=== PATIENT | female | born 1940 | race Caucasian/White ===

== ENCOUNTER 2019-10-02 09:33 | Outpatient (CLI) | payer MEDICARE, SELFPAY ==
--- NOTE | ~2019-10-02 | CT_ITS ---
EXAMINATION: CT chest abdomen pelvis w con EXAM DATE: 10/02/2019 10:12 INDICATION: B-cell lymphoma. TECHNIQUE: Spiral CT of the chest, abdomen and pelvis was performed following intravenous injection o f 100 mL Omnipaque 350. Axial, coronal and sagittal images were reviewed. Coronal maximum intensity pixel images of chest reviewed. The dose-length product (DLP) for this examination was 407.00 mGy-c m. The exposure was tailored according to patient size (auto mA exposure control), and iterative rec onstruction (ASIR) was used as additional dose reduction technique. Comparison is made to prior exami nation from 01/25/2019. FINDINGS: CHEST: Linear bibasilar subsegmental atelectasis. Cervical fusion hardware. Left-sided Chemo-Port, i ntact line. There are no pleural or pericardial effusions. Tracheobronchial tree is patent. Ther e is no mediastinal, hilar or axillary lymphadenopathy. There is no pneumothorax. Heart normal in size. No evidence of coronary arterial calcification. ABDOMEN PELVIS: Again there is extensive low density fat stranding within the mesentery extending fro m the root along the vasculature, likely treated lymphoma. Again there is bilobulated pancreatic yoli l cystic lesion, size unchanged, measuring up to about 2.7 cm with some peripheral calcifications. Th e differential diagnosis includes pseudocyst, intraductal papillary mucinous neoplasm (IPMN), mucinou s cystic neoplasm (MCN), and the less common serous cystadenoma and neuroendocrine tumor. Correlate f or history of pancreatitis. Scattered liver cysts up to 1.4 cm. There is peripherally calcified gallstone. No biliary duct dilati on. Portal and splenic veins are patent. Kidneys enhance symmetrically. There is no hydronephrosis . The uterus is retroverted and morphologically normal. The bladder is unremarkable. There is no retroperitoneal or pelvic lymphadenopathy. There is mild scattered arteriosclerotic disease. The appendix is not positively visualized. There is no pericecal inflammatory change to suggest appe ndicitis. There is mild sigmoid predominant colonic diverticulosis. There is no adjacent inflammato ry change to suggest diverticulitis. The stomach and small bowel are unremarkable. There is expected amount of colonic stool. No free intraperitoneal gas. There are no osteoblastic or osteolytic le sions identified. IMPRESSION: 1. Mesenteric root low density fat stranding likely treated lymphoma, unchanged. 2. Stable tail cystic mass, differential diagnosis above. 3. Mild sigmoid diverticulosis. 4. Cholelithiasis. Reviewed, dictated and finalized at location A. OLE MANAGER IMPRESSION: 1. Mesenteric root low density fat stranding likely treated lymphoma, unchange d. 2. Stable tail cystic mass, differential diagnosis above. 3. Mild sigmoid diverticulosis. 4. Cholelithiasis.
== END 2019-10-02 09:34 | disposition home or self-care (01) ==
LOC: ANHIMG 09:38
PROVIDERS: Visit Provider Internal Medicine Hematology & Oncology
DX: C85.18 Unspecified B-cell lymphoma, lymph nodes of multiple sites (principal); K80.20 Calculus of gallbladder without cholecystitis without obstruction; K57.30 Diverticulosis of large intestine without perforation or abscess without bleeding
CPT/HCPCS: 71260; 74177; Q9967

== ENCOUNTER 2020-05-12 08:57 | Emergency (ER) | payer MEDICARE, SELFPAY ==
[2020-05-12 09:05] VITALS: BP 160/81; PULSE 83; RESP 17; TEMP 36.2; O2SAT 99
--- NOTE | 2020-05-12 09:16 | ED.GENADULT ---
HPI - General Adult General Chief complaint: Urogenital-Female Stated complaint: hematuria Time Seen by Provider: 05/12/20 09:12 History of Present Illness HPI narrative: Patient is a 79-year-old female who presents ER with hematuria. Began last night at 10 PM. Reports she has had some suprapubic discomfort for the last couple of days. No fevers or chills or sweats. No nausea or vomiting. Had a UTI 1 month ago that was treated with Keflex for a week. Recently completed chemotherapy for non-Hodgkin's lymphoma. No flank pain or abdominal pain at this time. Patient is also suffering from some sciatica issues and has been taking naproxen and cyclobenzaprine. Patient does not take any blood thinners. Related Data Home Medications Medication Instructions Recorded Confirmed ascorbic acid (vitamin C) 500 mg PO DAILY 06/19/19 05/10/20 cholecalciferol (vitamin D3) 1,000 unit PO DAILY 06/19/19 05/10/20 [Vitamin D3] hydrocodone-acetaminophen 1 - 2 tablet PO Q4-6M PRN 06/19/19 05/10/20 vitamin B complex 1 cap PO DAILY 06/19/19 05/10/20 acetaminophen 650 mg 650 mg PO Q12H 01/25/20 05/10/20 tablet,extended release atenolol 25 mg PO DAILY 03/15/20 05/10/20 Allergies Allergy/AdvReac Type Severity Reaction Status Date / Time Mlfvzcw-Bor-Kea Reductase Allergy Unknown Muscle pain Verified 05/12/20 09:07 Inhibitor Review of Systems Review of Systems: All systems reviewed & are unremarkable except as noted in HPI and below Constitutional: Constitutional: Denies chills, Denies fever(s) and Denies weakness Respiratory: Respiratory: Denies cough and Denies dyspnea Gastrointestinal: Gastrointestinal: Reports abdominal pain, Denies diarrhea, Denies nausea and Denies vomiting Genitourinary: Genitourinary: Reports hematuria, Denies nocturia, Denies dysuria and Denies flank pain PMFSH Social History Social History Smoking status: Never smoker Second hand tobacco smoke exposure: No Alcohol intake: never Substance use: never Gender identity (if verbalized by the patient): Female Exam Narrative: Exam Narrative: GENERAL: Well-appearing, well-nourished, and in no acute distress. HEAD: Normocephalic, atraumatic. ENT: Mucous membranes moist. CHEST: Clear to auscultation. No respiratory distress. HEART: Regular rate and rhythm. Normal peripheral pulses. ABDOMEN: Soft, nontender, nondistended, normal active bowel sounds. EXTREMITIES: Normal range of motion. No edema. NEURO: Alert and oriented x3. PSYCH: Normal mood and affect. Course Course Emergency Course: Informed of results. D/c. Vital Signs Vital signs: Vital Signs Temperature 97.1 F L 05/12/20 09:05 Pulse Rate 83 05/12/20 09:05 Respiratory Rate 17 05/12/20 09:05 Blood Pressure 160/81 H 05/12/20 09:05 Pulse Oximetry 99 05/12/20 09:05 Temperature 97.1 F L 05/12/20 09:05 Pulse Rate 83 05/12/20 09:05 Respiratory Rate 17 05/12/20 09:05 Blood Pressure 160/81 H 05/12/20 09:05 Pulse Oximetry 99 05/12/20 09:05 Medical Decision Making Vital Signs Vital Signs: Vital Signs Temperature 97.1 F L 05/12/20 09:05 Pulse Rate 83 05/12/20 09:05 Respiratory Rate 17 05/12/20 09:05 Blood Pressure 160/81 H 05/12/20 09:05 Pulse Oximetry 99 05/12/20 09:05 Temperature 97.1 F L 05/12/20 09:05 Pulse Rate 83 05/12/20 09:05 Respiratory Rate 17 05/12/20 09:05 Blood Pressure 160/81 H 05/12/20 09:05 Pulse Oximetry 99 05/12/20 09:05 Lab Data Result diagrams: 05/12/20 09:15 05/12/20 09:15 Labs: Lab Results 05/12/20 05/12/20 05/12/20 Range/Units 09:15 09:15 09:15 WBC 8.4 (4.5-10.0) K/mm3 RBC 4.17 L (4.2-5.4) M/mm3 Hgb 12.7 (12.0-15.0) g/dL Hct 37.7 (37.0-47.0) % MCV 90.4 (80-100) fl MCH 30.5 (26-34) pg MCHC 33.7 (32-36) g/dl RDW 13.1 (11.5-14.5) % Plt Count 317 (150-375) k/m
[2020-05-12 09:21] LABS: Basophils Absolute Auto 0.1 K/mm3 (0.0-0.1); Basophils Percent Auto 0.9 % (0.2-1.2); Eosinophils Absolute Auto 0.2 K/mm3 (0-0.3); Eosinophils Percent Auto 2.1 % (0-4.4); Hematocrit 37.7 % (37.0-47.0); Hemoglobin 12.7 g/dL (12.0-15.0); Immature Granulocyte Absolute 0.02 K/mm3 (0.00-0.031); Immature Granulocyte Percent A 0.2 % (0-0.5); Lymphocytes Absolute Auto 1.86 K/mm3 (0.9-3.2); Mean Corpuscular HGB Conc 33.7 g/dl (32-36); Mean Corpuscular Hemoglobin 30.5 pg (26-34); Mean Corpuscular Volume 90.4 fl (80-100); Mean Platelet Volume 9.3 fl (7.4-10.4); Monocytes Absolute Auto 0.8 K/mm3 (0.1-0.6); Monocytes Percent Auto 8.9 % (2.6-8.5); Neutrophils Absolute Auto 5.6 K/mm3 (1.3-6.7); Neutrophils Percent Auto 65.9 % (45.5-73.1); Platelet Count Result 317 k/mm3 (150-375); Red Blood Count 4.17 M/mm3 (4.2-5.4); Red Cell Distribution Width 13.1 % (11.5-14.5); White Blood Count 8.4 K/mm3 (4.5-10.0)
[2020-05-12 09:27] LABS: Add Urine Microscopic? YES; Appearance Urine Cloudy (Clear); Bacteria Urine Trace /hpf; Bilirubin Urine Negative (Negative); Blood Urine 3+ (Negative); Color Urine Red (Yellow); Glucose Urine UA Negative (Negative); Ketones Urine Negative (Negative); Leukocyte Esterase Ur Trace LEU/UL (Negative); Nitrate Urine Negative (Negative); Protein Urine 2+ mg/dL (Negative); RBC Urine >75 /hpf (0-2); Specific Grav Ur 1.011 (1.001-1.035); Urobilinogen Urine Negative mg/dL (<2.0); WBC Urine 51-75 /hpf
[2020-05-12 09:38] LABS: Anion Gap 9 mmol/L (8-16); Blood Urea Nitrogen 22 mg/dL (7-17); Calcium 9.1 mg/dL (8.4-10.2); Carbon Dioxide 24 mmol/L (22-30); Chloride 107 mmol/L (98-107); Estimated CRCL calculation 27 ml/min; Estimated Glomerular Filt Rate 43; Glucose 92 mg/dL (65-105); Potassium 4.5 mmol/L (3.4-5.0); Sodium 140 mmol/L (137-145)
== END 2020-05-12 10:14 | disposition home or self-care (01) ==
PROVIDERS: Emergency Provider Emergency Medicine; PCP Family Medicine
DX: N30.90 Cystitis, unspecified without hematuria (principal); C85.90 Non-Hodgkin lymphoma, unspecified, unspecified site
CPT/HCPCS: 36415; 80048; 81001; 85025; 87086; 87088; 99283

== ENCOUNTER 2020-05-23 12:52 | Outpatient (CLI) | payer MEDICARE, SELFPAY ==
--- NOTE | 2020-05-23 12:55 | ECG_ITS ---
Measurements Intervals [place] Rate: 62 P: -50 VT: 136 QRS: -17 QRSD: 94 T: 42 QT: 406 QTc: 414 Interpretive Statements SINUS OR ECTOPIC ATRIAL RHYTHM RSR' IN V1 OR V2, CONSIDER RIGHT VENTRICULAR HYPERTROPHY OR RIGHT VCD POSSIBLE LEFT VENTRICULAR HYPERTROPHY BORDERLINE ECG Electronically Signed On 05-23-2020 13:15:20 CDT by Shay Cornell D.O.
== END 2020-05-23 12:53 | disposition home or self-care (01) ==
PROVIDERS: PCP Family Medicine; Visit Provider Urology
DX: Z01.818 Encounter for other preprocedural examination (principal); N13.30 Unspecified hydronephrosis; I10 Essential (primary) hypertension
CPT/HCPCS: 87086; 87088; 93005

== ENCOUNTER 2020-05-25 01:20 | Outpatient (CLI) | payer MEDICARE, SELFPAY ==
[2020-05-25 17:48] LABS: SARS-CoV-2 RNA PCR Negative
== END 2020-05-25 01:21 | disposition home or self-care (01) ==
LOC: ANHCOVIDDT 01:20
PROVIDERS: PCP Family Medicine; Visit Provider Urology
DX: Z01.812 Encounter for preprocedural laboratory examination (principal); Z20.828 Contact with and (suspected) exposure to other viral communicable diseases
CPT/HCPCS: 87635; C9803; U0003

== ENCOUNTER 2020-05-27 10:43 | Outpatient (CLI) | payer MEDICARE, SELFPAY ==
--- NOTE | ~2020-05-27 | US_ITS ---
EXAMINATION: US pelvic complete w TV EXAM DATE: 05/27/2020 11:42 INDICATION: Postmenopausal bleeding. TECHNIQUE: Pelvic transabdominal and transvaginal sonogram was performed. There are multiple graysca le and Doppler images available for interpretation. There is no prior study for comparison. FINDINGS: Uterus measures 6.6 x 5.1 x 4.5 cm, with a fluid pocket inside the endometrium identified on the transvaginal portion of exam measuring 3.5 x 1.6 x 4.1 cm. There are multiple uterine calcific ations. No endometrial measurement was obtained but it would include the thickness of the fluid so wo uld be considered enlarged. There is no free pelvic fluid. Right adnexa: The ovary is not identified. There is no adnexal mass. Left adnexa: The ovary is not identified. There is no adnexal mass. IMPRESSION: Sizable endometrial fluid pocket of uncertain clinical significance. Endometrial cancer n ot excludable. Reviewed, dictated and finalized at location A. IMPRESSION: Sizable endometrial fluid pocket of uncertain clinical significance . Endometrial cancer not excludable.
== END 2020-05-27 10:44 | disposition home or self-care (01) ==
LOC: ANHIMG 10:45
PROVIDERS: PCP Family Medicine; Visit Provider Student in an Organized Health Care Education/Training Program
DX: N95.0 Postmenopausal bleeding (principal)
CPT/HCPCS: 76830; 76856

== ENCOUNTER 2020-05-28 02:20 | Day surgery (SDC) | payer MEDICARE, SELFPAY ==
[2020-05-22 11:27] VITALS: BMI 24.5
--- NOTE | ~2020-05-28 | XR_ITS ---
EXAMINATION: XR retrograde pyelogram RT EXAM DATE: 05/28/2020 08:52 INDICATION: TECHNIQUE: Fluoroscopy used during XR retrograde pyelogram RT performed by Dr. Ben Vela MD. The DAP for this procedure was 0.15 mGym2. FINDINGS: Right ureter was cannulated, injected and is unremarkable. The calyces are unremarkable. Correlate with procedure note. IMPRESSION: Fluoroscopy used during XR retrograde pyelogram RT. Reviewed, dictated and finalized at location A.
[2020-05-28] MEDS: LACTATED RINGERS 1,000 ML 30 ML IV CONT (07:11)
--- NOTE | 2020-05-28 07:16 | WPDHPUPDATE1 ---
History and Physical Update Update Date/Time: 05/28/20 07:16 History and Physical has been reviewed, including an updated exam of the patient. There are NO changes in the patient's condition. Risks, benefits, and alternatives have been discussed and questions answered. Patient agrees to proceed with procedure. Plan for cystoscopy , left retrograde, left ureteral stent placement.
[2020-05-28 07:28] VITALS: BP 166/81; PULSE 58; RESP 18; TEMP 36.4; O2SAT 100
--- NOTE | 2020-05-28 07:46 | WPDANESEPPF ---
Anes - Initial Pre Proc Eval Procedure: Operation Date: 05/28/20 08:30 Proposed Procedures p Cystoscopy, Left Stent Placement, Left Retrograde Pyelogram - Ben Vela MD Date/Time: 05/28/20 07:46 Surgeon: Ben Vela MD Pre Op Diagnosis: hydronephrosis left side Patient Data Age: 79 Gender: F Height: 5 ft 2 in Weight: 60.9 kg Last Vital Signs Temp 36.4 C 05/28/20 07:28 Pulse 58 L 05/28/20 07:28 Resp 18 05/28/20 07:28 BP 166/81 H 05/28/20 07:28 Pulse Ox 100 05/28/20 07:28 Allergies Allergy/AdvReac Type Severity Reaction Status Date / Time Zvqsqpp-Mfb-Ayy Reductase AdvReac Unknown Muscle pain Verified 05/22/20 11:23 Inhibitor Home Medications Medication Instructions Recorded Confirmed Type ascorbic acid (vitamin C) 500 mg PO DAILY 06/19/19 05/28/20 History cholecalciferol (vitamin D3) 1,000 unit PO DAILY 06/19/19 05/28/20 History [Vitamin D3] hydrocodone-acetaminophen 1 - 2 tablet PO Q4-6M PRN 06/19/19 05/28/20 History vitamin B complex 1 cap PO DAILY 06/19/19 05/28/20 History atenolol 25 mg PO QAM 05/22/20 05/28/20 History Patient hx anesthesia problems: none Family hx anesthesia problems: none PMFSH Past Medical History Medical History (Updated 05/28/20 @ 07:50 by Ben Vela MD) Anxiety (~05/2018) HTN (hypertension) Hyperlipidemia Non-Hodgkins lymphoma (~09/2017) Surgical History Surgical History History of appendectomy (~1979) History of back surgery (~1974) History of carpal tunnel release (~1999) History of hemorrhoidectomy (~1959) History of neck surgery (~2001) Family History Family History Other Cerebrovascular accident Diabetes mellitus Family history of coronary artery disease Social History Social History Smoking status: Never smoker Second hand tobacco smoke exposure: No Alcohol intake: never Substance use: never Living arrangements: with family Additional living arrangements comments: SON WITH PREVIOUS HEAD INJURY- JAMES Gender identity (if verbalized by the patient): Female Spiritual care concerns: No Anes - Eval Final PreProcedure Day of Procedure 05/28/20 07:46 Patient weight: normal Heart: regular rate and rhythm Lungs: clear to auscultation Airway: Mallampati scale class II Neurological: alert and oriented Last oral intake: >/= 8 hours ASA classification: III Emergent: no Anesthetic plan: proceed Anesthesia type and monitoring: general LMA and standard monitoring Informed Consent: The patient's anesthetic plan and its attendant risks and benefits were discussed with the patient/family/POA. Questions were solicited and answers provided to the satisfaction of the patient/family/POA.
--- NOTE | 2020-05-28 07:49 | PM.IMHP ---
H&P: HPI History of Present Illness Date/Time: 05/28/20 07:49 Chief complaint: hydronephrosis left side Narrative: Sylvia Donnelly is a 79 year old female with left hydronephrosis secondary to extrinsic obstruction Review of Systems Review of Systems: All systems reviewed & are unremarkable except as noted in HPI and below PMFSH Past Medical History Medical History Anxiety (~05/2018) HTN (hypertension) Hyperlipidemia Non-Hodgkins lymphoma (~09/2017) Surgical History Surgical History History of appendectomy (~1979) History of back surgery (~1974) History of carpal tunnel release (~1999) History of hemorrhoidectomy (~1959) History of neck surgery (~2001) Family History Family History Other Cerebrovascular accident Diabetes mellitus Family history of coronary artery disease Social History Social History Smoking status: Never smoker Second hand tobacco smoke exposure: No Alcohol intake: never Substance use: never Living arrangements: with family Additional living arrangements comments: SON WITH PREVIOUS HEAD INJURY- JAMES Gender identity (if verbalized by the patient): Female Spiritual care concerns: No Meds Home Medications and Allergies Home Medications Medication Instructions Recorded Confirmed Type ascorbic acid (vitamin C) 500 mg PO DAILY 06/19/19 05/28/20 History cholecalciferol (vitamin D3) 1,000 unit PO DAILY 06/19/19 05/28/20 History [Vitamin D3] hydrocodone-acetaminophen 1 - 2 tablet PO Q4-6M PRN 06/19/19 05/28/20 History vitamin B complex 1 cap PO DAILY 06/19/19 05/28/20 History atenolol 25 mg PO QAM 05/22/20 05/28/20 History Allergies Allergy/AdvReac Type Severity Reaction Status Date / Time Vknzshw-Qia-Pom Reductase AdvReac Unknown Muscle pain Verified 05/22/20 11:23 Inhibitor Vital Signs Vital Signs - 24 hr 05/28/20 07:28 Temperature 36.4 C Pulse Rate 58 L Respiratory Rate 18 Blood Pressure 166/81 H Pulse Oximetry 100 Exam Const: General: no acute distress HENMT: General nose exam: Normal nares present Eyes: General: appearance normal, both eyes and all related structures Resp: Effort & Inspection: normal respiratory effort Cardio: Rate: regular rate GI: GI Palp: Yes Soft to palpation Skin: General skin exam: normal color Neuro: Speech: normal speech Assessment and Plan Assessment and plan (1) Hydronephrosis, left: Code(s): N13.30 - Unspecified hydronephrosis Status: Acute Assessment and Plan: Cystoscopy with left retrograde, left ureteral stent placement.
[2020-05-28] MEDS: ceFAZolin 2 GM/D5W 50 ML 2 GM/50 ML BAG IVPB (08:05)
[2020-05-28] MEDS: LIDOCAINE HCL 2% GEL UROJET 10 ML PKG MUCOUS MEM (08:44)
[2020-05-28 08:52] VITALS: BP 121/69; PULSE 52; RESP 14; O2SAT 100
--- NOTE | 2020-05-28 08:56 | P.OP_ITS ---
Procedure Note - Detailed Date of procedure: 05/28/20 Pre-op diagnosis: hydronephrosis left side Post-op diagnosis: same (Obliteration of left pili trigone with possible lesion) Procedure performed: Cystoscopy, transurethral resection of bladder lesion overlying left ureteral orifice/pili trigone, right retrograde pyelogram Description of procedure: Patient is taken to the operative suite and correctly identified. Once anesthesia was obtained she was placed in dorsal lithotomy position and prepped and draped usual sterile fashion. Twenty-two Chinese scope was inserted bladder. Bladder was noted to have significant irregularity over t he left pili trigone. It was vascular in nature and raised. There was no discrete papillary tumors noted. We were unable to visualize any left ureteral orifice. The right ureteral orifice was seen. At this point we decided to resect this area for tissue diagnosis. Despite the resection we were still unable to locate any ureteral orifice.. A right retrograde pyelogram was performed to confirm no significant obstruction on that side. There were no lesions noted. Specimens were sent for final pathologic review. 2% viscous lidocaine was inserted urethra. There was good hemostasis at termination of procedure. Patient is taken recovery stable condition. Patient has left hydronephrosis has been longstanding as she has been asymptomatic. We will see whether pathology shows. If she develops any left flank pain she may require a nephrostomy tube. Further management pending her pathology. Have discussed the case with her niece, Peg, today Anesthesia: GLMA Surgeon: Ben Vela MD Drains: No Packing: No Pathology: yes Complications: No immediate complications Condition: stable Disposition: PACU
[2020-05-28 09:20] VITALS: BP 156/70; PULSE 43; RESP 14; O2SAT 97
[2020-05-28 09:50] VITALS: BP 164/81; PULSE 47; RESP 14
== END 2020-05-28 10:16 | disposition home or self-care (01) ==
PROVIDERS: PCP Family Medicine; Visit Provider Urology
PROC: (CPT 52352; principal; 2020-05-28 08:30)
DX: C67.0 Malignant neoplasm of trigone of bladder (principal); N13.30 Unspecified hydronephrosis; N39.0 Urinary tract infection, site not specified; I10 Essential (primary) hypertension; E78.5 Hyperlipidemia, unspecified; C85.90 Non-Hodgkin lymphoma, unspecified, unspecified site
CPT/HCPCS: 52235; 74420; 88305; 88342; A9270; C1758; C1769; J0690; J2405; J2704; J3010; J7120; Q9966

== ENCOUNTER 2020-06-11 00:11 | Outpatient (CLI) | payer MEDICARE, SELFPAY ==
[2020-06-11 19:00] LABS: SARS-CoV-2 RNA PCR Negative
== END 2020-06-11 00:12 | disposition home or self-care (01) ==
LOC: ANHCOVIDDT 00:11
PROVIDERS: PCP Family Medicine; Visit Provider Student in an Organized Health Care Education/Training Program
DX: Z01.812 Encounter for preprocedural laboratory examination (principal); Z20.828 Contact with and (suspected) exposure to other viral communicable diseases
CPT/HCPCS: 87635; C9803; U0003

== ENCOUNTER 2020-06-11 11:48 | Outpatient (CLI) | payer MEDICARE, SELFPAY ==
--- NOTE | ~2020-06-11 | PE_ITS ---
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 10.994 mCi of 18-fluorodeoxyglucose (18-FDG) was adminis tered i.v. Low dose computed tomography (CT) images were acquired from the base of the brain to the p roximal thighs for attenuation correction and anatomic localization. Positron emission tomography (PE T) images were acquired in the same distribution beginning 61 minutes after injection. Images includi ng fused PET/CT images were reconstructed in axial, coronal, and sagittal planes. Automated exposure control technique was employed. The dose-length product was 318.37mGy-cm. COMPARISON: CT chest, abdomen and pelvis dated 10/02/2019 and PET/CT dated 03/08/2018 FINDINGS: Head/neck: There is symmetric increased activity in the oral cavity, palatine tonsils, parotid glands, submandi bular glands, laryngeal muscles and ocular muscles without CT correlate, likely physiologic. No patho logically enlarged cervical lymphadenopathy or suspicious foci of increased FDG uptake in the visuali zed head or neck. C5-C7 anterior spinal fusion with anterior plate and screw fixation. Chest: Left subclavian central venous port catheter with distal tip at the superior cavoatrial junction. Unc hanged mild discoid atelectasis/scarring in the bilateral lower lobes. Scattered respiratory motion w hich limits assessment of fine pulmonary parenchymal detail. No suspicious pulmonary nodules. No pleu ral effusion. Cardiomegaly. No pericardial effusion. Ectatic ascending thoracic aorta measuring up to 4.2 cm in maximal diameter. No pathologically enlarged or FDG avid thoracic lymphadenopathy. Mild sy novial uptake at the bilateral shoulders likely reactive related to moderate bilateral glenohumeral o steoarthritis. Abdomen/pelvis/proximal thighs: Gallstone in the otherwise normal-appearing gallbladder. Normal degree and heterogenous pattern of in creased uptake throughout the liver without radiologic correlate or dominant FDG avid lesion. No inte rval change in a few scattered low-attenuation hepatic cysts which are without corresponding FDG upta ke. No interval change in an approximately 2.8 cm x 1.2 cystic lesion with coarse peripheral calcific ation at the tail of the pancreas which is without abnormal increased FDG uptake to suggest malignanc y. Spleen and bilateral adrenal glands are normal. There is severe left hydronephrosis extending into the the pelvis with likely secondary mild cortical atrophy at the left kidney and significantly decreased activity at the left kidney with no discernib le excreted activity at the left renal collecting system. Physiologic renal accumulation and excretio n of FDG activity in the right kidney extending into the right ureter and partially decompressed blad lindsay. Mild to moderate uptake scattered throughout the bowels without radiologic correlate, also likel y physiologic. No other abnormal foci of increased FDG uptake or pathologically enlarged lymphadenopa thy in the abdomen, pelvis or proximal thighs. There is an approximately 4 x 3 cm hypodense region wi thout FDG activity at the central aspect of the uterine fundus corresponding to a large endometrial f luid collection seen on recent ultrasound dated 05/27/2020. There is increased FDG uptake with maximal SUV of 10.6 located in the region of the lower uterine segment. The dilated distal left ureter exten ds to this region which is concerning for malignancy and potentially represents etiology for the obst ruction resulting in the superior left hydroureteronephrosis. Again seen is stranding in the small caro wel mesentery without evident increased FDG uptake consistent with treated lymphoma. No pathologicall y enlarged or FDG avid abdominal or pelvic lymphadenopathy. Severe lower lumbar spondylosis. Mild ri ght and moderate left hip osteoarthritis. No
[2020-06-11 12:16] LABS: Glucose Point of Care 91 (65-105)
== END 2020-06-11 11:49 | disposition home or self-care (01) ==
PROVIDERS: PCP Family Medicine; Visit Provider Urology
DX: C67.8 Malignant neoplasm of overlapping sites of bladder (principal); N13.1 Hydronephrosis with ureteral stricture, not elsewhere classified; K80.20 Calculus of gallbladder without cholecystitis without obstruction
CPT/HCPCS: 78815; 87635; A9552; C9803; U0003

== ENCOUNTER 2020-06-13 00:24 | Day surgery (SDC) | payer MEDICARE, SELFPAY ==
[2020-06-05 15:34] VITALS: BMI 24.3
--- NOTE | 2020-06-13 07:18 | PM.IMHP ---
H&P: HPI History of Present Illness Date/Time: 06/13/20 07:18 Chief complaint: Postmenopausal Bleeding Narrative: Sylvia Donnelly is a 79 year old female who presents for hysterosocpy and D&C for postmenopausal bleeding. Pt was initially referred to me from an ED evaluation for pelvic pain and postmenopausal bleeding. Imaging studies showed an enlarged uterus and a possible intrauterine mass. pelvic US in my office showed an intrauterine pocket of fluid. Endometrial biopsy returned HSIL and no diagnostic endometrium. Review of Systems Review of Systems: All systems reviewed & are unremarkable except as noted in HPI and below Cardiovascular: Cardiovascular: Denies chest pain, Denies leg edema, Denies palpitations, Denies dyspnea and Denies dyspnea on exertion Respiratory: Respiratory: Denies cough, Denies dyspnea and Denies dyspnea on exertion Gastrointestinal: Gastrointestinal: Denies abdominal pain, Denies constipation, Denies diarrhea, Denies nausea and Denies vomiting Genitourinary: Genitourinary: Denies hematuria, Denies urinary frequency, Denies dysuria, Denies pelvic pain, Denies urinary incontinence and Denies vaginal discharge Neurologic: Reports system reviewed and no additional complaints, except as documented Psychiatric: Psychiatric: Reports no additional psychiatric complaints Endocrine: Endocrine: Denies palpitations PMFSH Past Medical History Medical History (Updated 06/13/20 @ 07:22 by Berny Desai MD) Anxiety (~05/2018) HTN (hypertension) Hyperlipidemia Non-Hodgkins lymphoma (~09/2017) Surgical History Surgical History History of appendectomy (~1979) History of back surgery (~1974) History of carpal tunnel release (~1999) History of hemorrhoidectomy (~1959) History of neck surgery (~2001) Family History Family History Other Cerebrovascular accident Diabetes mellitus Family history of coronary artery disease Social History Social History Smoking status: Never smoker Second hand tobacco smoke exposure: No Alcohol intake: never Substance use: never Living arrangements: with family Additional living arrangements comments: SON WITH PREVIOUS HEAD INJURY- JAMES Gender identity (if verbalized by the patient): Female Spiritual care concerns: No Meds Home Medications and Allergies Home Medications Medication Instructions Recorded Confirmed Type ascorbic acid (vitamin C) 500 mg PO DAILY 06/19/19 06/05/20 History cholecalciferol (vitamin D3) 1,000 unit PO DAILY 06/19/19 06/05/20 History [Vitamin D3] hydrocodone-acetaminophen 1 - 2 tablet PO Q4-6M PRN 06/19/19 06/05/20 History vitamin B complex 1 cap PO DAILY 06/19/19 06/05/20 History atenolol 25 mg PO QAM 05/22/20 06/05/20 History Allergies Allergy/AdvReac Type Severity Reaction Status Date / Time Gfqujvg-Ikh-Hbr Reductase AdvReac Unknown Muscle pain Verified 06/05/20 15:12 Inhibitor Exam Const: General: no acute distress Eyes: EOM: EOMs intact bilaterally Neck: Neck: supple Thyroid: thyroid normal Chest: Breast/axilla inspection: normal inspection of the breasts Breast/axilla palpation: normal palpation of the breasts, normal palpation of the axillae and no axillary lymphadenopathy Resp: Effort & Inspection: normal respiratory effort Auscultation: clear to auscultation bilaterally Cardio: Rate: regular rate Rhythm: regular rhythm GI: Inspection: non-distended GI Palp: Yes Soft to palpation, No Tenderness to palpation present (GI) and No Guarding due to palpation present (GI) Auscultation: normal bowel sounds : General: No bladder normal to palpation External Female Exam: normal external appearance Speculum Exam - Vagina: normal vaginal discharge and vaginal bleeding Speculum Exam - Cervix: nontender Bimanual exam- vagi
--- NOTE | 2020-06-13 07:24 | WPDHPUPDATE1 ---
History and Physical Update Update Date/Time: 06/13/20 07:24 History and Physical has been reviewed, including an updated exam of the patient. There are NO changes in the patient's condition. Risks, benefits, and alternatives have been discussed and questions answered. Patient agrees to proceed with procedure.
[2020-06-13] MEDS: ACETAMINOPHEN 500 MG TABLET 1000 MG PO (10:22)
[2020-06-13] MEDS: LACTATED RINGERS 1,000 ML 30 ML IV CONT ×2 (10:30→13:39)
[2020-06-13 10:34] VITALS: BP 146/77; PULSE 62; TEMP 36.7; O2SAT 96
--- NOTE | 2020-06-13 10:38 | WPDANESEPPF ---
Anes - Initial Pre Proc Eval Procedure: Operation Date: 06/13/20 12:00 Proposed Procedures p Hysteroscopy, Dilation and Curettage - Berny Desai MD Date/Time: 06/13/20 10:38 Surgeon: Berny Desai MD Pre Op Diagnosis: Postmenopausal Bleeding Patient Data Age: 79 Gender: F Height: 5 ft 2 in Weight: 59.2 kg Last Vital Signs Temp 36.7 C 06/13/20 10:34 Pulse 62 06/13/20 10:34 BP 146/77 H 06/13/20 10:34 Pulse Ox 96 06/13/20 10:34 Allergies Allergy/AdvReac Type Severity Reaction Status Date / Time [id number]-Cpf-Vwj Reductase AdvReac Unknown Muscle pain Verified 06/05/20 15:12 Inhibitor Home Medications Medication Instructions Recorded Confirmed Type ascorbic acid (vitamin C) 500 mg PO DAILY 06/19/19 06/13/20 History cholecalciferol (vitamin D3) 1,000 unit PO DAILY 06/19/19 06/13/20 History [Vitamin D3] vitamin B complex 1 cap PO DAILY 06/19/19 06/13/20 History atenolol 25 mg PO QAM 05/22/20 06/13/20 History tramadol 50 06/13/20 History Patient hx anesthesia problems: none Family hx anesthesia problems: none PMFSH Past Medical History Medical History Anxiety (~05/2018) HTN (hypertension) Hyperlipidemia Non-Hodgkins lymphoma (~09/2017) Surgical History Surgical History History of appendectomy (~1979) History of back surgery (~1974) History of carpal tunnel release (~1999) History of hemorrhoidectomy (~1959) History of neck surgery (~2001) Family History Family History Other Cerebrovascular accident Diabetes mellitus Family history of coronary artery disease Social History Social History Smoking status: Never smoker Second hand tobacco smoke exposure: No Alcohol intake: never Substance use: never Living arrangements: with family Additional living arrangements comments: SON WITH PREVIOUS HEAD INJURY- JAMES Gender identity (if verbalized by the patient): Female Spiritual care concerns: No Anes - Eval Final PreProcedure Day of Procedure 06/13/20 10:38 Patient weight: normal Heart: regular rate and rhythm Lungs: clear to auscultation Airway: Mallampati scale class II Neurological: alert and oriented Last oral intake: >/= 8 hours ASA classification: III Emergent: no Anesthetic plan: proceed Anesthesia type and monitoring: general GIVS and standard monitoring Informed Consent: The patient's anesthetic plan and its attendant risks and benefits were discussed with the patient/family/POA. Questions were solicited and answers provided to the satisfaction of the patient/family/POA.
--- NOTE | 2020-06-13 13:32 | SUR.OPER ---
Ebl=20ml
--- NOTE | 2020-06-13 13:38 | PM.PROC ---
Procedure Note - Detailed Date of procedure: 06/13/20 Pre-op diagnosis: Postmenopausal Bleeding Post-op diagnosis: same Procedure performed: Hysteroscopy Dilation and curettage paracervical block repeat Pap smear Description of procedure: The patient was taken to the OR and general anesthesia induced. Prior to the procedure, repeat pap smear was performed. She was prepped and draped in candy cane stirrups with support of the back and bilateral lower extremities. I/O catheterization performed of the bladder. Infiltration with 1% lidocaine at the 3 and 9 o'clock cervical positions was performed. A single tooth tenaculum was placed on the anterior lip of the cervix. Upon dilation of the cervix, a brown serosanguinous fluid was noted to flow from uterus. This fluid was collected on a telfa and placed in formalin. The cervix was dilated with sequential Pauline dilators. Hysteroscopy, using a normal saline medium, was performed. There were no gross abnormalities within the uterus. The endometrium appeared pale and atrophic. Sharp uterine curettage was then performed and tissue placed on Telfa. The tenaculum was removed and hemostasis was observed. The patient tolerated the procedure well. Sponge, lap, and needle counts were correct. The patient had SCD's on throughout the case for VTE prophylaxis. The patient was taken to the recovery room in stable condition. Anesthesia: GETA Surgeon: Berny Desai MD Estimated blood loss (mL): 20 Drains: No Packing: No Pathology: yes (endometrial curettings and contents) Complications: No immediate complications Condition: stable Disposition: PACU
[2020-06-13 13:39] VITALS: BP 150/67; PULSE 69; RESP 18; O2SAT 100
[2020-06-13 14:10] VITALS: BP 174/77; PULSE 55; RESP 18; O2SAT 100
--- NOTE | 2020-06-13 14:26 | SUR.PHASEII ---
PT AWAKE AND ALERT. STATES LOWER ABD PAIN AT 5/10 AND TOLERABLE. PT STATES SHE DOES NOT WANT ANY PAIN MEDICINE AT THIS TIME. STATES READY TO GO HOME.
--- NOTE | 2020-06-13 14:29 | SUR.PHASEII ---
DR TAM NOTIFIED OF PT BP 170'S/77. HR 55. PT MAY GO HOME PER DR TAM.
[2020-06-13 14:35] VITALS: BP 152/87; PULSE 53; RESP 18; O2SAT 99
--- NOTE | 2020-06-13 14:51 | SUR.PHASEII ---
PT DRESSED AND READY FOR DISCHARGE. MEETS CRITERIA. WAITING ON RIDE
== END 2020-06-13 15:09 | disposition home or self-care (01) ==
PROVIDERS: PCP Family Medicine; Visit Provider Student in an Organized Health Care Education/Training Program
PROC: 0U5B8ZZ Destruction of Endometrium, Via Natural or Artificial Opening Endoscopic (ICD-10-PCS; CPT 58563; principal; 2020-06-13 12:00)
DX: C54.1 Malignant neoplasm of endometrium (principal); I10 Essential (primary) hypertension; E78.5 Hyperlipidemia, unspecified; F41.9 Anxiety disorder, unspecified; Z85.72 Personal history of non-Hodgkin lymphomas
CPT/HCPCS: 58558; 88305; A9270; J2704; J3010; J7030; J7120

== ENCOUNTER 2020-08-17 09:45 | Outpatient (CLI) | payer MEDICARE, SELFPAY ==
[2020-08-17 10:21] LABS: Basophils Absolute Auto 0.1 K/mm3 (0.0-0.1); Basophils Percent Auto 0.8 % (0.2-1.2); Eosinophils Absolute Auto 0.2 K/mm3 (0-0.3); Eosinophils Percent Auto 2.4 % (0-4.4); Hematocrit 35.3 % (37.0-47.0); Hemoglobin 11.8 g/dL (12.0-15.0); Immature Granulocyte Absolute 0.02 K/mm3 (0.00-0.031); Immature Granulocyte Percent A 0.3 % (0-0.5); Lymphocytes Absolute Auto 1.33 K/mm3 (0.9-3.2); Lymphocytes Percent Auto 17.4 % (18.3-44.2); Mean Corpuscular HGB Conc 33.4 g/dl (32-36); Mean Corpuscular Hemoglobin 30.6 pg (26-34); Mean Corpuscular Volume 91.7 fl (80-100); Monocytes Absolute Auto 0.6 K/mm3 (0.1-0.6); Monocytes Percent Auto 8.4 % (2.6-8.5); Neutrophils Absolute Auto 5.4 K/mm3 (1.3-6.7); Neutrophils Percent Auto 70.7 % (45.5-73.1); Platelet Count Result 318 k/mm3 (150-375); Red Blood Count 3.85 M/mm3 (4.2-5.4); Red Cell Distribution Width 13.2 % (11.5-14.5); White Blood Count 7.6 K/mm3 (4.5-10.0)
== END 2020-08-17 09:46 | disposition home or self-care (01) ==
PROVIDERS: PCP Family Medicine
DX: C53.0 Malignant neoplasm of endocervix (principal); N93.9 Abnormal uterine and vaginal bleeding, unspecified
CPT/HCPCS: 36415; 85025

== ENCOUNTER 2020-10-14 10:43 | Emergency (ER) | payer MEDICARE, SELFPAY ==
--- NOTE | ~2020-10-14 | XR_ITS ---
EXAMINATION: XR nephrostomy tube change DATE: 10/14/2020 15:02 INDICATION: Damaged left percutaneous nephrostomy tube TECHNIQUE: A time-out was performed to verify the patient's name, date of , and procedure to b e performed. The procedure including the risks, benefits, and alternatives was discussed with the pat ient. Risks discussed included bleeding and infection. The patient understood the risks and agreed to proceed. The patient had received 1 g of Ancef IV in the ED for prophylaxis one hour prior to the pr ocedure. 2 mL of 1% lidocaine was injected subcutaneous for local anesthesia. The skin at the left fl ank at the catheter access site along with the catheter was prepped and draped in usual sterile fashi on. 10 mL Omnipaque-350 was injected into the catheter and fluoroscopic image obtained to confirm pos ition within the collecting system. A [employer] wire was advanced through the existing nephrostomy tube into the opacified left renal pelvis. The damaged catheter was removed over the wire and a new 8.5 F rench drainage catheter was advanced over the wire under fluoroscopic observation. The loop was forme d and locked and the wire removed. The catheter was stitched to the skin and antibiotic ointment and a sterile dressing were applied. There were no immediate complications. Fluoroscopy exposure time was 0.2 minutes. The total number of images was 4. FINDINGS: Real-time fluoroscopy demonstrates the new 8.5 Austrian percutaneous nephrostomy tube positio richard within the contrast opacified left renal pelvis. IMPRESSION: 1. Successful exchange of a damaged left percutaneous nephrostomy tube for a new 8.5 Austrian percutane ous nephrostomy tube. Reviewed, dictated and finalized at location A. AVER TIRE MOLD IMPRESSION: 1. Successful exchange of a damaged left percutaneous nephrostomy tube for a ne w 8.5 Austrian percutaneous nephrostomy tube.
[2020-10-14 11:01] VITALS: BP 108/74; PULSE 97; RESP 16; TEMP 36.6; O2SAT 98
--- NOTE | 2020-10-14 11:48 | ED.GENADULT ---
HPI - General Adult General Chief complaint: Unspecified Stated complaint: urinary symptoms Time Seen by Provider: 10/14/20 10:48 Source: patient Mode of arrival: ambulatory Limitations: no limitations History of Present Illness HPI narrative: Patient is a 79-year-old female who presents with damaged nephrostomy tube. Patient recently just finished chemo and radiation from cervical/bladder cancer. Patient reports that she was changing dressing and bandages this a.m. when she attempted to cut tape, she cut the tube accidently. She denies pain or further complaints. Related Data Home Medications Medication Instructions Recorded Confirmed ascorbic acid (vitamin C) 500 mg PO DAILY 06/19/19 08/12/20 cholecalciferol (vitamin D3) 1,000 unit PO DAILY 06/19/19 08/12/20 [Vitamin D3] vitamin B complex 1 cap PO DAILY 06/19/19 06/13/20 atenolol 25 mg PO QAM 05/22/20 08/12/20 hydrocodone 10 mg-acetaminophen 1 tablet PO Q6H PRN 08/12/20 08/12/20 325 mg tablet Allergies Allergy/AdvReac Type Severity Reaction Status Date / Time Ajyudqs-Txt-Pou Reductase AdvReac Unknown Muscle pain Verified 10/14/20 11:04 Inhibitor Review of Systems Review of Systems: Narrative: CONSTITUTIONAL: Denies fever, chills, or sweats. EYES: Denies visual changes, redness, or discharge. ENT: Denies rhinorrhea, congestion, sore throat, or otalgia. CARDIOVASCULAR: Denies chest pain, palpitations, or edema. RESPIRATORY: Denies cough or dyspnea. GASTROINTESTINAL: Denies abdominal pain, nausea, vomiting, or diarrhea. GENITOURINARY: Denies dysuria or hematuria. SKIN: Denies rash or itching. MUSCULOSKELETAL: Denies back pain, joint pain, or myalgia. NEUROLOGIC: Denies headache, numbness, dizziness, or weakness. PSYCHIATRIC: Denies anxiety or depression. [facility] Past Medical History Medical History Anxiety (~05/2018) HTN (hypertension) Hyperlipidemia Non-Hodgkins lymphoma (~09/2017) Postmenopausal bleeding Surgical History Surgical History History of appendectomy (~1979) History of back surgery (~1974) History of carpal tunnel release (~1999) History of hemorrhoidectomy (~1959) History of neck surgery (~2001) Family History Family History Other Cerebrovascular accident Diabetes mellitus Family history of coronary artery disease Social History Social History Smoking status: Never smoker Second hand tobacco smoke exposure: No Alcohol intake: never Substance use: never Additional living arrangements comments: SON WITH PREVIOUS HEAD INJURY- JAMES Gender identity (if verbalized by the patient): Female Spiritual care concerns: No Comments At the time of signature, I have reviewed and agree with nursing past medical, surgical, social, and family history unless otherwise noted. Please see nursing chart for further information. There is no relevant family history pertinent to the presenting complaint. Exam Narrative: Exam Narrative: GENERAL: Well-appearing, well-nourished, and in no acute distress. HEAD: Normocephalic, atraumatic. EYES: No redness or drainage. Conjunctiva are normal. ENT: Mucous membranes pink and moist. CHEST: No respiratory distress. HEART: Regular rate and rhythm. EXTREMITIES: Normal range of motion. No edema. SKIN: Warm, dry, no rash. NEURO: No focal deficits. Alert and oriented x3. Gait steady. PSYCH: Normal affect. No signs of depression or anxiety. Course Course Emergency Course: Patient to have nephrostomy tube replaced by Dr. Abebe. Patient awaiting procedure in interventional radiology. Vital Signs Vital signs: Vital Signs Temperature 36.6 C 10/14/20 11:01 Pulse Rate 97 10/14/20 11:01 Respiratory Rate 16 10/14/20 11:01 Blood Pressure 108/74 10/14/20 11:0
[2020-10-14 13:57] VITALS: BP 138/84; PULSE 84; RESP 14; O2SAT 100
[2020-10-14 16:50] VITALS: BP 110/63; PULSE 69; RESP 15; O2SAT 99
== END 2020-10-14 16:52 | disposition home or self-care (01) ==
PROVIDERS: Emergency Provider Nurse Practitioner; PCP Family Medicine
DX: Z43.6 Encounter for attention to other artificial openings of urinary tract (principal); C53.9 Malignant neoplasm of cervix uteri, unspecified; C67.9 Malignant neoplasm of bladder, unspecified; I10 Essential (primary) hypertension; E78.5 Hyperlipidemia, unspecified; Z85.72 Personal history of non-Hodgkin lymphomas
CPT/HCPCS: 50435; 96365; 99284; C1769; J0690; Q9966; Q9967

== ENCOUNTER 2020-12-25 11:00 | Outpatient (CLI) | payer MEDICARE, SELFPAY ==
[2020-12-25 12:01] LABS: Cholesterol 207 mg/dL (0-200); HDL Direct 74 mg/dL; Triglycerides 91 mg/dL (<150)
[2020-12-25 12:12] LABS: LDL Cholesterol Direct 92 mg/dL
[2020-12-29 04:56] LABS: Vitamin D 1,25 (OH)2 Total 16 pg/mL (18-72); Vitamin D2 1,25 (OH)2 <8 pg/mL; Vitamin D3 1,25 (OH)2 16 pg/mL
== END 2020-12-25 11:01 | disposition home or self-care (01) ==
PROVIDERS: PCP Family Medicine; Visit Provider Nurse Practitioner Family
DX: E78.5 Hyperlipidemia, unspecified (principal); E55.9 Vitamin D deficiency, unspecified
CPT/HCPCS: 36415; 80061; 82652

== ENCOUNTER 2021-02-20 09:12 | Inpatient (IN) | payer MEDICARE, SELFPAY ==
--- NOTE | ~2021-02-20 | XR_ITS ---
XR chest 1V portable DATE: 03/06/2021 05:25 INDICATION: Acute respiratory failure. Covid 19 pneumonia. TECHNIQUE: Portable upright AP chest on 03/18/2021 at 0522 hours COMPARISON: 03/05/2021 portable AP chest FINDINGS: ET tube in satisfactory position 3 cm above farhad. NG tube in gastric fundus. Left Port-A-Cath catheter tip in lower aspect of superior vena cava. There is diminished subcutaneous emphysema of the chest wall and cervical region and slight if any re sidual right apical pneumothorax since 03/05/2021. Pneumomediastinum is again noted. Bilateral hyperinflation of the lungs. Diffuse right lung and left lower lung infiltrates appear rela tively stable since 07/06/2021. Cardiomegaly. Status post anterior lower cervical spine surgical fusion. Diffuse osteopenia. IMPRESSION: Improvement of right apical pneumothorax and bilateral chest and cervical subcutaneous em physema Persistent diffuse right lung and left lower lung infiltrates Reviewed, dictated and finalized at location A. IMPRESSION: Improvement of right apical pneumothorax and bilateral chest and ce rvical subcutaneous emphysema Persistent diffuse right lung and left lower lung infiltrates
--- NOTE | ~2021-02-20 | XR_ITS ---
EXAMINATION: XR chest 1V portable INDICATION: Shortness of breath, COVID 19 TECHNIQUE: Portable AP chest at 0515 hours COMPARISON: 02/27/2021 FINDINGS: A left subclavian Port-A-Cath ends with its tip in the distal superior vena cava. There are diffuse interstitial and airspace opacities with worsening in the right mid and lower lung zones. No pleural effusion or pneumothorax. Pneumomediastinum has developed. There is also is gas in the neck and right supraclavicular fossa. The heart size is normal. A partially imaged right internal ureteral stent is noted. There is osteoarthritis of the shoulders. Changes of fusion procedure are noted in t he cervical spine. IMPRESSION: 1. Diffuse lung disease with interval worsening in the right mid and lower lung zones, consistent wit h pneumonia and/or pulmonary edema and/or acute respiratory distress syndrome (ARDS). 2. Interval development of pneumomediastinum and subcutaneous gas in the neck and right supraclavicul ar fossa, possibly related to barotrauma. These findings were discussed with THERESA Harley in the ICU at 0822 hours on 03/03/2021. Reviewed, dictated and finalized at location A. IMPRESSION: 1. Diffuse lung disease with interval worsening in the right mid and lower lung zones, consistent with pneumonia and/or pulmonary edema and/or acute respirato ry distress syndrome (ARDS). 2. Interval development of pneumomediastinum and subcutaneous gas in the neck a nd right supraclavicular fossa, possibly related to barotrauma. These findings were discussed with THERESA Harley in the ICU at 0822 hours on 2020.
--- NOTE | ~2021-02-20 | XR_ITS ---
EXAMINATION: XR abdomen NG/feed tube insert, XR chest ET placement EXAM DATE: 03/04/2021 10:01 INDICATION: Orogastric tube placement. ET tube placement. TECHNIQUE: Frontal projection(s) of the abdomen for interpretation. Frontal projection of the chest. Correlation was made with chest x-ray earlier same date. FINDINGS: Feeding tube tip and side-port project over gastric bubble, expected position. Endotrachea l tube is in position. There is a left-sided portacatheter. Left-sided nephrostomy tube or ureteral stent. Increase in amount of right axillary, right-sided neck subcutaneous emphysema, and probably pneumomed iastinum. Development of small amount of left axillary pneumomediastinum. Moderate amount of patchy b ilateral acute airspace disease. Moderate hyperinflation. Cardiomediastinal silhouette is normal. No pneumothorax identified. No sizable pleural effusion. Cervical fusion hardware. There are bony degene rative changes. IMPRESSION: 1. ET, OG tubes in position. 2. Progression in pneumomediastinum, right neck and axillary subcutaneous gas. 3. Moderate amount of pneumonia unchanged. 4. Moderate hyperinflation. Reviewed, dictated and finalized at location B. IMPRESSION: 1. ET, OG tubes in position. 2. Progression in pneumomediastinum, right neck and axillary subcutaneous gas. 3. Moderate amount of pneumonia unchanged. 4. Moderate hyperinflation.
--- NOTE | ~2021-02-20 | CT_ITS ---
EXAMINATION: CT chest abdomen pelvis wo con DATE: 02/24/2021 11:31 INDICATION: Pneumonia. TECHNIQUE: Computed tomography (CT) of the chest, abdomen, and pelvis was performed without intraveno us contrast. Automated exposure control and iterative reconstruction technique were employed. The dos e-length product was 282.63 mGy-cm. COMPARISON: PET/CT 06/11/2020 FINDINGS: CHEST CT: There are groundglass opacities involving all lobes with a posterior and lower lung predominance. The re are dependent airspace opacities in the upper and lower lobes. There is mild bronchiectasis in the inferior lungs. There are trace pleural effusions. The heart size is normal. There are coronary carolann ry calcifications. The calcifications of the aortic valve. No pericardial effusion. There is a left s ubclavian port with tip at superior cavoatrial junction. There is mild thoracic spondylosis. There ar e changes of anterior fusion procedure in cervical spine. ABDOMEN/PELVIS CT: There are cysts in the liver measuring up to 14 mm. There is a gallstone in the gallbladder, which is normal in size. The spleen, adrenal glands, and right kidney are normal. There is a 2.7 cm cystic ma ss with peripheral calcifications in the tail of the pancreas. There is mild atrophy of left kidney. There is mild left hydronephrosis. Left hydroureter is noted. There is a left internal ureteral sten t in expected position. There are surgical clips in the cervix. There is diverticulosis of the colon without evidence of diverticulitis. There are no dilated loops of bowel. The appendix is not visualiz ed. The bladder is distended. A Lee catheter is noted. There is extensive fat stranding through the small bowel mesentery. There is no free intraperitoneal fluid. There is severe lumbar spondylosis. IMPRESSION: 1. Diffuse lung disease, consistent with pneumonia. 2. Stable extensive fat stranding in the small bowel mesentery, consistent with treated lymphoma. 3. 2.7 cm cystic mass of the pancreas, stable from 09/27/17. The differential diagnosis includes pseud ocyst, intraductal papillary mucinous neoplasm (IPMN), mucinous cystic neoplasm (MCN), serous cystade noma, and neuroendocrine tumor. 4. Mild left hydronephrosis and hydroureter with internal ureteral stent in expected position. 5. Distended bladder with Lee catheter in expected position. Reviewed, dictated and finalized at location A. IMPRESSION: 1. Diffuse lung disease, consistent with pneumonia. 2. Stable extensive fat stranding in the small bowel mesentery, consistent with treated lymphoma. 3. 2.7 cm cystic mass of the pancreas, stable from 09/27/17. The differential di agnosis includes pseudocyst, intraductal papillary mucinous neoplasm (IPMN), mu cinous cystic neoplasm (MCN), serous cystadenoma, and neuroendocrine tumor. 4. Mild left hydronephrosis and hydroureter with internal ureteral stent in exp ected position. 5. Distended bladder with Lee catheter in expected position.
--- NOTE | ~2021-02-20 | XR_ITS ---
EXAMINATION: XR chest 1V portable DATE: 03/08/2021 01:45 INDICATION: Acute respiratory failure. TECHNIQUE: A single frontal view of the chest was obtained. COMPARISON: Chest single view 03/07/2021, chest CT 02/24/2021 FINDINGS: The patient is rotated to her right. There are airspace opacities in all lung zones with re lative sparing of the lung apices. No pleural effusion or pneumothorax. The heart size is normal. The endotracheal tube tip is 14 mm above the farhad. There is a left subclavian port with tip at superio r cavoatrial junction. The nasogastric tube tip in the stomach. There are changes of anterior fusion procedure in cervical spine. Again seen is chest wall gas, right worse than left. Pneumomediastinum i s no longer identified. IMPRESSION: 1. Stable diffuse lung disease, consistent with pneumonia versus acute respiratory distress syndrome (ARDS). 2. Persistent chest wall subcutaneous emphysema. Reviewed, dictated and finalized at location A. IMPRESSION: 1. Stable diffuse lung disease, consistent with pneumonia versus acute respirat ory distress syndrome (ARDS). 2. Persistent chest wall subcutaneous emphysema.
--- NOTE | ~2021-02-20 | US_ITS ---
EXAMINATION: US venous doppler [facility] DATE: 02/24/2021 13:58 INDICATION: Shortness of breath TECHNIQUE: Gordon scale images without and with compression and Doppler images of the bilateral lower e xtremity veins were obtained. COMPARISON: None FINDINGS: The right common femoral vein, profunda femoral vein, femoral vein, popliteal vein, peroneal trunk, p osterior tibial veins, and greater saphenous vein are patent. The left common femoral vein, profunda femoral vein, femoral vein, popliteal vein, peroneal trunk, po sterior tibial veins, and greater saphenous vein are patent. IMPRESSION: 1. Patent bilateral lower extremity veins. No evidence of deep venous thrombosis. Reviewed, dictated and finalized at location B. IMPRESSION: 1. Patent bilateral lower extremity veins. No evidence of deep venous thrombosi s.
--- NOTE | ~2021-02-20 | XR_ITS ---
XR chest 1V portable DATE: 03/04/2021 05:46 INDICATION: Pneumomediastinum TECHNIQUE: Portable AP chest on 03/04/2021 at 0525 hours COMPARISON: 03/03/2021 portable AP chest at 0515 hours Portable AP chest on 02/27/2021 0516 hours FINDINGS: Left Port-A-Cath catheter tip is situated at the superior cavoatrial junction. Again noted are diffuse interstitial infiltrates, relatively sparing the apices, greater in the lower lung zones, relatively stable since 03/03/2021. Diminished pneumomediastinum. New subcutaneous emphysema along the right lateral chest wall, with per sistent subcutaneous emphysema extending into the right cervical region. No apparent pneumothorax. Status post lower anterior cervical spine surgical fusion. Diffuse osteopenia. Osteoarthritic change at the glenohumeral joints, resection of the right lateral clavicle, right greater than left rotator cuff cuff atrophy. IMPRESSION: Minimal interval change since 03/03/2021 Reviewed, dictated and finalized at location A.
--- NOTE | ~2021-02-20 | XR_ITS ---
XR chest 1V portable DATE: 03/05/2021 05:32 INDICATION: Acute respiratory failure TECHNIQUE: Portable AP chest on 03/05/2021 at 0514 hours COMPARISON: 03/04/2021 portable AP chest FINDINGS: There is increased subcutaneous emphysema along the chest wall and supraclavicular areas ex tending into the cervical regions since 03/04/2021, right greater than left. Pneumomediastinum is again noted. Diffuse bilateral pulmonary infiltrates are noted, right greater than left, relatively sparing the le ft apical area. Minimal right apical pneumothorax. No left pneumothorax is evident. ET tube 1.9 cm above farhad. NG tube in gastric fundus. Left Port-A-Cath catheter tip situated near superior cavoatrial junction. Status post anterior cervical spine surgical fusion. Diffuse osteopenia. Osteoarthritic change at the glenohumeral joints, right rotator cuff atrophy. IMPRESSION: Minimal right apical pneumothorax Increased subcutaneous emphysema of the chest and cervical soft tissues, right greater than left Extensive bilateral pulmonary infiltrates, right greater than left, relatively stable since 07/05/2021 ET tube 1.9 cm above farhad NG tube in gastric fundus Left Port-A-Cath Reviewed, dictated and finalized at location A.
--- NOTE | ~2021-02-20 | XR_ITS ---
EXAMINATION: XR chest 1V portable DATE: 02/24/2021 05:37 INDICATION: Pneumonia with bilateral pulmonary infiltrates. TECHNIQUE: frontal view of the chest was obtained. COMPARISON: Chest radiograph dated 02/23/2021 FINDINGS: Left subclavian central venous port catheter with distal tip at the caudal superior vena cava. Increa sed interstitial pattern in the perihilar regions and bilateral lower lung zones consistent with mild pulmonary edema. Additional mild airspace opacities in the bilateral lower lung zones. No pleural ef fusion or pneumothorax. The cardiomediastinal silhouette is normal. This loop of a left percutaneous nephrostomy tube projects over the left upper quadrant. Partially visualized plate and screw fixation for lower cervical anterior spinal fusion. Postoperative change of prior distal right clavicle resec tion. IMPRESSION: 1. No significant interval change in mild bilateral interstitial pulmonary edema or focal airspace op acities in the bilateral lower lung zones which could represent cysts atelectasis and/or pneumonia. Reviewed, dictated and finalized at location A. IMPRESSION: 1. No significant interval change in mild bilateral interstitial pulmonary zhao a or focal airspace opacities in the bilateral lower lung zones which could rep resent cysts atelectasis and/or pneumonia.
--- NOTE | ~2021-02-20 | XR_ITS ---
XR chest 1V portable DATE: 03/07/2021 05:35 INDICATION: Acute respiratory failure. Covid 19. TECHNIQUE: Portable upright AP chest on 03/17/2021 at 0529 hours COMPARISON: 03/06/2021 portable AP chest FINDINGS: There is extensive subcutaneous emphysema of the right chest wall and bilateral cervical ar eas as well as prominent pneumomediastinum, all increased since 03/06/2021. No apparent pneumothorax is noted. There are extensive diffuse bilateral pulmonary infiltrates, right greater than left, increased since 03/06/2021. ET tube is in satisfactory position approximately 2.4 cm above farhad. NG tube in stomach. Left Port-A-Cath catheter tip is situated near the superior cavoatrial junction. Status post anterior cervical spine surgical fusion. Diffuse osteopenia. Right rotator cuff atrophy. IMPRESSION: Extensive increased bilateral pulmonary infiltrates, increased pneumomediastinum and incr eased subcutaneous emphysema of the right chest and bilateral cervical area since 03/06/2021 Reviewed, dictated and finalized at location A. IMPRESSION: Extensive increased bilateral pulmonary infiltrates, increased pneu momediastinum and increased subcutaneous emphysema of the right chest and bilat eral cervical area since 03/06/2021
--- NOTE | ~2021-02-20 | XR_ITS ---
EXAMINATION: XR chest 1V portable DATE: 02/27/2021 05:20 INDICATION: Respiratory failure TECHNIQUE: frontal view of the chest was obtained. COMPARISON: Chest radiograph and CT dated 02/24/2021 FINDINGS: No significant interval change in diffuse groundglass opacities and increased interstitial pattern th roughout both lungs relatively sparing the right apex and left upper lung zone. No pneumothorax. Very small right pleural effusion. The cardiomediastinal silhouette is normal. Left subclavian central venous port catheter with distal tip at the caudal superior vena cava. Loop o f a likely left internal ureteral stent is seen in the left upper quadrant. Prior distal right clavic le resection. Plate-screw fixation for anterior spinal fusion at the lower cervical spine. IMPRESSION: 1. No significant change in diffuse bilateral lung disease which could represent pulmonary edema and/ or pneumonia. Reviewed, dictated and finalized at location A. IMPRESSION: 1. No significant change in diffuse bilateral lung disease which could represen t pulmonary edema and/or pneumonia.
--- NOTE | ~2021-02-20 | US_ITS ---
US renal BI 02/21/2021 10:33 Procedure: Realtime transabdominal ultrasound of the kidneys and bladder. Indication: History of nephrostomy tube. Acute renal insufficiency. Comparison: CT dated 10/02/2019 Findings: Renal echotexture is normal bilaterally without hydronephrosis, contour deforming mass or r enal calculus. There is an 8 mm right renal cyst. The right kidney measures 10.3 cm and left kidney m easures 8.7 cm. Bladder within normal limits. Impression: 1: Right renal cyst measuring 8 mm. Reviewed, dictated and finalized at location B. Impression: 1: Right renal cyst measuring 8 mm.
--- NOTE | ~2021-02-20 | XR_ITS ---
XR chest 1V portable 02/20/2021 10:39 Indication: Cough Procedure: AP portable chest Comparison: 01/03/2018 Findings: Portacatheter tip in the SVC. Heart size is normal for technique. Patchy bilateral infiltra song. No pleural effusion or pneumothorax. There are degenerative changes of the shoulders. Osteopenia . Impression: 1: Patchy bilateral infiltrates, compatible with pneumonia. Reviewed, dictated and finalized at location B. Impression: 1: Patchy bilateral infiltrates, compatible with pneumonia.
--- NOTE | ~2021-02-20 | XR_ITS ---
XR chest 1V portable 02/23/2021 10:01 Indication: CHF and shortness of breath Procedure: AP portable chest Comparison: Comparison to multiple prior studies sequentially, with oldest reviewed study dated 10/13. Findings: Heart size normal. Portacatheter tip in the SVC. Persistent extensive bilateral airspace di sease predominantly of the mid and lower lung zones. No possible small effusion. No pneumothorax. Impression: 1: No significant change to bilateral infiltrates of the mid and lower lung zones, likely edema. Mychal ot exclude pneumonia. Reviewed, dictated and finalized at location A. Impression: 1: No significant change to bilateral infiltrates of the mid and lower lung zon es, likely edema. Cannot exclude pneumonia.
--- NOTE | ~2021-02-20 | XR_ITS ---
EXAMINATION: XR chest 1V portable INDICATION: Shortness of breath and cough TECHNIQUE: Portable AP chest at 0832 hours COMPARISON: 02/20/2021 FINDINGS: A left subclavian Port-A-Cath ends with its tip in the distal superior vena cava. There are stable patchy opacities of the lung bases and right midlung zone without significant change. No pleu ral effusion or pneumothorax is identified. The cardiomediastinal silhouette is stable. There are rachel nges of fusion procedure in the lower cervical spine. Osteoarthritis is noted in the shoulders. IMPRESSION: 1. Stable patchy opacities of the lung bases and right midlung zone, consistent with atelectasis vers us pneumonia. Reviewed, dictated and finalized at location A. IMPRESSION: 1. Stable patchy opacities of the lung bases and right midlung zone, consistent with atelectasis versus pneumonia.
[2021-02-20 09:45] VITALS: BP 108/62; PULSE 87; RESP 24; TEMP 37.5; O2SAT 92
--- NOTE | 2021-02-20 10:22 | ED.GENADULT ---
HPI - General Adult General Chief complaint: Weakness Stated complaint: weak Time Seen by Provider: 02/20/21 10:12 Source: patient, family and RN notes reviewed Mode of arrival: ambulatory Limitations: no limitations History of Present Illness HPI narrative: 80 years old white female came from home complaining of chills, weakness, not feeling well for the last few days. Patient is status post left stent placement at [facility] 1 week ago, started on Levaquin 7 days ago, stopped after 4 days because she did not feel well. Did not call her urologist. Patient denies any nausea, vomiting or pain. Her temperature is 99 Fahrenheit. Patient complaining of sinus drainage and slight intermittent cough for weeks. Been vaccinated for COVID-19 months ago. Currently feeling weak. Related Data Home Medications Medication Instructions Recorded Confirmed ascorbic acid (vitamin C) 500 mg PO DAILY 06/19/19 12/19/20 vitamin B complex 1 cap PO DAILY 06/19/19 12/19/20 omega-3 417 mg-dha 120 mg-epa-276 cap PO 12/19/20 12/19/20 mg-fish oil 600 mg-tumeric capsule cholecalciferol (vitamin D3) 50 50 mcg PO DAILY 12/30/20 mcg (2,000 unit) capsule Allergies Allergy/AdvReac Type Severity Reaction Status Date / Time Sbqfyfj-Mag-Uvp Reductase AdvReac Unknown Muscle pain Verified 02/20/21 09:53 Inhibitor Review of Systems Review of Systems: Narrative: CONSTITUTIONAL: Denies fever, chills, or sweats. EYES: Denies visual changes, redness, or discharge. ENT: Denies rhinorrhea, congestion, sore throat, or otalgia. CARDIOVASCULAR: Denies chest pain, palpitations, or edema. RESPIRATORY: Denies cough or dyspnea. GASTROINTESTINAL: Denies abdominal pain, nausea, vomiting, or diarrhea. GENITOURINARY: Denies dysuria or hematuria. SKIN: Denies rash or itching. MUSCULOSKELETAL: Denies back pain, joint pain, or myalgia. NEUROLOGIC: Denies headache, numbness, or weakness. PSYCHIATRIC: Denies anxiety or depression. [facility] Past Medical History Medical History Anxiety (~05/2018) HTN (hypertension) Hyperlipidemia Non-Hodgkins lymphoma (~09/2017) Postmenopausal bleeding Surgical History Surgical History History of appendectomy (~1979) History of back surgery (~1974) History of carpal tunnel release (~1999) History of colonoscopy with polypectomy (~02/14/15) Polyp removed, Dr Alvarado, repeat in 5 yrs. History of hemorrhoidectomy (~1959) History of neck surgery (~2001) Family History Family History Other Cerebrovascular accident Diabetes mellitus Family history of coronary artery disease Social History Social History Smoking status: Never smoker Second hand tobacco smoke exposure: No Alcohol intake: never Substance use: never Additional living arrangements comments: SON WITH PREVIOUS HEAD INJURY- JAMES Gender identity (if verbalized by the patient): Female Spiritual care concerns: No Exam Narrative: Exam Narrative: General appearance: Well-developed, well-nourished Skin: Normal color Head: Normocephalic, nontraumatic Eyes: Clear conjunctiva ENT: Oropharynx normal, ears normal, nose normal Neck: Supple, nontender Chest and respiratory: Airway patent, no respiratory distress, no accessory muscle use Heart: Regular rate/rhythm Abdomen: Soft, nontender, no organomegaly, quiet bowel sounds Vascular: Normal peripheral pulses, normal capillary refill. Musculoskeletal: Normal range of motion, nontender back Neurologic: Alert and oriented ?3, HIDE SALTER is normal as tested, no gross motor deficit
[2021-02-20 10:41] LABS: Hematocrit 30.1 % (37.0-47.0); Hemoglobin 9.9 g/dL (12.0-15.0); Immature Granulocyte Absolute 0.01 K/mm3 (0.00-0.031); Immature Granulocyte Percent A 0.2 % (0-0.5); Lymphocytes Absolute Auto 0.59 K/mm3 (0.9-3.2); Lymphocytes Percent Auto 14.1 % (18.3-44.2); Mean Corpuscular HGB Conc 32.9 g/dl (32-36); Mean Corpuscular Hemoglobin 29.9 pg (26-34); Mean Corpuscular Volume 90.9 fl (80-100); Mean Platelet Volume 8.4 fl (7.4-10.4); Monocytes Absolute Auto 0.2 K/mm3 (0.1-0.6); Monocytes Percent Auto 4.8 % (2.6-8.5); Neutrophils Absolute Auto 3.4 K/mm3 (1.3-6.7); Neutrophils Percent Auto 80.9 % (45.5-73.1); Platelet Count Result 162 k/mm3 (150-375); Red Blood Count 3.31 M/mm3 (4.2-5.4); Red Cell Distribution Width 12.5 % (11.5-14.5); White Blood Count 4.2 K/mm3 (4.5-10.0)
[2021-02-20 10:51] LABS: Alanine Aminotransferase 18 U/L (4-35); Albumin Level 3.8 g/dL (3.5-5.1); Alkaline Phosphatase 59 U/L (38-126); Anion Gap 9 mmol/L (8-16); Aspartate Amino Transferase 62 U/L (14-36); Bilirubin,Total 0.4 mg/dL (0.2-1.3); Blood Urea Nitrogen 30 mg/dL (7-17); Calcium 8.8 mg/dL (8.4-10.2); Carbon Dioxide 23 mmol/L (22-30); Chloride 106 mmol/L (98-107); Estimated CRCL calculation 16 ml/min; Estimated Glomerular Filt Rate 26; Glucose 88 mg/dL (65-105); Potassium 4.5 mmol/L (3.4-5.0); Sodium 138 mmol/L (137-145)
[2021-02-20 11:44] LABS: Lactic Acid Reflex 0.9 mmol/L (0.7-2.1)
[2021-02-20 11:46] LABS: Add Urine Microscopic? YES; Appearance Urine Cloudy (Clear); Bacteria Urine 1+ /hpf; Bilirubin Urine Negative (Negative); Blood Urine 1+ (Negative); Color Urine Amber (Yellow); Glucose Urine UA Negative (Negative); Ketones Urine Negative (Negative); Leukocyte Esterase Ur 2+ LEU/UL (Negative); Mucus Urine Few /lpf; Nitrate Urine Negative (Negative); Protein Urine 2+ mg/dL (Negative); Specific Grav Ur 1.016 (1.001-1.035); Squamous Epithelial Cell Urine Occasional /hpf (Few); Urobilinogen Urine Negative mg/dL (<2.0); WBC Clumps Urine Present /HPF; WBC Urine >75 /hpf
[2021-02-20] MEDS: SODIUM CHLORIDE 0.9% IV 1,000 ML 999 ML IV CONT (13:05)
[2021-02-20 13:12] VITALS: BP 104/72; PULSE 99; RESP 24; O2SAT 95
--- NOTE | 2021-02-20 15:05 | PM.IMHP ---
H&P: HPI History of Present Illness Date/Time: 02/20/21 15:05 Chief Complaint: Generalized weakness. Narrative: This is a very pleasant 80-year-old female with hypertension, history of non-Hodgkin lymphoma in 2018, and cervical cancer in which she recently completed chemoradiation who presented to the emergency department earlier today for evaluation of generalized weakness. She had problems with left-sided hydronephrosis related to tumor burden and had a nephrostomy tube in for some time though that was recently removed and a ureteral stent was placed on 01/23/[address] Vega at [facility]. The procedure was same day and she was discharged home with levofloxacin due to an abnormal urinalysis. She took 3 days of the antibiotic however stopped it early ?because it was making me feel sick because it was too strong.? She believes the antibiotics were making her weak though around the same time she developed sinus congestion, cough productive of clear phlegm, and a marked decrease in appetite. As such she has not been eating or drinking much and she feels dehydrated, weak, and in fact has been walking with a cane. Today her urinalysis remains abnormal however she has no symptoms of UTI, specifically denying dysuria, hematuria, urgency, hesitancy, and frequency. She does look dehydrated with an increasing creatinine from baseline. Chest x-ray showed patchy bilateral infiltrates compatible with pneumonia and she is being admitted in this setting. She received both shots in the COVID vaccination series in November 2020. She denies sick contacts. No dysphagia or concerns for aspiration. She has not had a fever to her knowledge in she denies chills and sweats although does report that the room is quite cold. No nausea, vomiting, or diarrhea. Review of Systems Review of Systems: Narrative: Twelve systems were reviewed with pertinent positives and negatives as per HPI. No syncope or near syncope. No otalgia or odynophagia. She denies significant sinus congestion at this time. Endorses mild postnasal drip. No chest pain or pleuritic pain. No shortness of breath, orthopnea, or PND. She denies hemoptysis. No nausea, vomiting, or diarrhea. Urine is perhaps a bit darker than usual though she has not noticed a decrease in urine output. Weight has remained stable. Except as documented, all other systems were reviewed and are negative. PMFSH Past Medical History Medical History (Updated 02/20/21 @ 18:31 by Autumn Gross PA-C) Anxiety Arthritis History of kidney stones Hyperlipidemia Hypertension Non-Hodgkins lymphoma (09/2017) Status post Rituxan, vincristine, doxorubicin, Cytoxan. 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 Clinically in remission as of 12/23/2020 with PET-CT showing no evidence of recurrent disease. Patient of Dr. Des Peoples at [facility] in [place]. Surgical History Surgical History (Updated 02/20/21 @ 18:17 by Autumn Gross PA-C) History of appendectomy (1979) History of back surgery (1974) History of biopsy of bladder (05/2020) History of carpal tunnel release (1999) History of colonoscopy with polypectomy (02/14/15) Per Dr. Alvarado. Polyp removed, repeat in 5 yrs. History of hemorrhoidectomy (1959) History of neck surgery (2001) Status post cataract extraction of both eyes with insertion of intraocular lens Family History Family History Sibling Chronic obstructive pulmonary disease Mother Congestive heart failure Social History Social History (Updated 02/20/21 @ 18:17 by Autumn Gross PA-C) Social History: Surrogate decision maker: Jorje Donnelly (nieces). Code status: Full code. Smoking status: Never smoker Second hand tobacco smoke exposure: No Alcohol intake: never Substance use: never Substance use t
[2021-02-20] MEDS: SODIUM CHLORIDE 0.9% IV 1,000 ML 125 ML IV CONT (15:45)
--- NOTE | 2021-02-20 15:52 | PC.NURSE ---
This patient, Sylvia Donnelly, was admitted to 2 Medical Room 241-01. Patient/family oriented to hospital policies and general routines including ID bracelet, bed and alarms, visiting hours, pain management, procedures, bathroom and other care routines, personal items, smoking policy, room service/diet, and visiting hours. Information on how to activate the Rapid Response Team has been discussed. Patient/Family are encouraged to report perceived risks to care and to ask questions if they do not understand what they are told or what they should do.
[2021-02-20 18:39] LABS: Lactic Acid Reflex 0.8 mmol/L (0.7-2.1)
[2021-02-20 18:42] LABS: INR 0.9
[2021-02-20 18:43] LABS: Partial Thromboplastin Time 37.1 SECONDS (22.3-36.8)
[2021-02-20 19:21] LABS: Immature Reticulocyte Fraction 10.9 % (3.0-15.9); Reticulocyte Percent 0.43 % (0.7-4.3); Reticulocytes Absolute 0.01 B/L (32.2-175.7)
[2021-02-20] MEDS: guaiFENesin 12 HR 600 MG TABCR PO (20:17)
[2021-02-20 20:40] LABS: Glucose Point of Care 73 mg/dl (65-105)
[2021-02-20 20:42] LABS: Folic Acid > 20.0 ng/mL (2.76->20)
[2021-02-20 22:00] VITALS: BP 114/50; PULSE 62; RESP 20; TEMP 36.3; O2SAT 92
[2021-02-20 22:20] LABS: Iron 14 ug/dL (37-170)
[2021-02-20 22:35] LABS: Percent Iron Saturation 7 % (20-50)
[2021-02-20 22:54] VITALS: BMI 21.9
[2021-02-21] VITALS (16 sets, daily range): BP systolic 100–116; BP diastolic 58–67; PULSE 94–102; RESP 16–22; TEMP 36.3–37.8; O2SAT 90–96; BMI 21.9
--- NOTE | 2021-02-21 | ECHO_ITS ---
Patient Info Name: Sylvia Donnelly Age: 80 years : 1940 Gender: Female Ht: 61 in Wt: 115 lbs BSA: 1.50 m2 HR: 77 bpm BP: 116 / 64 mmHg Technical Quality: Good Exam Date: 02/21/2021 11:31 AM Exam Location: [facility] Pulmonary Exam Room: 241 Patient Status: Inpatient Admit Date: 02/20/2021 Staff Ordering Physician: Albertina Steen PA-C Pbx Mechanic: Soraida Summers RDCS Attending Provider: Albertina Steen PA-C Referring Physician: Enio DUGAN; Exam Type: CA echo doppler color flow Study Info Indications - fluid overload Complete two-dimensional, color flow and Doppler transthoracic echocardiogram is performed. Summary 1. Complete two-dimensional, color flow and Doppler transthoracic echocardiogram is performed. 2. Left ventricular chamber dimension is normal. 3. Left ventricular systolic function is normal, estimated at 60-65%. 4. The left ventricular diastolic function is grade I diastolic dysfunction. 5. E/e' 13 is mildly elevated. 6. Left atrial chamber dimension is moderately enlarged. 7. Right atrial chamber dimension is mildly enlarged. 8. There is moderate aortic valve sclerosis. 9. There is mild to moderate mitral valve regurgitation. 10. There is trace tricuspid valve regurgitation. 11. No pulmonary hypertension, estimated pulmonary arterial systolic pressure is 23 mmHg. Left Ventricle E/e' 13 is mildly elevated. Left ventricular chamber dimension is normal. Left ventricular systolic function is normal, estimated at 60-65%. The left ventricular diastolic function is grade I diastolic dysfunction. Right Ventricle Right ventricular chamber dimension is normal. Right ventricular systolic function is normal. Left Atria Left atrial chamber dimension is moderately enlarged. Right Atria Right atrial chamber dimension is mildly enlarged. Aortic Valve The aortic valve is trileaflet. There is moderate aortic valve sclerosis. There is no aortic valve stenosis. There is no aortic valve regurgitation. Pulmonic Valve There is no pulmonic regurgitation. Mitral Valve There is no mitral valve stenosis. There is mild to moderate mitral valve regurgitation. Tricuspid Valve There is trace tricuspid valve regurgitation. No pulmonary hypertension, estimated pulmonary arterial systolic pressure is 23 mmHg. Pericardium/Pleural There is no pericardial effusion. Inferior Vena Cava Normal inferior vena cava with >50% collapse upon inspiration consistent with normal right atrial pressure, 5 mmHg. Aorta The aortic root size at the sinus of Valsalva is not well visualized. Left Ventricular Outflow Tract Name Value Normal LVOT 2D LVOT Diameter 2.0 cm LVOT Doppler LVOT Peak Gradient 5 mmHg LVOT Mean Gradient 2 mmHg LVOT VTI 24 cm LVOT VTI/AV VTI Ratio 0.9 LVOT Stroke Volume 74 ml LVOT CO 13.1 l/min LVOT CI 8.7 l/min/m2 Pulmonic Valve ------
[2021-02-21] MEDS: SODIUM CHLORIDE 0.9% IV 1,000 ML 75 ML IV CONT (04:46)
[2021-02-21 06:00] LABS: Hematocrit 28.4 % (37.0-47.0); Hemoglobin 9.3 g/dL (12.0-15.0); Mean Corpuscular HGB Conc 32.7 g/dl (32-36); Mean Corpuscular Hemoglobin 30.2 pg (26-34); Mean Corpuscular Volume 92.2 fl (80-100); Platelet Count Result 157 k/mm3 (150-375); Red Blood Count 3.08 M/mm3 (4.2-5.4); Red Cell Distribution Width 12.6 % (11.5-14.5); White Blood Count 3.6 K/mm3 (4.5-10.0)
[2021-02-21] MEDS: ALBUTEROL SULFATE (*SP) AEROSOL 1 PUFF 2 PUFF INHALATION (06:12)
[2021-02-21 06:38] LABS: Anion Gap 7 mmol/L (8-16); Blood Urea Nitrogen 28 mg/dL (7-17); Calcium 8.4 mg/dL (8.4-10.2); Carbon Dioxide 20 mmol/L (22-30); Chloride 111 mmol/L (98-107); Estimated CRCL calculation 21 ml/min; Estimated Glomerular Filt Rate 33; Glucose 70 mg/dL (65-105); Magnesium 1.9 mg/dL (1.6-2.3); Potassium 4.6 mmol/L (3.4-5.0); Sodium 138 mmol/L (137-145)
[2021-02-21] MEDS: guaiFENesin 12 HR 600 MG TABCR PO ×2 (08:12→22:45)
[2021-02-21] MEDS: ACETAMINOPHEN 325 MG TABLET 650 MG PO (08:12)
[2021-02-21] MEDS: ENOXAPARIN 40 MG/0.4 ML SYRINGE SUB-Q (08:13)
[2021-02-21] MEDS: ASCORBIC ACID 500 MG TABLET PO (08:13)
[2021-02-21] MEDS: VITAMIN B COMPLEX CAPSULE 1 CAP PO (08:13)
[2021-02-21] MEDS: atenoloL 25 MG TABLET PO (08:13)
[2021-02-21] MEDS: CHOLECALCIFEROL 1,000 UNITS TABLET 2000 UNITS PO (08:13)
--- NOTE | 2021-02-21 08:37 | P.PNIM_ITS ---
Progress Note: A&P Assessment and Plan (1) Acute respiratory failure with hypoxia: Code(s): J96.01 - Acute respiratory failure with hypoxia Status: Acute Assessment and Plan: Overnight the patient became hypoxic and is now requiring 1 L of oxygen. * Stat portable chest x-ray will be obtained. * On examination she has inspiratory crackles so fluids will be discontinued at this time. * Continue IV antibiotics for treatment of pneumonia. * Ordered DuoNeb treatments q.6 hours. * Incentive spirometer and Cornet valve ordered Continue monitoring respiratory status . (2) Bilateral pneumonia: Code(s): J18.9 - Pneumonia, unspecified organism Status: Acute Assessment and Plan: Community-acquired pneumonia. Patient has completed the COVID vaccination series. * She has been started on azithromycin and ceftriaxone. * Mucinex and Cornet ordered to help mobilize secretions. * Sputum culture pending * Blood cultures pending * Pending urine antigens. Continue monitoring. (3) Abnormal urinalysis: Code(s): R82.90 - Unspecified abnormal findings in urine Status: Acute Assessment and Plan: No urinary symptoms at this time. She did just have a nephrostomy tube removed by Urology 8 days ago and was supposed to be on 7 days of antibiotics since stent was placed but she only took 3 days due to causing GI upset. * Ceftriaxone should cover any underlying pathogen. * Urine culture pending. Continue monitoring. (4) Leukopenia: Code(s): D72.819 - Decreased white blood cell count, unspecified Status: Acute Assessment and Plan: Could be related to underlying cancer and recent chemo on radiation therapy. Continue monitoring. (5) Elevated serum creatinine: Code(s): R79.89 - Other specified abnormal findings of blood chemistry Status: Acute Assessment and Plan: Likely related to dehydration given poor oral intake. Bladder is not distended thus urinary retention is unlikely. * IV fluids were discontinued due to some shortness of breath this morning. * Creatinine has improved from 1.9-1.5. * Appears patient's baseline creatinine is 1-1.2 from recent labs. * Will obtain a renal ultrasound for further evaluation of her kidneys and to look for any hydronephrosis due to recent nephrostomy tube removal. * Consider Urology consultation Continue monitoring labs and electrolytes. (6) Dehydration: Code(s): E86.0 - Dehydration Status: Acute Assessment and Plan: Discontinue IV fluids due to shortness of breath this morning. (7) Normocytic anemia: Code(s): D64.9 - Anemia, unspecified Status: Acute Assessment and Plan: Normocytic anemia with a hemoglobin of 9.3/hematocrit 28%. * Found to have vitamin B12 deficiency at 222. Will give IM Cyanocobalamin 1000 mcg for 3 days, then PO * Found to have anemia of chronic disease, but with low % saturation at 7%. Will give IV Venofer x3 days, then transition to PO Ferrous Sulftate BID. * NL Folate and TSH levels. Continue monitoring H&H. No signs of acute bleeding at this time. Transfuse as needed. (8) Generalized weakness: Code(s): R53.1 - Weakness
--- NOTE | 2021-02-21 08:37 | PM.IMPN ---
Progress Note: A&P Assessment and Plan (1) Acute respiratory failure with hypoxia: Code(s): J96.01 - Acute respiratory failure with hypoxia Status: Acute Assessment and Plan: Overnight the patient became hypoxic and is now requiring 1 L of oxygen. Stat portable chest x-ray will be obtained. On examination she has inspiratory crackles so fluids will be discontinued at this time. Continue IV antibiotics for treatment of pneumonia. Ordered DuoNeb treatments q.6 hours. Incentive spirometer and Cornet valve ordered Continue monitoring respiratory status . (2) Bilateral pneumonia: Code(s): J18.9 - Pneumonia, unspecified organism Status: Acute Assessment and Plan: Community-acquired pneumonia. Patient has completed the COVID vaccination series. She has been started on azithromycin and ceftriaxone. Mucinex and Cornet ordered to help mobilize secretions. Sputum culture pending Blood cultures pending Pending urine antigens. Continue monitoring. (3) Abnormal urinalysis: Code(s): R82.90 - Unspecified abnormal findings in urine Status: Acute Assessment and Plan: No urinary symptoms at this time. She did just have a nephrostomy tube removed by Urology 8 days ago and was supposed to be on 7 days of antibiotics since stent was placed but she only took 3 days due to causing GI upset. Ceftriaxone should cover any underlying pathogen. Urine culture pending. Continue monitoring. (4) Leukopenia: Code(s): D72.819 - Decreased white blood cell count, unspecified Status: Acute Assessment and Plan: Could be related to underlying cancer and recent chemo on radiation therapy. Continue monitoring. (5) Elevated serum creatinine: Code(s): R79.89 - Other specified abnormal findings of blood chemistry Status: Acute Assessment and Plan: Likely related to dehydration given poor oral intake. Bladder is not distended thus urinary retention is unlikely. IV fluids were discontinued due to some shortness of breath this morning. Creatinine has improved from 1.9-1.5. Appears patient's baseline creatinine is 1-1.2 from recent labs. Will obtain a renal ultrasound for further evaluation of her kidneys and to look for any hydronephrosis due to recent nephrostomy tube removal. Consider Urology consultation Continue monitoring labs and electrolytes. (6) Dehydration: Code(s): E86.0 - Dehydration Status: Acute Assessment and Plan: Discontinue IV fluids due to shortness of breath this morning. (7) Normocytic anemia: Code(s): D64.9 - Anemia, unspecified Status: Acute Assessment and Plan: Normocytic anemia with a hemoglobin of 9.3/hematocrit 28%. Found to have vitamin B12 deficiency at 222. Will give IM Cyanocobalamin 1000 mcg for 3 days, then PO Found to have anemia of chronic disease, but with low % saturation at 7%. Will give IV Venofer x3 days, then transition to PO Ferrous Sulftate BID. NL Folate and TSH levels. Continue monitoring H&H. No signs of acute bleeding at this time. Transfuse as needed. (8) Generalized weakness: Code(s): R53.1 - Weakness Status: Acute Assessment and Plan: Likely related to underlying infection and dehydration. Out of bed for meals. PT/OT consulted. Time Spent With Patient Time with patient: 25 - 35 minutes Subjective Date/time seen: 02/21/21 08:37 Interval history: Woman with a history of hypertension, non-Hodgkin's lymphoma in 2018, cervical cancer a which she
[2021-02-21] MEDS: ALBUTEROL SULFATE NEB 2.5 MG/0.5 ML INH INHALATION ×3 (09:01→19:44)
[2021-02-21] MEDS: IPRATROPIUM BR 0.02% INH SOLN 0.5 MG/2.5 ML VIAL INHALATION ×3 (09:02→19:44)
[2021-02-21] MEDS: CENTRAL LINE FLUSH 10 ML IV PUSH ×2 (11:17→22:45)
[2021-02-21] MEDS: HEPARIN SOD FLUSH 500 UNITS/5 ML SYRINGE IV PUSH (11:17)
[2021-02-21] MEDS: CYANOCOBALAMIN INJ 1,000 MCG/ML VIAL 1000 MCG IM (12:47)
[2021-02-21] MEDS: PANTOPRAZOLE 40 MG TABLET PO (12:47)
[2021-02-21 19:17] LABS: Glucose Point of Care 138 mg/dl (65-105)
[2021-02-22] VITALS (15 sets, daily range): BP systolic 79–101; BP diastolic 41–66; PULSE 72–107; RESP 16–20; TEMP 36.8–36.9; O2SAT 90–93; BMI 24.1
[2021-02-22] MEDS: IPRATROPIUM BR 0.02% INH SOLN 0.5 MG/2.5 ML VIAL INHALATION ×4 (01:31→21:17)
[2021-02-22] MEDS: ALBUTEROL SULFATE NEB 2.5 MG/0.5 ML INH INHALATION ×4 (01:31→21:17)
[2021-02-22] MEDS: CENTRAL LINE FLUSH 10 ML IV PUSH ×3 (05:27→20:37)
[2021-02-22 05:49] LABS: Basophils Percent Auto 0.3 % (0.2-1.2); Hematocrit 26.9 % (37.0-47.0); Immature Granulocyte Absolute 0.02 K/mm3 (0.00-0.031); Immature Granulocyte Percent A 0.6 % (0-0.5); Lymphocytes Absolute Auto 0.45 K/mm3 (0.9-3.2); Lymphocytes Percent Auto 13.2 % (18.3-44.2); Mean Corpuscular HGB Conc 33.5 g/dl (32-36); Mean Corpuscular Hemoglobin 30.3 pg (26-34); Mean Corpuscular Volume 90.6 fl (80-100); Mean Platelet Volume 8.7 fl (7.4-10.4); Monocytes Absolute Auto 0.2 K/mm3 (0.1-0.6); Monocytes Percent Auto 6.7 % (2.6-8.5); Neutrophils Absolute Auto 2.7 K/mm3 (1.3-6.7); Neutrophils Percent Auto 79.2 % (45.5-73.1); Platelet Count Result 150 k/mm3 (150-375); Red Blood Count 2.97 M/mm3 (4.2-5.4); Red Cell Distribution Width 12.6 % (11.5-14.5); White Blood Count 3.4 K/mm3 (4.5-10.0)
[2021-02-22 06:20] LABS: Albumin Level 3.2 g/dL (3.5-5.1); Anion Gap 9 mmol/L (8-16); Blood Urea Nitrogen 19 mg/dL (7-17); CRP 11.7 mg/dL (<1.0); Calcium 8.2 mg/dL (8.4-10.2); Carbon Dioxide 19 mmol/L (22-30); Chloride 112 mmol/L (98-107); Estimated CRCL calculation 22 ml/min; Estimated Glomerular Filt Rate 36; Glucose 88 mg/dL (65-105); Phosphorus 4.1 mg/dL (2.5-4.5); Potassium 3.5 mmol/L (3.4-5.0); Sodium 140 mmol/L (137-145)
[2021-02-22] MEDS: ASCORBIC ACID 500 MG TABLET PO (08:03)
[2021-02-22] MEDS: guaiFENesin 12 HR 600 MG TABCR PO ×2 (08:03→20:37)
[2021-02-22] MEDS: PANTOPRAZOLE 40 MG TABLET PO (08:03)
[2021-02-22] MEDS: ENOXAPARIN 40 MG/0.4 ML SYRINGE SUB-Q (08:03)
[2021-02-22] MEDS: atenoloL 25 MG TABLET PO (08:03)
[2021-02-22] MEDS: CYANOCOBALAMIN INJ 1,000 MCG/ML VIAL 1000 MCG IM (08:04)
[2021-02-22] MEDS: CHOLECALCIFEROL 1,000 UNITS TABLET 2000 UNITS PO (08:04)
[2021-02-22] MEDS: VITAMIN B COMPLEX CAPSULE 1 CAP PO (08:04)
[2021-02-22 08:18] LABS: Lactate Dehydrogenase 695 U/L (313-618)
--- NOTE | 2021-02-22 13:20 | P.PNIM_ITS ---
Progress Note: A&P Assessment and Plan (1) Acute respiratory failure with hypoxia: Code(s): J96.01 - Acute respiratory failure with hypoxia Status: Acute Assessment and Plan: Acute could be secondary to pneumonia versus COVID-19 versus CHF. The patient became hypoxic 02/21/21 and is now requiring oxygen via NC. * Stat portable chest x-ray 02/21/21 showed Stable patchy opacities of the lung bases and right midlung zone, consistent with atelectasis versus pneumonia. * She is being swabbed for COVID due to elevated CRP, ferritin and LDH levels as well as worsening hypoxia were she is now requiring 2 L * Continue IV antibiotics for treatment of pneumonia. * Continue DuoNeb treatments q.6 hours. * Incentive spirometer and Cornet valve ordered * Echocardiogram showed normal 60-65%. Diastolic dysfunction grade 1. Moderate aortic valve sclerosis. No Pulm HTN and normal systolic function. Continue monitoring respiratory status . (2) Bilateral pneumonia: Code(s): J18.9 - Pneumonia, unspecified organism Status: Acute Assessment and Plan: Community-acquired pneumonia. Patient has completed the COVID vaccination series. * Continue on azithromycin and ceftriaxone. * Mucinex and Cornet ordered to help mobilize secretions. * Sputum culture shows lower respiratory tract appearance, pending. * Blood cultures shows no growth at this time , pending. * Pending urine antigens. Continue monitoring. (3) Abnormal urinalysis: Code(s): R82.90 - Unspecified abnormal findings in urine Status: Acute Assessment and Plan: No urinary symptoms at this time. She did just have a nephrostomy tube removed by Urology 8 days ago and was supposed to be on 7 days of antibiotics since stent was placed but she only took 3 days due to causing GI upset. * Ceftriaxone should cover any underlying pathogen. * Urine culture was negative * I did get a renal ultrasound due to her history of nephrostomy tube in recent stent placement to ensure we are not missing some type of underlying infection. Renal ultrasound showed normal bladder, renal cyst, no hydronephrosis. Continue monitoring. (4) Leukopenia: Code(s): D72.819 - Decreased white blood cell count, unspecified Status: Acute Assessment and Plan: Could be related to underlying cancer and recent chemo on radiation therapy. * Could be related to underlying viral infection with COVID-19, pending swab Continue monitoring. (5) Elevated serum creatinine: Code(s): R79.89 - Other specified abnormal findings of blood chemistry Status: Acute Assessment and Plan: Likely related to dehydration given poor oral intake. Bladder is not distended thus urinary retention is unlikely. * IV fluids were discontinued * Creatinine has improved from 1.9-1.4. * Appears patient's baseline creatinine is 1-1.2 from recent labs. * Renal ultrasound was normal Continue monitoring labs and electrolytes. (6) Dehydration: Code(s): E86.0 - Dehydration Status: Acute Assessment and Plan: Discontinue IV fluids due to shortness of breath this morning. (7) Normocytic anemia: Code(s): D64.9 - Anemia, unspecified Status: Acute Assessment and Plan: Normocytic anemia
--- NOTE | 2021-02-22 13:20 | PM.IMPN ---
Progress Note: A&P Assessment and Plan (1) Acute respiratory failure with hypoxia: Code(s): J96.01 - Acute respiratory failure with hypoxia Status: Acute Assessment and Plan: Acute could be secondary to pneumonia versus COVID-19 versus CHF. The patient became hypoxic 02/21/21 and is now requiring oxygen via NC. Stat portable chest x-ray 02/21/21 showed Stable patchy opacities of the lung bases and right midlung zone, consistent with atelectasis versus pneumonia. She is being swabbed for COVID due to elevated CRP, ferritin and LDH levels as well as worsening hypoxia were she is now requiring 2 L Continue IV antibiotics for treatment of pneumonia. Continue DuoNeb treatments q.6 hours. Incentive spirometer and Cornet valve ordered Echocardiogram showed normal 60-65%. Diastolic dysfunction grade 1. Moderate aortic valve sclerosis. No Pulm HTN and normal systolic function. Continue monitoring respiratory status . (2) Bilateral pneumonia: Code(s): J18.9 - Pneumonia, unspecified organism Status: Acute Assessment and Plan: Community-acquired pneumonia. Patient has completed the COVID vaccination series. Continue on azithromycin and ceftriaxone. Mucinex and Cornet ordered to help mobilize secretions. Sputum culture shows lower respiratory tract appearance, pending. Blood cultures shows no growth at this time , pending. Pending urine antigens. Continue monitoring. (3) Abnormal urinalysis: Code(s): R82.90 - Unspecified abnormal findings in urine Status: Acute Assessment and Plan: No urinary symptoms at this time. She did just have a nephrostomy tube removed by Urology 8 days ago and was supposed to be on 7 days of antibiotics since stent was placed but she only took 3 days due to causing GI upset. Ceftriaxone should cover any underlying pathogen. Urine culture was negative I did get a renal ultrasound due to her history of nephrostomy tube in recent stent placement to ensure we are not missing some type of underlying infection. Renal ultrasound showed normal bladder, renal cyst, no hydronephrosis. Continue monitoring. (4) Leukopenia: Code(s): D72.819 - Decreased white blood cell count, unspecified Status: Acute Assessment and Plan: Could be related to underlying cancer and recent chemo on radiation therapy. Could be related to underlying viral infection with COVID-19, pending swab Continue monitoring. (5) Elevated serum creatinine: Code(s): R79.89 - Other specified abnormal findings of blood chemistry Status: Acute Assessment and Plan: Likely related to dehydration given poor oral intake. Bladder is not distended thus urinary retention is unlikely. IV fluids were discontinued Creatinine has improved from 1.9-1.4. Appears patient's baseline creatinine is 1-1.2 from recent labs. Renal ultrasound was normal Continue monitoring labs and electrolytes. (6) Dehydration: Code(s): E86.0 - Dehydration Status: Acute Assessment and Plan: Discontinue IV fluids due to shortness of breath this morning. (7) Normocytic anemia: Code(s): D64.9 - Anemia, unspecified Status: Acute Assessment and Plan: Normocytic anemia with a hemoglobin of 9.0/hematocrit 26%. Found to have vitamin B12 deficiency at 222. Will give IM Cyanocobalamin 1000 mcg for 3 days, then PO Found to have anemia of chronic disease, but with low % saturation at 7%. Will give IV Venofer x3 days, then transition to PO Ferrous Sulfate BID. NL Folate and TSH levels. Continue monitoring H&H. No signs of acute bleeding at this time. Trans
--- NOTE | 2021-02-22 16:32 | PC.NURSE ---
This patient, Sylvia Donnelly, was received from [[facility]] on 02/22/21 at 0900. Patient/family oriented to unit policies and routines
[2021-02-22] MEDS: ACETAMINOPHEN 325 MG TABLET 650 MG PO (17:57)
[2021-02-23] VITALS (30 sets, daily range): BP systolic 74–121; BP diastolic 48–86; PULSE 84–114; RESP 11–31; TEMP 36.6–37.7; O2SAT 81–98
[2021-02-23] MEDS: SODIUM CHLORIDE 0.9% IV 250 ML 999 ML IV CONT (00:56)
[2021-02-23] MEDS: ALBUTEROL SULFATE NEB 2.5 MG/0.5 ML INH INHALATION ×3 (02:40→19:45)
[2021-02-23] MEDS: IPRATROPIUM BR 0.02% INH SOLN 0.5 MG/2.5 ML VIAL INHALATION ×3 (02:40→19:45)
--- NOTE | 2021-02-23 04:15 | PC.NURSE ---
Called Dr. Patel about concern for pt's low BP's at 2252. She called back at 0025 with orders for a 225 ml bolus. Patient has been having diarrhea and we discussed the possibility of dehydration. Patient states that she hasn't noticed any related symptoms.
[2021-02-23] MEDS: ACETAMINOPHEN 325 MG TABLET 650 MG PO ×2 (05:47→12:24)
[2021-02-23] MEDS: CENTRAL LINE FLUSH 10 ML IV PUSH ×3 (05:48→21:06)
[2021-02-23] MEDS: ALBUTEROL SULFATE (*SP) AEROSOL 1 PUFF 2 PUFF INHALATION (06:51)
--- NOTE | 2021-02-23 08:16 | ECG_ITS ---
Measurements Intervals [place] Rate: 99 P: 1 FL: 142 QRS: -24 QRSD: 78 T: 35 QT: 318 QTc: 408 Interpretive Statements SINUS RHYTHM ATRIAL PREMATURE COMPLEXES VOLTAGE CRITERIA FOR LVH BORDERLINE T WAVE ABNORMALITY- HIGH LATERAL LEADS BASELINE ARTIFACT- I, II, AVR BORDERLINE ECG Electronically Signed On 02-23-2021 14:51:18 CDT by Shay Cornell D.O.
[2021-02-23] MEDS: PANTOPRAZOLE 40 MG TABLET PO (08:45)
[2021-02-23] MEDS: SODIUM CHLORIDE 0.9% IV 1,000 ML 75 ML IV CONT ×2 (08:45→18:38)
[2021-02-23] MEDS: CYANOCOBALAMIN INJ 1,000 MCG/ML VIAL 1000 MCG IM (08:45)
[2021-02-23] MEDS: guaiFENesin 12 HR 600 MG TABCR PO ×2 (08:45→21:06)
[2021-02-23] MEDS: CHOLECALCIFEROL 1,000 UNITS TABLET 2000 UNITS PO (08:46)
[2021-02-23] MEDS: atenoloL 25 MG TABLET PO (08:46)
[2021-02-23] MEDS: VITAMIN B COMPLEX CAPSULE 1 CAP PO (08:46)
[2021-02-23] MEDS: ASCORBIC ACID 500 MG TABLET PO (08:46)
[2021-02-23 08:49] LABS: Alveolar/Arterial O2 Gradient 334.2 mmHg; Base Excess ABG -2.5 mEq/l (+/-2.0); Carboxyhemoglobin 0.1 % THb (0-2.0); Fractional Inspired Oxygen 52 %; HCO3 ABG 21.1 mEq/l (22.0-26.0); Methemoglobin ABG 0.3 %THb (0-1.5); Oxygen Content ABG 12.2 %vol (16.0-22.0); Oxyhemoglobin 85.7 % THb (90.0-100.0); PCO2 ABG 31.9 mmHg (35.0-45.0); PO2 FiO2 Ratio Arterial Blood 0.93 %; Reduced Hemoglobin 13.9 %THb (0-5.0); Total Hemoglobin 10.1 g/dL (12.0-18.0); pH ABG 7.438 (7.350-7.450)
[2021-02-23 08:51] LABS: Device NASAL CANNULA; Modified Allen's Test Pass; Oxygen Saturation ABG 85.9 % (95.0-100.0); PO2 ABG 48.2 mmHg (80.0-100.0); Site Drawn RIGHT RADIAL
[2021-02-23 08:51] LABS: Hematocrit 27.2 % (37.0-47.0); Immature Granulocyte Absolute 0.03 K/mm3 (0.00-0.031); Immature Granulocyte Percent A 0.9 % (0-0.5); Lymphocytes Absolute Auto 0.27 K/mm3 (0.9-3.2); Lymphocytes Percent Auto 8.3 % (18.3-44.2); Mean Corpuscular HGB Conc 33.1 g/dl (32-36); Mean Corpuscular Hemoglobin 29.9 pg (26-34); Mean Corpuscular Volume 90.4 fl (80-100); Mean Platelet Volume 8.7 fl (7.4-10.4); Monocytes Absolute Auto 0.1 K/mm3 (0.1-0.6); Monocytes Percent Auto 3.4 % (2.6-8.5); Neutrophils Absolute Auto 2.8 K/mm3 (1.3-6.7); Neutrophils Percent Auto 87.4 % (45.5-73.1); Platelet Count Result 155 k/mm3 (150-375); Red Blood Count 3.01 M/mm3 (4.2-5.4); White Blood Count 3.3 K/mm3 (4.5-10.0)
[2021-02-23 09:06] LABS: Prothrombin Time 13.4 Seconds (11.1-14.7)
[2021-02-23 09:08] LABS: Partial Thromboplastin Time 100.7 SECONDS (22.3-36.8)
--- NOTE | 2021-02-23 09:25 | PCOTNOTE ---
The patient treatment was not able to be completed this date of 02/23/21 d/t patient's BP dropping rapidly. Per STUDENT OFFICER, hold therapy for today and patient may be transferring to different unit. Will plan to continue treatment per plan of care accordingly.
--- NOTE | 2021-02-23 09:27 | PCPTNOTE ---
No PT eval today due to medical changes-RN states to hold therapy.
[2021-02-23 09:33] LABS: Influenza Control Positive
[2021-02-23 09:35] LABS: Anion Gap 8 mmol/L (8-16); Blood Urea Nitrogen 21 mg/dL (7-17); CRP 13.5 mg/dL (<1.0); Calcium 8.5 mg/dL (8.4-10.2); Carbon Dioxide 20 mmol/L (22-30); Chloride 112 mmol/L (98-107); Estimated CRCL calculation 21 ml/min; Estimated Glomerular Filt Rate 33; Glucose 90 mg/dL (65-105); Potassium 3.1 mmol/L (3.4-5.0); Sodium 140 mmol/L (137-145)
[2021-02-23] MEDS: ENOXAPARIN 30 MG/0.3 ML SYRINGE SUB-Q (09:40)
[2021-02-23] MEDS: SODIUM CHLORIDE 0.9% IV 500 ML 999 ML IV CONT (09:41)
[2021-02-23 09:50] LABS: Alanine Aminotransferase 14 U/L (4-35); Albumin Level 3.1 g/dL (3.5-5.1); Alkaline Phosphatase 48 U/L (38-126); Aspartate Amino Transferase 52 U/L (14-36); Bilirubin,Total 0.2 mg/dL (0.2-1.3)
--- NOTE | 2021-02-23 10:04 | PC.NURSE ---
This patient, Sylvia Donnelly, was transferred to [ICU] on 02/23/21 at 1004. Personal belongings sent with patient. Report given to [KATERIN GRULLON RN]. Appropriate documentation sent with patient.
[2021-02-23 10:05] LABS: NT Pro B Type Natriuretic Pept 859 pg/mL (5-100)
--- NOTE | 2021-02-23 10:19 | PM.IMPN ---
Progress Note: A&P Assessment and Plan (1) Sepsis: Code(s): A41.9 - Sepsis, unspecified organism Status: Acute Assessment and Plan: 02/23/21- I was called from the nurse this morning stating that the patient was hypoxic and requiring more oxygen than she had been. She had also been hypotensive overnight and required 1 L of fluid hydration with improvement of her blood pressure. Recheck vitals this morning showed she was again Low-grade fever, hypotensive, hypoxic, tachycardic, leukopenia which met criteria for sepsis. I repeated blood cultures and antibiotics were broadened to IV cefepime, Levaquin and vancomycin for possible untreated bacterial pneumonia. she is still in isolation for COVID-19 because the test is pending. I will swab her for influenza to rule out other form of viral infection. a call the liberal arts and humanities chair for a consultation who did not recommend any further adjustments at this time. ABG was ordered which showed hypoxia so she was placed on high-flow nasal cannula. I talked to the orthopedic brace maker to excepted transfer the patient to the ICU for sepsis, continued decline of respiratory status and closer monitoring. Continue monitoring. (2) Acute respiratory failure with hypoxia: Code(s): J96.01 - Acute respiratory failure with hypoxia Status: Acute Assessment and Plan: Acute could be secondary to pneumonia versus COVID-19 versus CHF. Stat chest x-ray showed no significant change to bilateral infiltrates to the mid and lower lung zones, likely edema. Cannot exclude pneumonia. Continue with broad-spectrum antibiotics. She is receiving IV fluid hydration due to hypotension so we will have to monitor her fluid status to trying prevent fluid overload She is being swabbed for COVID due to elevated CRP, ferritin and LDH levels as well as worsening hypoxia were she is now requiring 12 L high-flow Continue DuoNeb treatments q.6 hours. Incentive spirometer and Cornet valve ordered Echocardiogram showed normal 60-65%. Diastolic dysfunction grade 1. Moderate aortic valve sclerosis. No Pulm HTN and normal systolic function. Continue monitoring respiratory status . (3) Bilateral pneumonia: Code(s): J18.9 - Pneumonia, unspecified organism Status: Acute Assessment and Plan: Community-acquired pneumonia. Patient has completed the COVID vaccination series. Brought and antibiotics. Mucinex and Cornet ordered to help mobilize secretions. Sputum culture shows lower respiratory tract appearance, Official results. Blood cultures shows no growth at this time , pending. Second blood cultures were obtained Pending urine antigens. Continue monitoring. (4) Abnormal urinalysis: Code(s): R82.90 - Unspecified abnormal findings in urine Status: Acute Assessment and Plan: No urinary symptoms at this time. She did just have a nephrostomy tube removed by Urology 8 days ago and was supposed to be on 7 days of antibiotics since stent was placed but she only took 3 days due to causing GI upset. Ceftriaxone should cover any underlying pathogen. Urine culture was negative I did get a renal ultrasound due to her history of nephrostomy tube in recent stent placement to ensure we are not missing some type of underlying infection. Renal ultrasound showed normal bladder, renal cyst, no hydronephrosis. Continue monitoring. (5) Leukopenia: Code(s): D72.819 - Decreased white blood cell count, unspecified Status: Acute Assessment and Plan: Could be related to underlying cancer and recent chemo on radiation therapy. Could be related to underlying viral infection with COVID-19, pending swab Continue monitoring.
--- NOTE | 2021-02-23 10:23 | PCRCNOTE ---
Window of time for administration has passed. See next scheduled administration.
--- NOTE | 2021-02-23 11:13 | WPDCNINT ---
Assessment and Plan Assessment and plan (1) Acute respiratory failure with hypoxia: Code(s): J96.01 - Acute respiratory failure with hypoxia Status: Acute Assessment and Plan: patient with acute failure likely pneumonia on chest x-ray - increased oxygen requirements. Currently on 12 L nasal cannula with good O2 sats, wean FiO2 to maintain O2 sats greater than 92% - continue levofloxacin, cefepime, vancomycin possible pneumonia - continue bronchodilators - if respiratory status deteriorates, will place patient on BiPAP (2) Sepsis: Code(s): A41.9 - Sepsis, unspecified organism Status: Acute Assessment and Plan: leukopenia, tachycardia, hypotension, acute kidney injury - will obtain lactic acid level - IV fluid bolus was given, patient was fluid responsive on noninvasive hemodynamic monitoring - continue to monitor blood pressures closely - if patient drops blood pressures will start vasopressor - 02/20/2021 blood cultures negative x2 - 02/23/2021: blood culture obtained and pending - 02/20/2021 urine culture: negative - 02/23/2021 urine culture pending (3) Bilateral pneumonia: Code(s): J18.9 - Pneumonia, unspecified organism Status: Acute Assessment and Plan: chest x-ray with bilateral infiltrates likely pneumonia - continue antibiotics as above - continue supplemental oxygen, bronchodilator (4) Generalized weakness: Code(s): R53.1 - Weakness Status: Acute Assessment and Plan: likely related infection, sepsis, hypotension - continue to monitor and will PT OT follow the patientt (5) Urinary tract infection: Qualifiers: Hematuria presence: with hematuria Urinary tract infection type: site unspecified Qualified Code(s): N39.0 - Urinary tract infection, site not specified; R31.9 - Hematuria, unspecified Code(s): N39.0 - Urinary tract infection, site not specified Status: Acute Assessment and Plan: recent UTI, not treated optimally as she stop taking her antibiotics at home - patient complaining of chills, - urine cultures have been obtained (6) GEE (acute kidney injury): Code(s): N17.9 - Acute kidney failure, unspecified Status: Acute Assessment and Plan: acute kidney injury likely related to hypotension, hypovolemia, infection, UTI - patient given IV fluid bolus - continue to maintain mean arterial pressures greater than 65 mmHg for adequate renal and other end-organ perfusion - continue monitor urine output, electrolytes and renal function (7) Suspected 2019 novel coronavirus infection: Code(s): Z20.822 - Contact with and (suspected) exposure to COVID-19 Status: Acute Assessment and Plan: patient with increased O2 requirements, elevated LDH, ferritin and CRP - SARS-CoV-2 PCR has been obtained and pending - continue droplet, airborne contact isolation/precautions Additional Plan discussed with patient updated with her condition and care. I did discuss with her regarding intubation and see CPR to which she is agreeable and request to be a full code code status: Full code critical care time spent: 43 minutes This dictation may have been done utilizing a voice recognition system. Attempts have been made to correct errors. However, there may be uncorrected grammatical, spelling, and recognition errors present. Due to a high probability of clinically significant, life threatening deterioration, the patient required my highest level of preparedness to intervene emergently and I personally spent this critical care time directly and personally managing the patient. This critical care time included obtaining a history; examining the patient; pulse oximetry; ordering and review of studies; arranging urgent treatment with development of a management plan; evaluation of patient's response to treatment; frequent reassessment; and discussions with other providers. It was exclusiv
--- NOTE | 2021-02-23 11:36 | PM.CNPUL ---
Assessment and Plan Assessment and plan (1) Acute respiratory failure with hypoxia: Code(s): J96.01 - Acute respiratory failure with hypoxia Status: Acute Assessment and Plan: Patient with acute hypoxemic respiratory failure with a blood gas on 8 L nasal cannula of 7.4 11/28/2047. Patient now requiring 12 L nasal cannula with saturations 95%. Etiology of hypoxemic respiratory failure includes septic shock, pneumonia, fluid overload, pulmonary embolism. Agree with empiric vancomycin, cefepime and Levaquin. Patient is to have a CT angiogram of the chest to assess for pulmonary embolism. Possible fluid overload And currently the Patient is hypotensive with a BNP of 859. IV fluids and or pressors being managed by the rehabilitation services director. Current cultures are negative and an influenza swab on 02/23 is negative. Stars test, urine Legionella and urine pneumococcal studies are pending from 02/21 and 02/22. There is no evidence of hypercarbic respiratory failure. Per the notes in the chart the patient had a negative PET scan so I do not believe there is evidence of recurrent malignancy. Patient was last given rituximab 05/10/2020 and has finished her cisplatin for her cervicle cancer about 2 months ago and has no reported exposure to immune check point inhibitors. I doubt there is a pulmonary related complication to her prior ear chemotherapy. Will follow with you. 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 Bernardo on 08/09/2020). 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 Patient had an emergent left nephrostomy tube placed for left hydro on 12/12/20 and removed about 1 week ago per patients report. Note by Dr. Vega on 01/23/21 is that PET scan at [facility] was without evidence of recurrent disease. the plan was for placement of a JJ stent by interventional Radiology now that there has been a good response to radiation therapy. The patient tells me that she had her nephrostomy tube removed and a stent placed approximately a week ago. Patient at tells me that she was doing well until a nephrostomy tube was removed and that when this nephrostomy tube was removed she developed weakness, chills, shortness of breath, cough with clear phlegm and shakes. She presented to the emergency department on 02/20 with weakness as a main complaint and had a chest x-ray with patchy bilateral infiltrates and was started on ceftriaxone and azithromycin for community-acquired pneumonia. saturations on 02/20 were 95% on room air. She had a white blood cell count of 4.2K, a creatinine of 1.90, a lactic acid of 0.9 with a repeat lactic acid of 0.8, a urinalysis with 2+ leukocyte esterase, greater than 75 white blood cell count and urine bacteria of 1+. Urine culture was no growth, blood cultures were no growth, sputum g stain showed few epithelial cells, few white blood cells and growth of normal arjun. on 02/21 patient required 1 L nasal cannula oxygen with saturations 93%. Later in the day on 02/21 she required 2 L nasal cannula. on 02/23 patient became hypotensive and received 1 L IV bolus and she became hypoxic requiring traveled 12 L nasal cannula oxygen. Patient was changed to vancomycin, cefepime and levofloxacin for possible healthcare associated pneumonia. A COVID test was sent and the patient was transferred to the ICU. Echo 02/22 Summary 1. Complete two-dimensional, color flow and Doppler transthoracic echocardiogram is performed. 2. Left ventricular chamber dimension is n
[2021-02-23] MEDS: hetaSTARCH 6%/NACL 500 ML 250 ML IV CONT (11:47)
[2021-02-23 11:54] LABS: Lactic Acid Reflex 1.8 mmol/L (0.7-2.1)
[2021-02-23 13:49] LABS: SARS-CoV-2 RNA PCR Positive
[2021-02-23] MEDS: KCL 20 MEQ/SW 100 ML 100 ML 50 MEQ IVPB (13:57)
[2021-02-23] MEDS: REMDESIVIR 200 MG/NS 250 ML 200 MG/250 ML BAG 250 MG IVPB (15:06)
[2021-02-23 15:30] LABS: Prothrombin Time 13.3 Seconds (11.1-14.7)
[2021-02-23 15:31] LABS: Alanine Aminotransferase 13 U/L (4-35); Estimated CRCL calculation 24 ml/min; Estimated Glomerular Filt Rate 40
[2021-02-23] MEDS: DEXAMETHASONE SOD PHOS INJ 4 MG/ML VIAL 6 MG IV PUSH (16:21)
[2021-02-23 16:29] LABS: SARS-CoV-2 IgG Non-Reactive (NonReactive)
[2021-02-23 21:33] LABS: Pneumococcal Antigen Urine Not Detected (Not Detected)
[2021-02-23] MEDS: ALBUTEROL SULFATE (*SP) INHALER 2 PUFF INHALATION (21:36)
--- NOTE | 2021-02-23 22:13 | PC.NURSE ---
Patient called personal computer network analyst light at 2210 stating that something was wrong with her oxygen. This nurse went to assess. Patient on Airvo, airvo trouble shooted and working correctly. Oxygen saturations began to drop with lowest recorded O2 sat at 73% on the monitor. Patient tachypneic at 39 bpm and tachycardic at 109 bpm. FiO2 increased to 90%, 15 L non-rebreather applied in addition to airvo. ICU respiratory called. Waiting for further recommendations.
--- NOTE | 2021-02-23 22:56 | PC.NURSE ---
Initial call to Dr. Spann at 2230 p.m. regarding patient status update and worsening condition. Physician orders to initiate bipap therapy and keep tidal volumes >450.
[2021-02-24] VITALS (29 sets, daily range): BP systolic 101–129; BP diastolic 66–91; PULSE 75–123; RESP 18–38; TEMP 36.5–37.1; O2SAT 92–100
[2021-02-24] MEDS: IPRATROPIUM BR 0.02% INH SOLN 0.5 MG/2.5 ML VIAL INHALATION ×4 (01:39→21:00)
[2021-02-24] MEDS: ALBUTEROL SULFATE NEB 2.5 MG/0.5 ML INH INHALATION ×4 (01:39→21:00)
[2021-02-24] MEDS: SODIUM CHLORIDE 0.9% IV 1,000 ML 75 ML IV CONT (05:19)
[2021-02-24] MEDS: CENTRAL LINE FLUSH 10 ML IV PUSH ×3 (05:19→20:42)
[2021-02-24 05:38] LABS: Hematocrit 25.3 % (37.0-47.0); Hemoglobin 8.6 g/dL (12.0-15.0); Immature Granulocyte Absolute 0.07 K/mm3 (0.00-0.031); Immature Granulocyte Percent A 1.7 % (0-0.5); Lymphocytes Absolute Auto 0.22 K/mm3 (0.9-3.2); Lymphocytes Percent Auto 5.2 % (18.3-44.2); Mean Corpuscular Hemoglobin 30.3 pg (26-34); Mean Corpuscular Volume 89.1 fl (80-100); Mean Platelet Volume 8.5 fl (7.4-10.4); Monocytes Absolute Auto 0.1 K/mm3 (0.1-0.6); Monocytes Percent Auto 2.6 % (2.6-8.5); Neutrophils Absolute Auto 3.8 K/mm3 (1.3-6.7); Neutrophils Percent Auto 90.5 % (45.5-73.1); Platelet Count Result 136 k/mm3 (150-375); Red Blood Count 2.84 M/mm3 (4.2-5.4); Red Cell Distribution Width 12.9 % (11.5-14.5); White Blood Count 4.2 K/mm3 (4.5-10.0)
[2021-02-24 05:41] LABS: Alveolar/Arterial O2 Gradient 527.9 mmHg; Base Excess ABG -6.4 mEq/l (+/-2.0); Carboxyhemoglobin 0.1 % THb (0-2.0); Fractional Inspired Oxygen 100 %; Methemoglobin ABG 0.4 %THb (0-1.5); Oxygen Content ABG 13.9 %vol (16.0-22.0); Oxygen Saturation ABG 99.1 % (95.0-100.0); Oxyhemoglobin 97.4 % THb (90.0-100.0); PO2 ABG 158.1 mmHg (80.0-100.0); PO2 FiO2 Ratio Arterial Blood 1.58 %; Reduced Hemoglobin 2.1 %THb (0-5.0); Total Hemoglobin 9.9 g/dL (12.0-18.0); pH ABG 7.417 (7.350-7.450)
[2021-02-24 05:42] LABS: Device NON-INVASIVE VENT; Modified Allen's Test Pass; Non-Invasive Expiratory Pressure 8 CMH2O; Non-Invasive Inspiratory Pressure 16 CMH2O; Non-Invasive Vent Rate 4 /MIN; Site Drawn LEFT RADIAL
[2021-02-24 06:02] LABS: Alanine Aminotransferase 13 U/L (4-35); Albumin Level 2.7 g/dL (3.5-5.1); Alkaline Phosphatase 47 U/L (38-126); Anion Gap 6 mmol/L (8-16); Aspartate Amino Transferase 50 U/L (14-36); Bilirubin,Total < 0.1 mg/dL (0.2-1.3); Blood Urea Nitrogen 18 mg/dL (7-17); Carbon Dioxide 19 mmol/L (22-30); Chloride 116 mmol/L (98-107); Estimated CRCL calculation 26 ml/min; Estimated Glomerular Filt Rate 43; Glucose 123 mg/dL (65-105); Magnesium 1.8 mg/dL (1.6-2.3); Phosphorus 3.4 mg/dL (2.5-4.5); Sodium 141 mmol/L (137-145)
[2021-02-24 06:07] LABS: CRP 13.4 mg/dL (<1.0)
[2021-02-24] MEDS: FUROSEMIDE INJ 40 MG/4 ML VIAL IV PUSH (08:50)
[2021-02-24] MEDS: ENOXAPARIN 30 MG/0.3 ML SYRINGE SUB-Q (08:51)
[2021-02-24] MEDS: ASCORBIC ACID 500 MG TABLET PO (08:51)
[2021-02-24] MEDS: CYANOCOBALAMIN 1,000 MCG TABLET 1000 MCG PO (08:51)
[2021-02-24] MEDS: DEXAMETHASONE SOD PHOS INJ 4 MG/ML VIAL 6 MG IV PUSH (08:51)
[2021-02-24] MEDS: PANTOPRAZOLE 40 MG TABLET PO (08:52)
[2021-02-24] MEDS: FERROUS SULFATE 324 MG TABLET PO (08:52)
[2021-02-24] MEDS: guaiFENesin 12 HR 600 MG TABCR PO (08:52)
[2021-02-24] MEDS: VITAMIN B COMPLEX CAPSULE 1 CAP PO (08:52)
[2021-02-24] MEDS: CHOLECALCIFEROL 1,000 UNITS TABLET 2000 UNITS PO (08:52)
--- NOTE | 2021-02-24 10:26 | PCPTNOTE ---
Spoke w/ Dr Spann, stated to hold therapy today and try again tomorrow. Will follow.
--- NOTE | 2021-02-24 11:04 | PCDIET ---
Nutrition Follow-Up Complete: Nutrition Diagnosis: Inadequate oral intake related to UTI as evidenced by weight loss and decreased appetite. Nutrition Goal: Meet estimated nutritional needs Goal not met. Intakes vary from 10-25% of most meals on regular diet. Receiving oral supplements, but intakes are currently limited due to bipap requirement. Last recorded weight is 59.4 kg which is increased from last review. +I/O. Bowel Motility: RN reporting diarrhea. Labs Reviewed: Hgb (8.6), Hct (25.3), Glu (123), BUN (18), Cr (1.2), Alb (2.7), [place] Ca (9.04) Meds Noted: Albuterol, Vitamin B12, Vitamin C, Decadron, Maxipime, Ferrous Sulfate, Atrovent, Levaquin, Protonix, Remdesivir, Vancomycin, Vitamin D, Vitamin B Complex, Iron Sucrose, Lasix Additional Notes: RN reports patient had difficulty with pills this morning due to shortness of breath. Recommend continuing regular diet with Ensure Compact BID and Frozen Nutritional Treat BID. Would encourage small, frequent meals, as tolerated. May need to consider supplemental nutrition support if intakes to not improve over the next few days. Nutrition Monitoring and Evaluation: Will monitor every 3 days.
[2021-02-24] MEDS: REMDESIVIR 100 MG/NS 250 ML 100 MG/250 ML BAG 250 MG IVPB (11:43)
--- NOTE | 2021-02-24 11:46 | WPDINTPN ---
Progress Note: A&P Assessment and Plan (1) Acute respiratory failure with hypoxia: Code(s): J96.01 - Acute respiratory failure with hypoxia Status: Acute Assessment and Plan: patient with acute failure likely COVID-19 pneumonia on chest x-ray - increased oxygen requirements. requiring transferring to the ICU on 02/23/2021 - patient has been placed on BiPAP, decrease the settings to 12/6 70%, will wean FiO2 to maintain O2 sats greater than 92% - continue levofloxacin, cefepime, vancomycin - continue bronchodilators - appreciate pulmonology evaluation and recommendation, if she does not tolerate BiPAP will switch to AVAPS (2) Sepsis: Code(s): A41.9 - Sepsis, unspecified organism Status: Acute Assessment and Plan: leukopenia, tachycardia, hypotension, acute kidney injury on 02/23/2021 - lactic acid levels were normal, - blood pressures have improved, creatinine has improved from 1.5-1.2 this morning - I - 02/20/2021 blood cultures negative x2 - 02/23/2021: blood culture negative x2 - 02/20/2021 urine culture: negative - 02/23/2021 urine culture pending, if urine cultures does not show any Enterococcus was Staph aureus, will discontinue vancomycin (3) Bilateral pneumonia: Code(s): J18.9 - Pneumonia, unspecified organism Status: Acute Assessment and Plan: chest x-ray with bilateral infiltrates likely pneumonia - continue antibiotics as above - continue supplemental oxygen, bronchodilator (4) Generalized weakness: Code(s): R53.1 - Weakness Status: Acute Assessment and Plan: likely related infection, sepsis, hypotension - continue to monitor and will have PT OT follow the patientt (5) Urinary tract infection: Qualifiers: Hematuria presence: with hematuria Urinary tract infection type: site unspecified Qualified Code(s): N39.0 - Urinary tract infection, site not specified; R31.9 - Hematuria, unspecified Code(s): N39.0 - Urinary tract infection, site not specified Status: Acute Assessment and Plan: recent UTI, not treated optimally as she stop taking her antibiotics at home - patient complaining of chills, - urine cultures have been obtained (6) GEE (acute kidney injury): Code(s): N17.9 - Acute kidney failure, unspecified Status: Acute Assessment and Plan: acute kidney injury likely related to hypotension, hypovolemia, infection, UTI - patient given IV fluid bolus - continue to maintain mean arterial pressures greater than 65 mmHg for adequate renal and other end-organ perfusion - continue monitor urine output, electrolytes and renal function - BUN and creatinine improving (7) Suspected 2019 novel coronavirus infection: Code(s): Z20.822 - Contact with and (suspected) exposure to COVID-19 Status: Acute Assessment and Plan: patient with increased O2 requirements, elevated LDH, ferritin and CRP - SARS-CoV-2 PCR POSITIVE 02/22/2021 - SARS-CoV-2 PCR IgG antibody were nonreactive - total SARS-CoV-2 PCR antibodies were reactive ( according the lab this means that she could have had IgM and IgA antibodies positive) - continue dexamethasone and Remdesivir ( initiated on 02/23/2021) - discussed with pulmonology, does not report transfusion of convalescent COVID-19 plasma - continue droplet, airborne contact isolation/precautions - continue to trend inflammatory markers Additional Plan discussed with patient updated with her condition and care. I did discuss with her regarding intubation and see CPR to which she is agreeable and request to be a full code code status: Full code critical care time spent: 34 minutes This dictation may have been done utilizing a voice recognition system. Attempts have been made to correct errors. However, there may be uncorrected grammatical, spelling, and recognition errors present. Due to a high probability of clinically significant, l
--- NOTE | 2021-02-24 11:58 | PM.IMPN ---
Progress Note: A&P Assessment and Plan (1) Sepsis: Code(s): A41.9 - Sepsis, unspecified organism Status: Acute Assessment and Plan: IV antibiotics IV fluids monitor vital signs closely (2) Acute respiratory failure with hypoxia: Code(s): J96.01 - Acute respiratory failure with hypoxia Status: Acute Assessment and Plan: BiPAP support (3) Bilateral pneumonia: Code(s): J18.9 - Pneumonia, unspecified organism Status: Acute Assessment and Plan: IV antibiotic Subjective Date/time seen: 02/24/21 11:58 Interval history: shortness of breath is improving, blood pressure is better, patient on BiPAP. Exam Const: General: cooperative and no acute distress HENMT: Head: normal to inspection Eyes: General: appearance normal, both eyes and all related structures Neck: Neck: normal visual inspection Chest: Chest palpation & inspection: normal inspection of the chest Resp: Effort & Inspection: normal respiratory effort Cardio: Jugular venous distension: no JVD Rate: regular rate GI: Inspection: normal to inspection and non-distended Objective Data Vital Signs Vital Signs: Vital Signs - 24 hr 02/23/21 12:00 02/23/21 14:00 02/23/21 15:10 Temperature 97.8 F Pulse Rate 98 109 H 91 Respiratory Rate 26 H 20 Blood Pressure 121/78 Pulse Oximetry 92 81 L 02/23/21 15:11 02/23/21 15:17 02/23/21 16:00 Temperature 99.8 F H Pulse Rate 97 99 Respiratory Rate 18 15 Blood Pressure 111/75 Pulse Oximetry 93 98 02/23/21 18:00 02/23/21 19:45 02/23/21 19:47 Temperature 99.3 F Pulse Rate 108 H 90 Respiratory Rate 26 H 11 L Blood Pressure 110/83 Pulse Oximetry 90 90 02/23/21 19:55 02/23/21 20:00 02/23/21 21:51 Temperature 98.8 F Pulse Rate 107 H 101 H Respiratory Rate 30 H 30 H Blood Pressure 114/86 Pulse Oximetry 89 L 91 02/23/21 22:00 02/23/21 22:20 02/23/21 22:39 Temperature 98.4 F Pulse Rate 107 H 100 84 Respiratory Rate 31 H 29 H 23 H Blood Pressure 119/78 Pulse Oximetry 90 93 95 02/23/21 22:40 02/24/21 00:00 02/24/21 01:39 Temperature 98.3 F Pulse Rate 78 89 Respiratory Rate 22 H 30 H Blood Pressure 123/82 Pulse Oximetry 95 96 95 02/24/21 01:51 02/24/21 02:00 02/24/21 04:00 Temperature 98.3 F 98.5 F Pulse Rate 92 92 75 Respiratory Rate 29 H 24 H 26 H Blood Pressure 129/87 117/78 Pulse Oximetry 98 98 02/24/21 05:25 02/24/21 06:00 02/24/21 06:34 Temperature 98.7 F Pulse Rate 93 98 Respiratory Rate 30 H 25 H Blood Pressure 119/80 Pulse Oximetry 96 98 98 02/24/21 08:00 02/24/21 08:19 02/24/21 08:20 Temperature Pulse Rate 91 91 Respiratory Rate 23 H 23 H Blood Pressure Pulse Oximetry 95 100 02/24/21 08:28 02/24/21 10:46 Temperature Pulse Rate 123 H 82 Respiratory Rate 18 33 H Blood Pressure Pulse Oximetry 96 Intake/Output Intake/Output: Intake & Output 02/21/21 02/22/21 02/23/21 02/24/21 23:59 23:59 23:59 23:59 Intake Total 2085 1015 3405 855 Output Total 438 424 2171 825 Balance 1309 838 9470 30 Meds/Results Medications: Active Medications Generic Name Dose Route Start Last Admin Trade Name Freq PRN Reason Stop Dose Admin Albuterol 2.5 mg 02/21/21 08:35 02/24/21 08:18 Albuterol Sulfate Neb 2.5 Mg/0.5 Ml Inh INHALATION 2.5 mg Q6HRT BAN Administration Albuterol 2 puff 02/23/21 06:41 02/23/21 21:36 Albuterol Sulfate (*Sp) Inhaler INHALATION 2 puff QIDRT PRN Administration Shortness Of Breath Ascorbic Acid 500 mg 02/21/21 09:00 02/24/21 08:51 Ascorbic Acid 500 Mg Tablet PO 500 mg DAILY BAN Administration Cyanocobalamin 1,000 mcg 02/24/21 09:00 02/24/21 08:51 Cyanocobalamin 1,000 Mcg Tablet PO 1,000 mcg QAM BAN Administration Dexamethasone Sodium Phosphate 6 mg 02/23/21 15:53 02/24/21 08:51 Dexamethasone Sod Phos Inj 4 Mg/Ml Vial IV PUSH 03/04/21 09:01 6 mg DEBI
[2021-02-24 13:28] LABS: IFOB Positive Control Positive; Immunochemical Fecal Occult Bl Negative (N)
[2021-02-24 19:23] LABS: Legionella pneumophila Ag Ur Not Detected (Not Detected)
[2021-02-24] MEDS: ALPRAZolam (*CRX) 0.25 MG TABLET PO (22:36)
[2021-02-25] VITALS (26 sets, daily range): BP systolic 94–128; BP diastolic 54–86; PULSE 79–114; RESP 18–95; TEMP 35.9–36.6; O2SAT 24–100
[2021-02-25] MEDS: LORazepam INJ (*CRX) 2 MG/ML VIAL 1 MG IV PUSH (01:15)
[2021-02-25] MEDS: IPRATROPIUM BR 0.02% INH SOLN 0.5 MG/2.5 ML VIAL INHALATION ×4 (01:51→19:51)
[2021-02-25] MEDS: ALBUTEROL SULFATE NEB 2.5 MG/0.5 ML INH INHALATION ×4 (01:51→19:51)
[2021-02-25 04:54] LABS: Hematocrit 25.8 % (37.0-47.0); Hemoglobin 8.7 g/dL (12.0-15.0); Mean Corpuscular HGB Conc 33.7 g/dl (32-36); Mean Platelet Volume 8.9 fl (7.4-10.4); Platelet Count Result 151 k/mm3 (150-375); Red Cell Distribution Width 13.1 % (11.5-14.5); White Blood Count 5.3 K/mm3 (4.5-10.0)
[2021-02-25 05:05] LABS: Prothrombin Time 14.2 Seconds (11.1-14.7)
[2021-02-25] MEDS: CENTRAL LINE FLUSH 10 ML IV PUSH ×3 (05:09→20:08)
[2021-02-25 05:19] LABS: Alanine Aminotransferase 13 U/L (4-35); Anion Gap 10 mmol/L (8-16); Blood Urea Nitrogen 33 mg/dL (7-17); CRP 7.7 mg/dL (<1.0); Calcium 8.6 mg/dL (8.4-10.2); Carbon Dioxide 20 mmol/L (22-30); Chloride 111 mmol/L (98-107); Estimated CRCL calculation 21 ml/min; Estimated Glomerular Filt Rate 33; Glucose 152 mg/dL (65-105); Lactate Dehydrogenase 981 U/L (313-618); Potassium 3.3 mmol/L (3.4-5.0); Sodium 141 mmol/L (137-145)
[2021-02-25] MEDS: ENOXAPARIN 30 MG/0.3 ML SYRINGE SUB-Q (08:00)
[2021-02-25] MEDS: PANTOPRAZOLE SODIUM IV 40 MG VIAL IV PUSH (08:00)
[2021-02-25] MEDS: DEXAMETHASONE SOD PHOS INJ 4 MG/ML VIAL 6 MG IV PUSH (08:00)
[2021-02-25 08:43] LABS: Ferritin > 2000.00 ng/mL (11.1-264)
--- NOTE | 2021-02-25 09:06 | WPDINTPN ---
Progress Note: A&P Assessment and Plan (1) Acute respiratory failure with hypoxia: Code(s): J96.01 - Acute respiratory failure with hypoxia Status: Acute Assessment and Plan: patient with acute failure likely COVID-19 pneumonia on chest x-ray, ? secondary bacterial pneumonia - increased oxygen requirements. requiring transferring to the ICU on 02/23/2021. - patient was placed on BiPAP yesterday, 08/04 currently on 40% FiO2 - will transition to Airvo and monitor patient. if patient tolerates Airvo, will use BiPAP p.r.n. and nightly - Rocephin and azithromycin started 02/20. patient was switched to 02/23 to levofloxacin, cefepime, vancomycin. with deescalate depending on culture results - continue bronchodilators (2) Pneumonia due to COVID-19 virus: Code(s): U07.1 - COVID-19; J12.82 - Pneumonia due to coronavirus disease 2019 Status: Acute Assessment and Plan: patient with increased O2 requirements, elevated LDH, ferritin and CRP - SARS-CoV-2 PCR POSITIVE 02/22/2021 - SARS-CoV-2 PCR IgG antibody were nonreactive - total SARS-CoV-2 PCR antibodies were reactive ( according the lab this means that she could have had IgM antibodies positive) - continue dexamethasone and Remdesivir ( initiated on 02/23/2021) - discussed with pulmonology, does not report transfusion of convalescent COVID-19 plasma - continue droplet, airborne contact isolation/precautions - continue to trend inflammatory markers (3) Sepsis: Code(s): A41.9 - Sepsis, unspecified organism Status: Acute Assessment and Plan: leukopenia, tachycardia, hypotension, acute kidney injury on 02/23/2021 - lactic acid levels were normal, - blood pressures have improved, creatinine has improved from 1.5-1.2 this morning - 02/20/2021 blood cultures negative x2 - 02/23/2021: blood culture negative x2 - 02/20/2021 urine culture: negative - 02/23/2021 urine culture pending, if urine cultures does not show any Enterococcus was Staph aureus, will discontinue vancomycin (4) Bilateral pneumonia: Code(s): J18.9 - Pneumonia, unspecified organism Status: Acute Assessment and Plan: chest x-ray with bilateral infiltrates likely pneumonia - continue antibiotics as above - continue supplemental oxygen, bronchodilator (5) Generalized weakness: Code(s): R53.1 - Weakness Status: Acute Assessment and Plan: likely related infection, sepsis, hypotension - continue to monitor and will have PT OT follow the patientt (6) Urinary tract infection: Qualifiers: Hematuria presence: with hematuria Urinary tract infection type: site unspecified Qualified Code(s): N39.0 - Urinary tract infection, site not specified; R31.9 - Hematuria, unspecified Code(s): N39.0 - Urinary tract infection, site not specified Status: Acute Assessment and Plan: recent UTI, not treated optimally as she stop taking her antibiotics at home - patient complaining of chills, - urine cultures has been negative (7) GEE (acute kidney injury): Code(s): N17.9 - Acute kidney failure, unspecified Status: Acute Assessment and Plan: acute kidney injury likely related to hypotension, hypovolemia, infection, UTI - patient given IV fluid bolus - continue to maintain mean arterial pressures greater than 65 mmHg for adequate renal and other end-organ perfusion - continue monitor urine output, electrolytes and renal function - monitor BUN and creatinine Additional Plan discussed with patient updated with her condition and care. I did discuss with her regarding intubation and see CPR to which she is agreeable and request to be a full code Code status: Full code DVTP - Lovenox SUP - PPI Critical care time spent: 32 minutes This dictation may have been done utilizing a voice recognition system. Attempts have been made to correct errors. However, there may be uncorrected grammat
[2021-02-25] MEDS: REMDESIVIR 100 MG/NS 250 ML 100 MG/250 ML BAG 250 MG IVPB (09:33)
[2021-02-25] MEDS: POTASSIUM CHLORIDE 20 MEQ PACKET (FOR LIQUID) 40 MEQ PO (10:51)
--- NOTE | 2021-02-25 11:19 | PCFNICU ---
ICU Rounding Note: Patient had minimal intake on 02/24/21, but currently eating toast and oatmeal, per RT. Recommend continuing regular diet, as tolerated, with Ensure Compact TID and Frozen Nutritional Treat BID. Last recorded weight is 58.9kg which is slightly decreased from last review. -I/O. Bowel Motility: BM x 3 on 02/24/21. Labs Reviewed: RBC (2.90), Hgb (8.7), Hct (25.8), Glu (152), BUN (33), Cr (1.5), K (3.3), Alb (2.7), LDH (981), CRP (7.7), Ferritin (>2000) Meds Noted: KCl, Albuterol, Vitamin C, Cefepime, Vitamin B12, Decadron, Ferrous Sulfate, Atrovent, Levaquin, Protonix, Remdesivir, Vancomycin, Vitamin B Complex, Vitamin D Additional Notes: RN reporting patient c/o sore mouth. ordering Chloraseptic Manson. No documented skin breakdown. Following daily in ICU rounds. Assessing/reassessing every 3 days.
--- NOTE | 2021-02-25 12:25 | PM.IMPN ---
Progress Note: A&P Assessment and Plan (1) Sepsis: Code(s): A41.9 - Sepsis, unspecified organism Status: Acute Assessment and Plan: IV antibiotics IV fluids monitor vital signs closely Check culture reports. (2) Acute respiratory failure with hypoxia: Code(s): J96.01 - Acute respiratory failure with hypoxia Status: Acute Assessment and Plan: BiPAP support as needed. Will continue with oxygen. (3) Bilateral pneumonia: Code(s): J18.9 - Pneumonia, unspecified organism Status: Acute Assessment and Plan: IV antibiotic Additional Plan Will do trial trial of taking patient off BiPAP. Will continue the oxygen and IV antibiotics. Monitor chest x-ray electrolytes. Subjective Date/time seen: 02/25/21 12:25 Patient was seen during morning rounds today. Patient is feeling slightly better. Decreased shortness of breath. No chest pain. No abdominal pain, no nausea, no vomiting. Mood stable. Review of Systems Review of Systems: All systems reviewed & are unremarkable except as noted in HPI and below Exam Narrative: Exam Narrative: General: 80-year-old woman sitting up in the bed , appears fatigued and talking to the slide attendant. Appears comfortable on 12 L high-flow nasal cannula. In no acute distress. Skin: No jaundice or cyanosis. Good skin turgor. Neck: Full range of motion. Supple. Respiratory: Decreased lung sounds secondary to deposable stethoscope for isolation room. No bony chest wall tenderness. Cardiovascular: Slight Tachycardic heart rate. The heart has a regular rhythm without murmur. Lower extremities: No lower extremity edema. Distal pulses are easily palpated. No calf tenderness to palpation. Gastrointestinal: The abdomen is soft, nontender and nondistended with active bowel sounds. Psychiatric: Lucid and oriented. Memory intact. Neurologic: No focal deficits. Speech is clear. No facial drooping. Const: General: cooperative and no acute distress HENMT: Head: normal to inspection Eyes: General: appearance normal, both eyes and all related structures Neck: Neck: normal visual inspection Chest: Chest palpation & inspection: normal inspection of the chest Resp: Effort & Inspection: normal respiratory effort Cardio: Jugular venous distension: no JVD Rate: regular rate GI: Inspection: normal to inspection and non-distended Objective Data Vital Signs Vital Signs: Vital Signs - 24 hr 02/24/21 14:00 02/24/21 14:12 02/24/21 14:13 Temperature Pulse Rate 97 87 87 Respiratory Rate 19 36 H 36 H Blood Pressure 122/76 Pulse Oximetry 99 100 02/24/21 14:19 02/24/21 16:00 02/24/21 16:55 Temperature 36.7 C Pulse Rate 84 86 92 Respiratory Rate 25 H 24 H 27 H Blood Pressure 103/66 Pulse Oximetry 97 97 02/24/21 18:00 02/24/21 20:00 02/24/21 21:01 Temperature 36.6 C 36.5 C Pulse Rate 83 89 83 Respiratory Rate 28 H 24 H 32 H Blood Pressure 106/91 H 113/75 Pulse Oximetry 97 95 02/24/21 21:04 02/24/21 21:06 02/24/21 22:00 Temperature 36.5 C Pulse Rate 85 87 94 Respiratory Rate 29 H 30 H 26 H Blood Pressure 101/73 Pulse Oximetry 96 93 02/24/21 23:43 02/25/21 00:00 02/25/21 01:51 Temperature 36.2 C L Pulse Rate 86 80 80 Respiratory Rate 24 H 95 H 31 H Blood Pressure 102/70 Pulse Oximetry 96 24 L 02/25/21 01:52 02/25/21 01:56 02/25/21 02:00 Temperature Pulse Rate 82 79 87 Respiratory Rate 25 H 29 H 28 H Blood Pressure 111/64 Pulse Oximetry 93 93 02/25/21 03:41 02/25/21 04:00 02/25/21 06:00 Temperature 36.3 C L Pulse Rate 87 88 82 Respiratory Rate 28 H 31 H 25 H Blood Pressure 94/62 L 94/57 L Pulse Oximetry 93 91 91 02/25/21 08:00 02/25/21 08:28 02/25/21 09:09 Temperature 36.1 C L Pulse Rate 89 92 93 Respiratory Rate 30 H Blood Pressure 117/75 Pulse Oximetry 92 94 100 02/25/21 09:10 02/25/21 10:00 02/25/21 12:00 Temperature 35.9 C L
[2021-02-25] MEDS: PHENOL/SOD PHENO SPRAY CHERRY (*BKC) 1 SPRAY MUCOUS MEM ×2 (13:01→18:23)
[2021-02-25] MEDS: ACETAMINOPHEN ELIXIR 325 MG/10.15 ML UDC 650 MG PO (20:08)
[2021-02-26] VITALS (24 sets, daily range): BP systolic 113–131; BP diastolic 79–94; PULSE 70–111; RESP 16–31; TEMP 36.1–36.8; O2SAT 91–100
--- NOTE | 2021-02-26 00:44 | PC.NURSE ---
Patient refuses bipap, states her breathing is fine on Airvo. Current o2 Sat 97% on 60, 55%
[2021-02-26] MEDS: ALBUTEROL SULFATE NEB 2.5 MG/0.5 ML INH INHALATION ×4 (01:14→20:54)
[2021-02-26] MEDS: IPRATROPIUM BR 0.02% INH SOLN 0.5 MG/2.5 ML VIAL INHALATION ×4 (01:14→20:54)
[2021-02-26 04:43] LABS: Hematocrit 28.3 % (37.0-47.0); Hemoglobin 9.5 g/dL (12.0-15.0); Mean Corpuscular HGB Conc 33.6 g/dl (32-36); Mean Corpuscular Hemoglobin 30.2 pg (26-34); Mean Corpuscular Volume 89.8 fl (80-100); Mean Platelet Volume 8.9 fl (7.4-10.4); Platelet Count Result 175 k/mm3 (150-375); Red Blood Count 3.15 M/mm3 (4.2-5.4); Red Cell Distribution Width 13.3 % (11.5-14.5); White Blood Count 8.6 K/mm3 (4.5-10.0)
[2021-02-26 04:56] LABS: INR 1.2; Prothrombin Time 15.4 Seconds (11.1-14.7)
[2021-02-26 04:57] LABS: Alanine Aminotransferase 18 U/L (4-35); Albumin Level 2.9 g/dL (3.5-5.1); Alkaline Phosphatase 58 U/L (38-126); Anion Gap 6 mmol/L (8-16); Aspartate Amino Transferase 65 U/L (14-36); Bilirubin,Total < 0.1 mg/dL (0.2-1.3); Blood Urea Nitrogen 35 mg/dL (7-17); Carbon Dioxide 21 mmol/L (22-30); Chloride 113 mmol/L (98-107); Estimated CRCL calculation 24 ml/min; Estimated Glomerular Filt Rate 40; Glucose 94 mg/dL (65-105); Magnesium 2.1 mg/dL (1.6-2.3); Potassium 4.1 mmol/L (3.4-5.0); Sodium 140 mmol/L (137-145)
[2021-02-26] MEDS: CENTRAL LINE FLUSH 10 ML IV PUSH ×3 (06:35→20:51)
--- NOTE | 2021-02-26 08:19 | WPDINTPN ---
Progress Note: A&P Assessment and Plan (1) Acute respiratory failure with hypoxia: Code(s): J96.01 - Acute respiratory failure with hypoxia Status: Acute Assessment and Plan: patient with acute failure likely COVID-19 pneumonia on chest x-ray, ? secondary bacterial pneumonia - increased oxygen requirements. requiring transferring to the ICU on 02/23/2021. - patient was placed on BiPAP 02/24, 08/04 currently on 40% FiO2. patient was transition to Airvo yesterday and tolerated well - patient was placed back on BiPAP overnight and is on airvo now - but overall patient's oxygen requirement has increased and she is currently on 90% Airvo - will continue BiPAP p.r.n. and nightly - may need intubation if continues to worsen - Rocephin and azithromycin started 02/20. patient was switched to 02/23 to levofloxacin, cefepime, vancomycin. - all cultures have been negative and I will discontinue vancomycin and levofloxacin. Continue cefepime at this time - continue bronchodilators (2) Pneumonia due to COVID-19 virus: Code(s): U07.1 - COVID-19; J12.82 - Pneumonia due to coronavirus disease 2019 Status: Acute Assessment and Plan: patient with increased O2 requirements, elevated LDH, ferritin and CRP - SARS-CoV-2 PCR POSITIVE 02/22/2021 - SARS-CoV-2 PCR IgG antibody were nonreactive - total SARS-CoV-2 PCR antibodies were reactive ( according the lab this means that she could have had IgM antibodies positive) - continue dexamethasone and Remdesivir ( initiated on 02/23/2021) - discussed with pulmonology, does not report transfusion of convalescent COVID-19 plasma - continue droplet, airborne contact isolation/precautions - continue to trend inflammatory markers (3) Sepsis: Code(s): A41.9 - Sepsis, unspecified organism Status: Acute Assessment and Plan: leukopenia, tachycardia, hypotension, acute kidney injury on 02/23/2021 - lactic acid levels were normal, - blood pressures have improved, creatinine has improved from 1.5-1.2 this morning - 02/20/2021 blood cultures negative x2 - 02/23/2021: blood culture negative x2 - 02/20/2021 urine culture: negative - 02/23/2021 urine culture negative (4) Bilateral pneumonia: Code(s): J18.9 - Pneumonia, unspecified organism Status: Acute Assessment and Plan: chest x-ray with bilateral infiltrates likely pneumonia - continue antibiotics as above - continue supplemental oxygen, bronchodilator (5) Generalized weakness: Code(s): R53.1 - Weakness Status: Acute Assessment and Plan: likely related infection, sepsis, hypotension - continue to monitor and will have PT OT follow the patientt (6) Urinary tract infection: Qualifiers: Hematuria presence: with hematuria Urinary tract infection type: site unspecified Qualified Code(s): N39.0 - Urinary tract infection, site not specified; R31.9 - Hematuria, unspecified Code(s): N39.0 - Urinary tract infection, site not specified Status: Acute Assessment and Plan: recent UTI, not treated optimally as she stop taking her antibiotics at home - patient complaining of chills, - urine cultures has been negative (7) GEE (acute kidney injury): Code(s): N17.9 - Acute kidney failure, unspecified Status: Acute Assessment and Plan: acute kidney injury likely related to hypotension, hypovolemia, infection, UTI - patient was given IV fluid bolus - continue to maintain mean arterial pressures greater than 65 mmHg for adequate renal and other end-organ perfusion - continue monitor urine output, electrolytes and renal function - monitor BUN and creatinine stable at this time - replace low potassium Additional Plan discussed with patient updated with her condition and care. I did discuss with her regarding intubation and see CPR to which she is agreeable and request to be a full code. she wants her needs to be her
[2021-02-26] MEDS: REMDESIVIR 100 MG/NS 250 ML 100 MG/250 ML BAG 250 MG IVPB (09:48)
[2021-02-26] MEDS: ACETAMINOPHEN ELIXIR 325 MG/10.15 ML UDC 650 MG PO ×2 (09:49→16:08)
[2021-02-26] MEDS: ENOXAPARIN 30 MG/0.3 ML SYRINGE SUB-Q (09:49)
[2021-02-26] MEDS: CHOLECALCIFEROL 1,000 UNITS TABLET 2000 UNITS PO (09:50)
[2021-02-26] MEDS: PANTOPRAZOLE SODIUM IV 40 MG VIAL IV PUSH (09:50)
[2021-02-26] MEDS: CYANOCOBALAMIN 1,000 MCG TABLET 1000 MCG PO (09:50)
[2021-02-26] MEDS: FERROUS SULFATE 324 MG TABLET PO ×2 (09:50→17:32)
[2021-02-26] MEDS: DEXAMETHASONE SOD PHOS INJ 4 MG/ML VIAL 6 MG IV PUSH (09:51)
--- NOTE | 2021-02-26 10:57 | PM.IMPN ---
Progress Note: A&P Assessment and Plan (1) Sepsis: Code(s): A41.9 - Sepsis, unspecified organism Status: Acute Assessment and Plan: IV antibiotics IV fluids monitor vital signs closely Check culture reports. (2) Acute respiratory failure with hypoxia: Code(s): J96.01 - Acute respiratory failure with hypoxia Status: Acute Assessment and Plan: BiPAP support as needed. Will continue with oxygen. (3) Bilateral pneumonia: Code(s): J18.9 - Pneumonia, unspecified organism Status: Acute Assessment and Plan: IV antibiotic Additional Plan Will do trial trial of taking patient off BiPAP. Will continue the oxygen and IV antibiotics. Monitor chest x-ray electrolytes. 02/26/2021: Patient is clinically better. Creatinine has decreased to 1.3. Will continue current plan of care and treatment. Pain of BiPAP as tolerated. Monitor labs and electrolytes Subjective Date/time seen: 02/26/21 10:57 Patient was seen during the morning rounds today. Shortness of breath is slightly better pain,no chest pain. No abdominal pain, nausea, no vomiting. Mood stable. Interval history: Review of Systems Review of Systems: All systems reviewed & are unremarkable except as noted in HPI and below Exam Narrative: Exam Narrative: General: 80-year-old woman sitting up in the bed , appears fatigued and talking to the emergency medicine physician. Appears comfortable on 12 L high-flow nasal cannula. In no acute distress. Skin: No jaundice or cyanosis. Good skin turgor. Neck: Full range of motion. Supple. Respiratory: Decreased lung sounds secondary to deposable stethoscope for isolation room. No bony chest wall tenderness. Cardiovascular: Slight Tachycardic heart rate. The heart has a regular rhythm without murmur. Lower extremities: No lower extremity edema. Distal pulses are easily palpated. No calf tenderness to palpation. Gastrointestinal: The abdomen is soft, nontender and nondistended with active bowel sounds. Psychiatric: Lucid and oriented. Memory intact. Neurologic: No focal deficits. Speech is clear. No facial drooping. Const: General: cooperative and no acute distress HENMT: Head: normal to inspection Eyes: General: appearance normal, both eyes and all related structures Neck: Neck: normal visual inspection Chest: Chest palpation & inspection: normal inspection of the chest Resp: Effort & Inspection: normal respiratory effort Cardio: Jugular venous distension: no JVD Rate: regular rate GI: Inspection: normal to inspection and non-distended Objective Data Vital Signs Vital Signs: Vital Signs - 24 hr 02/25/21 12:00 02/25/21 14:00 02/25/21 14:20 Temperature Pulse Rate 94 86 100 Respiratory Rate 28 H 22 H 22 H Blood Pressure 117/70 128/54 L Pulse Oximetry 97 100 02/25/21 14:31 02/25/21 16:00 02/25/21 18:00 Temperature 36.6 C Pulse Rate 89 99 91 Respiratory Rate 18 26 H 19 Blood Pressure 126/80 120/86 Pulse Oximetry 91 92 02/25/21 19:41 02/25/21 19:51 02/25/21 19:52 Temperature Pulse Rate 91 100 100 Respiratory Rate 19 20 Blood Pressure Pulse Oximetry 92 94 02/25/21 20:00 02/25/21 20:01 02/25/21 22:00 Temperature Pulse Rate 97 91 96 Respiratory Rate 22 H 20 19 Blood Pressure 128/84 125/85 Pulse Oximetry 95 92 02/25/21 23:31 02/26/21 00:00 02/26/21 01:15 Temperature 36.1 C L Pulse Rate 84 110 H 89 Respiratory Rate 18 25 H 20 Blood Pressure 121/83 Pulse Oximetry 96 95 02/26/21 01:23 02/26/21 02:00 02/26/21 03:20 Temperature Pulse Rate 84 79 79 Respiratory Rate 20 26 H 26 H Blood Pressure 117/83 Pulse Oximetry 93 93 02/26/21 04:00 02/26/21 06:00 02/26/21 08:00 Temperature 36.2 C L 36.6 C Pulse Rate 78 80 109 H Respiratory Rate 24 H 31 H 27 H Blood Pressure 114/84 116/84 124/84 Pulse Oximetry 94 96 99 02/26/21 08:06 02/26/21 08:08 02/26/21 08:13 Temperature Pulse Rate
[2021-02-26] MEDS: HYDROcodone/acetaminophen (*CRX) 5-325 MG TABLET 1 TAB PO ×3 (11:00→22:54)
--- NOTE | 2021-02-26 11:49 | PCDIET ---
ICU Rounding Note: Patient currently NPO except meds with sips. Used bipap overnight and on airvo this morning. Last recorded weight is 60kg which is increased from last review. -I/O. Bowel Motility: +BM today. Labs Reviewed: RBC (3.15), Hgb (9.5), Hct (28.3), BUN (35), Cr (1.3), Cl (113), Alb (2.9) Meds Noted: Albuterol, Vitamin C, Vitamin D, Remdesivir, Vitamin B Complex, Maxipime, Vitamin B12, Novolog, Protonix, Decadron, Ferrous Sulfate, Atrovent, Chloraseptic [place] Additional Notes: No documented skin breakdown. Patient agreeable to intubation, if needed. May need to discuss nutrition support in the next couple of days. Following daily in ICU rounds. Assessing/reassessing every 3 days.
[2021-02-26 14:35] LABS: Vancomycin Trough < 5.0 ug/mL (10.0-20.0)
[2021-02-26 17:49] LABS: Glucose Point of Care 141 mg/dl (65-105)
[2021-02-26 21:38] LABS: Glucose Point of Care 145 mg/dl (65-105)
[2021-02-27] VITALS (28 sets, daily range): BP systolic 99–125; BP diastolic 67–93; PULSE 65–119; RESP 13–30; TEMP 36.2–37.1; O2SAT 92–100
[2021-02-27] MEDS: IPRATROPIUM BR 0.02% INH SOLN 0.5 MG/2.5 ML VIAL INHALATION ×4 (01:01→20:39)
[2021-02-27] MEDS: ALBUTEROL SULFATE NEB 2.5 MG/0.5 ML INH INHALATION ×4 (01:01→20:39)
[2021-02-27] MEDS: CENTRAL LINE FLUSH 10 ML IV PUSH ×3 (05:30→21:54)
[2021-02-27 05:48] LABS: INR 1.1; Prothrombin Time 14.9 Seconds (11.1-14.7)
[2021-02-27 05:51] LABS: D Dimer 0.84 ug/mL (<0.48)
[2021-02-27 05:53] LABS: Hematocrit 27.8 % (37.0-47.0); Hemoglobin 9.1 g/dL (12.0-15.0); Mean Corpuscular HGB Conc 32.7 g/dl (32-36); Mean Corpuscular Hemoglobin 29.6 pg (26-34); Mean Corpuscular Volume 90.6 fl (80-100); Platelet Count Result 168 k/mm3 (150-375); Red Blood Count 3.07 M/mm3 (4.2-5.4); Red Cell Distribution Width 13.5 % (11.5-14.5); White Blood Count 8.1 K/mm3 (4.5-10.0)
[2021-02-27 06:07] LABS: Alanine Aminotransferase 22 U/L (4-35); CRP 4.9 mg/dL (<1.0); Estimated CRCL calculation 24 ml/min; Estimated Glomerular Filt Rate 40; Lactate Dehydrogenase 843 U/L (313-618)
[2021-02-27 06:52] LABS: Anion Gap 8 mmol/L (8-16); Blood Urea Nitrogen 34 mg/dL (7-17); Calcium 8.8 mg/dL (8.4-10.2); Carbon Dioxide 20 mmol/L (22-30); Chloride 113 mmol/L (98-107); Estimated CRCL calculation 26 ml/min; Estimated Glomerular Filt Rate 43; Glucose 75 mg/dL (65-105); Sodium 141 mmol/L (137-145)
--- NOTE | 2021-02-27 08:55 | WPDINTPN ---
Progress Note: A&P Assessment and Plan (1) Acute respiratory failure with hypoxia: Code(s): J96.01 - Acute respiratory failure with hypoxia Status: Acute Assessment and Plan: patient with acute failure likely COVID-19 pneumonia on chest x-ray, ? secondary bacterial pneumonia - increased oxygen requirements. requiring transferring to the ICU on 02/23/2021. - patient was placed on BiPAP 02/24, 08/04 currently on 40% FiO2. patient was transition to Airvo yesterday and tolerated well - patient was placed back on BiPAP overnight and is on airvo now - off of non-rebreather mask and on Airvo at 80%. continue at this time - will continue BiPAP p.r.n. and nightly - may need intubation if continues to worsen - chest x-ray shows no significant change in her bilateral infiltrates - Rocephin and azithromycin started 02/20. patient was switched to 02/23 to levofloxacin, cefepime, vancomycin. - all cultures have been negative and I will discontinue vancomycin and levofloxacin. Continue cefepime at this time - continue bronchodilators - incentive spirometry - up in chair (2) Pneumonia due to COVID-19 virus: Code(s): U07.1 - COVID-19; J12.82 - Pneumonia due to coronavirus disease 2019 Status: Acute Assessment and Plan: patient with increased O2 requirements, elevated LDH, ferritin and CRP - SARS-CoV-2 PCR POSITIVE 02/22/2021 - SARS-CoV-2 PCR IgG antibody were nonreactive - total SARS-CoV-2 PCR antibodies were reactive ( according the lab this means that she could have had IgM antibodies positive) - continue dexamethasone and Remdesivir ( initiated on 02/23/2021) - Tocilizumab was considered and discussed with Pulmonary, but considering patient's recent chemotherapy, recent UTI, possibility of secondary bacterial infection, and now being 1 week out of her symptoms, we decided not to take the risk. Her CRP is also not that high - continue droplet, airborne contact isolation/precautions - continue to trend inflammatory markers which are improving (3) Sepsis: Code(s): A41.9 - Sepsis, unspecified organism Status: Acute Assessment and Plan: leukopenia, tachycardia, hypotension, acute kidney injury on 02/23/2021 - lactic acid levels were normal, - blood pressures have improved, creatinine has improved from 1.5-1.2 this morning - 02/20/2021 blood cultures negative x2 - 02/23/2021: blood culture negative x2 - 02/20/2021 urine culture: negative - 02/23/2021 urine culture negative (4) Bilateral pneumonia: Code(s): J18.9 - Pneumonia, unspecified organism Status: Acute Assessment and Plan: chest x-ray with bilateral infiltrates likely pneumonia - continue antibiotics as above - continue supplemental oxygen, bronchodilator (5) Generalized weakness: Code(s): R53.1 - Weakness Status: Acute Assessment and Plan: likely related infection, sepsis, hypotension - continue to monitor and PT OT (6) Urinary tract infection: Qualifiers: Hematuria presence: with hematuria Urinary tract infection type: site unspecified Qualified Code(s): N39.0 - Urinary tract infection, site not specified; R31.9 - Hematuria, unspecified Code(s): N39.0 - Urinary tract infection, site not specified Status: Acute Assessment and Plan: recent UTI, not treated optimally as she stop taking her antibiotics at home - patient complaining of chills, - urine cultures has been negative (7) GEE (acute kidney injury): Code(s): N17.9 - Acute kidney failure, unspecified Status: Acute Assessment and Plan: acute kidney injury likely related to hypotension, hypovolemia, infection, UTI - patient was given IV fluid bolus - continue to maintain mean arterial pressures greater than 65 mmHg for adequate renal and other end-organ perfusion - continue monitor urine output, electrolytes and renal function - monitor BUN and creatinine
[2021-02-27 09:01] LABS: Ferritin > 2000.00 ng/mL (11.1-264)
[2021-02-27] MEDS: REMDESIVIR 100 MG/NS 250 ML 100 MG/250 ML BAG 250 MG IVPB (10:06)
[2021-02-27] MEDS: DEXAMETHASONE SOD PHOS INJ 4 MG/ML VIAL 6 MG IV PUSH (10:07)
[2021-02-27] MEDS: ENOXAPARIN 30 MG/0.3 ML SYRINGE SUB-Q (10:07)
[2021-02-27] MEDS: PANTOPRAZOLE SODIUM IV 40 MG VIAL IV PUSH (10:08)
--- NOTE | 2021-02-27 11:27 | PCDIET ---
ICU Rounding Note: Patient just advanced to regular diet this morning. Last recorded weight is 51.7kg which is down from last review. -I/O. Recommend reweighing patient for accuracy. Bowel Motility: Last documented BM on 02/26/21 x 1. Labs Reviewed: RBC (3.07), Hgb (9.1), Hct (27.8), BUN (34), Cr (1.3), Cl (113) Meds Noted: [place], Albuterol, Vitamin C, Cefepime, Vitamin B12, Decadron, Novolog, Atrovent, Protonix, Vitamin B Complex, Vitamin D Additional Notes: No documented skin breakdown. Following daily in ICU rounds. Assessing/reassessing every 3 days.
[2021-02-27] MEDS: MORPHINE SULFATE (*CRX) 2 MG/ML INJ IV PUSH ×3 (11:40→21:54)
[2021-02-27 12:01] LABS: Glucose Point of Care 75 mg/dl (65-105)
[2021-02-27] MEDS: CHOLECALCIFEROL 1,000 UNITS TABLET 2000 UNITS PO (12:06)
[2021-02-27] MEDS: CYANOCOBALAMIN 1,000 MCG TABLET 1000 MCG PO (12:07)
[2021-02-27] MEDS: ASCORBIC ACID 500 MG TABLET PO (12:07)
[2021-02-27 13:26] LABS: Glucose Point of Care 72 mg/dl (65-105)
--- NOTE | 2021-02-27 16:58 | PM.IMPN ---
Progress Note: A&P Assessment and Plan (1) Sepsis: Code(s): A41.9 - Sepsis, unspecified organism Status: Acute Assessment and Plan: IV antibiotics IV fluids supportive care continue to monitor (2) Acute respiratory failure with hypoxia: Code(s): J96.01 - Acute respiratory failure with hypoxia Status: Acute Assessment and Plan: BiPAP support as needed. Will continue with oxygen. (3) Bilateral pneumonia: Code(s): J18.9 - Pneumonia, unspecified organism Status: Acute Assessment and Plan: IV antibiotic Additional Plan Will do trial trial of taking patient off BiPAP. Will continue the oxygen and IV antibiotics. Monitor chest x-ray electrolytes. 02/26/2021: Patient is clinically better. Creatinine has decreased to 1.3. Will continue current plan of care and treatment. Pain of BiPAP as tolerated. Monitor labs and electrolytes Subjective Date/time seen: 02/27/21 16:58 Interval history: I feel much better Review of Systems Review of Systems: All systems reviewed & are unremarkable except as noted in HPI and below Exam Narrative: Exam Narrative: General: 80-year-old woman sitting up in the bed , appears fatigued and talking to the health occupations teacher. Appears comfortable on 12 L high-flow nasal cannula. In no acute distress. Skin: No jaundice or cyanosis. Good skin turgor. Neck: Full range of motion. Supple. Respiratory: Decreased lung sounds secondary to deposable stethoscope for isolation room. No bony chest wall tenderness. Cardiovascular: Slight Tachycardic heart rate. The heart has a regular rhythm without murmur. Lower extremities: No lower extremity edema. Distal pulses are easily palpated. No calf tenderness to palpation. Gastrointestinal: The abdomen is soft, nontender and nondistended with active bowel sounds. Psychiatric: Lucid and oriented. Memory intact. Neurologic: No focal deficits. Speech is clear. No facial drooping. Const: General: cooperative and no acute distress HENMT: Head: normal to inspection Eyes: General: appearance normal, both eyes and all related structures Neck: Neck: normal visual inspection Chest: Chest palpation & inspection: normal inspection of the chest Resp: Effort & Inspection: normal respiratory effort Cardio: Jugular venous distension: no JVD Rate: regular rate GI: Inspection: normal to inspection and non-distended Objective Data Vital Signs Vital Signs: Vital Signs - 24 hr 02/26/21 18:00 02/26/21 20:00 02/26/21 20:54 Temperature 97.8 F Pulse Rate 97 70 81 Respiratory Rate 21 H 19 16 Blood Pressure 113/82 119/79 Pulse Oximetry 100 100 02/26/21 21:00 02/26/21 21:02 02/26/21 22:00 Temperature Pulse Rate 79 72 Respiratory Rate 26 H 21 H Blood Pressure 128/81 Pulse Oximetry 100 100 02/27/21 00:00 02/27/21 01:01 02/27/21 01:04 Temperature 97.4 F L Pulse Rate 68 69 65 Respiratory Rate 14 27 H Blood Pressure 122/78 Pulse Oximetry 97 97 02/27/21 01:10 02/27/21 02:00 02/27/21 04:00 Temperature 97.2 F L 97.7 F Pulse Rate 76 79 81 Respiratory Rate 26 H 20 20 Blood Pressure 105/67 99/68 L Pulse Oximetry 97 99 02/27/21 05:21 02/27/21 06:00 02/27/21 07:17 Temperature Pulse Rate 73 Respiratory Rate 18 Blood Pressure 101/75 Pulse Oximetry 97 100 99 02/27/21 07:18 02/27/21 08:00 02/27/21 08:38 Temperature 98.3 F Pulse Rate 77 102 H Respiratory Rate 13 22 H Blood Pressure 115/72 Pulse Oximetry 97 95 02/27/21 09:35 02/27/21 09:55 02/27/21 10:00 Temperature Pulse Rate 102 H 102 H 105 H Respiratory Rate 22 H 22 H 30 H Blood Pressure 125/79 Pulse Oximetry 97 97 93 02/27/21 10:42 02/27/21 12:00 02/27/21 13:12 Temperature 98.1 F Pulse Rate 102 H 103 H 94 Respiratory Rate 27 H 17 Blood Pressure 119/93 H Pulse Oximetry 97 96 02/27/21 13:13 02/27/21 14:00 02/27/21 15:06 Temperature 98.7 F Pulse
[2021-02-27 17:15] LABS: Glucose Point of Care 147 mg/dl (65-105)
[2021-02-27] MEDS: HYDROcodone/acetaminophen (*CRX) 5-325 MG TABLET 1 TAB PO (20:10)
[2021-02-27 22:21] LABS: Glucose Point of Care 146 mg/dl (65-105)
[2021-02-28] VITALS (32 sets, daily range): BP systolic 105–124; BP diastolic 71–90; PULSE 80–129; RESP 16–27; TEMP 36.4–37.4; O2SAT 91–100
[2021-02-28] MEDS: MORPHINE SULFATE (*CRX) 2 MG/ML INJ IV PUSH ×3 (00:13→11:56)
[2021-02-28] MEDS: IPRATROPIUM BR 0.02% INH SOLN 0.5 MG/2.5 ML VIAL INHALATION ×4 (02:18→21:32)
[2021-02-28] MEDS: ALBUTEROL SULFATE NEB 2.5 MG/0.5 ML INH INHALATION ×4 (02:18→21:32)
[2021-02-28 04:31] LABS: Hematocrit 28.2 % (37.0-47.0); Hemoglobin 9.6 g/dL (12.0-15.0); Mean Corpuscular Hemoglobin 30.6 pg (26-34); Mean Corpuscular Volume 89.8 fl (80-100); Mean Platelet Volume 8.9 fl (7.4-10.4); Platelet Count Result 156 k/mm3 (150-375); Red Blood Count 3.14 M/mm3 (4.2-5.4); Red Cell Distribution Width 13.3 % (11.5-14.5); White Blood Count 7.6 K/mm3 (4.5-10.0)
[2021-02-28 04:46] LABS: Anion Gap 6 mmol/L (8-16); Blood Urea Nitrogen 33 mg/dL (7-17); Calcium 9.2 mg/dL (8.4-10.2); Carbon Dioxide 23 mmol/L (22-30); Chloride 112 mmol/L (98-107); Estimated CRCL calculation 28 ml/min; Estimated Glomerular Filt Rate 48; Glucose 92 mg/dL (65-105); Magnesium 1.9 mg/dL (1.6-2.3); Potassium 3.8 mmol/L (3.4-5.0); Sodium 141 mmol/L (137-145)
[2021-02-28] MEDS: CENTRAL LINE FLUSH 10 ML IV PUSH ×3 (06:35→20:51)
--- NOTE | 2021-02-28 08:09 | WPDINTPN ---
Progress Note: A&P Assessment and Plan (1) Acute respiratory failure with hypoxia: Code(s): J96.01 - Acute respiratory failure with hypoxia Status: Acute Assessment and Plan: patient with acute failure likely COVID-19 pneumonia on chest x-ray, ? secondary bacterial pneumonia - increased oxygen requirements. requiring transferring to the ICU on 02/23/2021. - patient was placed on BiPAP 02/24, 08/04 currently on 40% FiO2. patient was transition to Airvo yesterday and tolerated well - since then patient has been on and off BiPAP an Airvo depending on her clinical symptoms on oxygen requirement. - Currently on BiPAP 50% FiO2. will transition her to Airvo and see how she tolerates. - will continue BiPAP p.r.n. and nightly - may need intubation if if worsens - chest x-ray shows no significant change in her bilateral infiltrates - Rocephin and azithromycin started 02/20. patient was switched to 02/23 to levofloxacin, cefepime, vancomycin. - all cultures have been negative and vancomycin and levofloxacin was discontinued. Continue cefepime at this time - continue bronchodilators - incentive spirometry - up in chair (2) Pneumonia due to COVID-19 virus: Code(s): U07.1 - COVID-19; J12.82 - Pneumonia due to coronavirus disease 2019 Status: Acute Assessment and Plan: patient with increased O2 requirements, elevated LDH, ferritin and CRP - SARS-CoV-2 PCR POSITIVE 02/22/2021 - SARS-CoV-2 PCR IgG antibody were nonreactive - total SARS-CoV-2 PCR antibodies were reactive ( according the lab this means that she could have had IgM antibodies positive) - continue dexamethasone and Remdesivir ( initiated on 02/23/2021) - Tocilizumab was considered and discussed with Pulmonary, but considering patient's recent chemotherapy, malignancy, recent UTI, possibility of secondary bacterial infection, and now being 1 week out of her symptoms, we decided not to take the risk. Her CRP is also not that high - continue droplet, airborne contact isolation/precautions - continue to trend inflammatory markers which are improving (3) Sepsis: Code(s): A41.9 - Sepsis, unspecified organism Status: Acute Assessment and Plan: leukopenia, tachycardia, hypotension, acute kidney injury on 02/23/2021 - lactic acid levels were normal, - blood pressures have improved - 02/20/2021 blood cultures negative x2 - 02/23/2021: blood culture negative x2 - 02/20/2021 urine culture: negative - 02/23/2021 urine culture negative (4) Bilateral pneumonia: Code(s): J18.9 - Pneumonia, unspecified organism Status: Acute Assessment and Plan: chest x-ray with bilateral infiltrates likely pneumonia - continue antibiotics as above - continue supplemental oxygen, bronchodilator (5) Generalized weakness: Code(s): R53.1 - Weakness Status: Acute Assessment and Plan: likely related infection, sepsis, hypotension - continue to monitor and PT OT (6) Urinary tract infection: Qualifiers: Hematuria presence: with hematuria Urinary tract infection type: site unspecified Qualified Code(s): N39.0 - Urinary tract infection, site not specified; R31.9 - Hematuria, unspecified Code(s): N39.0 - Urinary tract infection, site not specified Status: Acute Assessment and Plan: recent UTI, not treated optimally as she stop taking her antibiotics at home - patient complaining of chills, - urine cultures has been negative (7) GEE (acute kidney injury): Code(s): N17.9 - Acute kidney failure, unspecified Status: Acute Assessment and Plan: acute kidney injury likely related to hypotension, hypovolemia, infection, UTI - patient was given IV fluid bolus on presentation - continue monitor urine output, electrolytes and renal function - monitor BUN and creatinine stable at this time - conservative with IV fluids Additional Plan discussed with
--- NOTE | 2021-02-28 09:20 | PCPTNOTE ---
The patient treatment was not able to be completed on 02/27/2021. Will plan to continue treatment per plan of care.
[2021-02-28] MEDS: PANTOPRAZOLE SODIUM IV 40 MG VIAL IV PUSH (09:25)
[2021-02-28] MEDS: CYANOCOBALAMIN 1,000 MCG TABLET 1000 MCG PO (09:25)
[2021-02-28] MEDS: CHOLECALCIFEROL 1,000 UNITS TABLET 2000 UNITS PO (09:25)
[2021-02-28] MEDS: ENOXAPARIN 30 MG/0.3 ML SYRINGE SUB-Q (09:25)
[2021-02-28] MEDS: ASCORBIC ACID 500 MG TABLET PO (09:25)
[2021-02-28] MEDS: DEXAMETHASONE SOD PHOS INJ 4 MG/ML VIAL 6 MG IV PUSH (09:26)
--- NOTE | 2021-02-28 10:48 | PCDIET ---
Nutrition Follow-Up Complete: Nutrition Diagnosis: Inadequate oral intake related to UTI as evidenced by weight loss and decreased appetite. Nutrition Goal: Meet estimated nutritional needs. Goal in progress. Patient consumed 50% of dinner last night and RN planning to order patient breakfast tray. Recommend Ensure Enlive (350kcal, 20g protein) TID. Verbal order obtained. Recommend continuing regular diet, as tolerated. Last recorded weight is 51.4 kg which is stable with last review. -I/O. Bowel Motility: Last documented BM on 02/26/21 x 1. Labs Reviewed: Hgb (9.6), Hct (28.2), BUN (33), Cr (1.1) Meds Noted: Albuterol, Decadron, Vitamin B Complex, Vitamin C, Atrovent, Vitamin D, Maxipime, Protonix, Vitamin B12, Chloraseptic Additional Notes: No documented skin breakdown. Will continue to monitor with same goal. Nutrition Monitoring and Evaluation: Will monitor every 3 days.
[2021-02-28 12:00] LABS: Glucose Point of Care 90 mg/dl (65-105)
--- NOTE | 2021-02-28 14:56 | PM.IMPN ---
Progress Note: A&P Assessment and Plan (1) Sepsis: Code(s): A41.9 - Sepsis, unspecified organism Status: Acute Assessment and Plan: IV antibiotics IV fluids supportive care continue to monitor (2) Acute respiratory failure with hypoxia: Code(s): J96.01 - Acute respiratory failure with hypoxia Status: Acute Assessment and Plan: BiPAP support as needed. Will continue with oxygen. on high-flow nasal cannula Airvo (3) Bilateral pneumonia: Code(s): J18.9 - Pneumonia, unspecified organism Status: Acute Assessment and Plan: IV antibiotic Subjective Date/time seen: 02/28/21 14:56 Interval history: I feel much better Review of Systems Review of Systems: All systems reviewed & are unremarkable except as noted in HPI and below Exam Const: General: cooperative and no acute distress HENMT: Head: normal to inspection Eyes: General: appearance normal, both eyes and all related structures Neck: Neck: normal visual inspection Chest: Chest palpation & inspection: normal inspection of the chest Resp: Effort & Inspection: normal respiratory effort Cardio: Jugular venous distension: no JVD Rate: regular rate GI: Inspection: normal to inspection and non-distended Objective Data Vital Signs Vital Signs: Vital Signs - 24 hr 02/27/21 15:06 02/27/21 16:00 02/27/21 18:00 Temperature 98.8 F 98.6 F Pulse Rate 117 H 109 H 116 H Respiratory Rate 24 H 20 20 Blood Pressure 123/90 113/86 Pulse Oximetry 100 100 100 02/27/21 20:00 02/27/21 20:40 02/27/21 20:54 Temperature 98.6 F Pulse Rate 118 H 109 H 107 H Respiratory Rate 24 H 21 H 21 H Blood Pressure 109/78 Pulse Oximetry 96 95 02/27/21 22:00 02/27/21 22:04 02/28/21 00:00 Temperature 98.1 F 97.8 F Pulse Rate 102 H 102 H 87 Respiratory Rate 24 H 24 H Blood Pressure 111/81 112/82 Pulse Oximetry 92 96 02/28/21 00:08 02/28/21 02:00 02/28/21 02:18 Temperature 97.8 F Pulse Rate 82 80 96 Respiratory Rate 25 H Blood Pressure 109/80 Pulse Oximetry 98 96 95 02/28/21 02:21 02/28/21 02:32 02/28/21 04:00 Temperature 97.6 F Pulse Rate 96 90 93 Respiratory Rate 20 27 H 22 H Blood Pressure 123/86 Pulse Oximetry 97 02/28/21 06:00 02/28/21 08:00 02/28/21 08:17 Temperature 98.5 F Pulse Rate 92 118 H 116 H Respiratory Rate 21 H 24 H 22 H Blood Pressure 115/71 116/88 Pulse Oximetry 97 92 91 02/28/21 08:30 02/28/21 10:00 02/28/21 10:55 Temperature 99.1 F Pulse Rate 114 H 119 H Respiratory Rate 24 H 21 H Blood Pressure 117/90 Pulse Oximetry 92 99 98 02/28/21 12:00 02/28/21 14:02 Temperature 99.3 F Pulse Rate 124 H 119 H Respiratory Rate 22 H 20 Blood Pressure 109/71 Pulse Oximetry 98 98 Intake/Output Intake/Output: Intake & Output 02/25/21 02/26/21 02/27/21 02/28/21 23:59 23:59 23:59 23:59 Intake Total 650 550 660 370 Output Total 1025 1050 950 350 Balance -375 -500 -290 20 Meds/Results Medications: Active Medications Generic Name Dose Route Start Last Admin Trade Name Freq PRN Reason Stop Dose Admin Acetaminophen 650 mg 02/25/21 19:40 02/26/21 16:08 Acetaminophen Elixir 325 Mg/10.15 Ml Udc PO 650 mg Q4H PRN Administration Mild Pain (1-3) or Fever Hydrocodone Bitart/Acetaminophen 1 tab 02/26/21 10:25 02/27/21 20:10 Hydrocodone/Acetaminophen (*Crx) 5-325 Mg Tablet PO 1 tab Q4H PRN Administration Pain Rated 4-6 Albuterol 2.5 mg 02/21/21 08:35 02/28/21 14:02 Albuterol Sulfate Neb 2.5 Mg/0.5 Ml Inh INHALATION 2.5 mg Q6HRT BAN Administration Albuterol 2 puff 02/23/21 06:41 02/23/21 21:36 Albuterol Sulfate (*Sp) Inhaler INHALATION 2 puff QIDRT PRN Administration Shortness Of Breath Ascorbic Acid 500 mg 02/21/21 09:00 02/28/21 09:25 Ascorbic Acid 500 Mg Tablet PO 500 mg DAILY BAN Administration Cyanocobalamin 1,000 mcg 02/24/21 09:00 02/28/21 09:2
[2021-02-28 16:24] LABS: Glucose Point of Care 75 mg/dl (65-105)
[2021-02-28 16:24] LABS: Glucose Point of Care 23 mg/dl (65-105)
[2021-02-28 17:55] LABS: Glucose Point of Care 90 mg/dl (65-105)
--- NOTE | 2021-02-28 18:47 | PC.NURSE ---
Updated family on plan of care and patient condition.
[2021-02-28 21:01] LABS: Glucose Point of Care 176 mg/dl (65-105)
[2021-03-01] VITALS (24 sets, daily range): BP systolic 97–130; BP diastolic 70–91; PULSE 83–136; RESP 13–33; TEMP 36.6–37.3; O2SAT 90–100
[2021-03-01] MEDS: ALBUTEROL SULFATE NEB 2.5 MG/0.5 ML INH INHALATION ×4 (02:33→21:23)
[2021-03-01] MEDS: IPRATROPIUM BR 0.02% INH SOLN 0.5 MG/2.5 ML VIAL INHALATION ×4 (02:34→21:23)
[2021-03-01] MEDS: MORPHINE SULFATE (*CRX) 2 MG/ML INJ IV PUSH ×2 (03:30→11:36)
[2021-03-01 04:14] LABS: CRP 7.1 mg/dL (<1.0); Lactate Dehydrogenase 735 U/L (313-618)
[2021-03-01 04:45] LABS: D Dimer 0.92 ug/mL (<0.48)
[2021-03-01] MEDS: CENTRAL LINE FLUSH 10 ML IV PUSH ×3 (05:30→22:00)
[2021-03-01 07:41] LABS: Ferritin > 2000.00 ng/mL (11.1-264)
--- NOTE | 2021-03-01 09:22 | WPDINTPN ---
Progress Note: A&P Assessment and Plan (1) Acute respiratory failure with hypoxia: Code(s): J96.01 - Acute respiratory failure with hypoxia Status: Acute Assessment and Plan: patient with acute failure likely COVID-19 pneumonia on chest x-ray, ? secondary bacterial pneumonia - increased oxygen requirements. requiring transferring to the ICU on 02/23/2021. - patient was placed on BiPAP 02/24, 08/04 currently on 40% FiO2. patient was transition to Airvo yesterday and tolerated well - since then patient has been on and off BiPAP an Airvo depending on her clinical symptoms on oxygen requirement. - Currently on BiPAP 50% FiO2. will transition her to Airvo as tolerated - will continue BiPAP p.r.n. and nightly - may need intubation if if worsens - chest x-ray shows no significant change in her bilateral infiltrates - Rocephin and azithromycin started 02/20. patient was switched to 02/23 to levofloxacin, cefepime, vancomycin. - all cultures have been negative and vancomycin and levofloxacin was discontinued. Continue cefepime at this time - continue bronchodilators - incentive spirometry - up in chair as tolerated (2) Pneumonia due to COVID-19 virus: Code(s): U07.1 - COVID-19; J12.82 - Pneumonia due to coronavirus disease 2019 Status: Acute Assessment and Plan: patient with increased O2 requirements, elevated LDH, ferritin and CRP - SARS-CoV-2 PCR POSITIVE 02/22/2021 - SARS-CoV-2 PCR IgG antibody were nonreactive - total SARS-CoV-2 PCR antibodies were reactive ( according the lab this means that she could have had IgM antibodies positive) - continue dexamethasone and Remdesivir ( initiated on 02/23/2021) - continue droplet, airborne contact isolation/precautions - continue to trend inflammatory markers which are improving (3) Sepsis: Code(s): A41.9 - Sepsis, unspecified organism Status: Acute Assessment and Plan: leukopenia, tachycardia, hypotension, acute kidney injury on 02/23/2021 - lactic acid levels were normal, - blood pressures have improved - 02/20/2021 blood cultures negative x2 - 02/23/2021: blood culture negative x2 - 02/20/2021 urine culture: negative - 02/23/2021 urine culture negative (4) Bilateral pneumonia: Code(s): J18.9 - Pneumonia, unspecified organism Status: Acute Assessment and Plan: chest x-ray with bilateral infiltrates likely pneumonia - continue antibiotics as above - continue supplemental oxygen, bronchodilator (5) Generalized weakness: Code(s): R53.1 - Weakness Status: Acute Assessment and Plan: likely related infection, sepsis, hypotension - continue to monitor and PT OT (6) Urinary tract infection: Qualifiers: Hematuria presence: with hematuria Urinary tract infection type: site unspecified Qualified Code(s): N39.0 - Urinary tract infection, site not specified; R31.9 - Hematuria, unspecified Code(s): N39.0 - Urinary tract infection, site not specified Status: Acute Assessment and Plan: recent UTI, not treated optimally as she stop taking her antibiotics at home - patient complaining of chills, - urine cultures has been negative (7) GEE (acute kidney injury): Code(s): N17.9 - Acute kidney failure, unspecified Status: Acute Assessment and Plan: acute kidney injury likely related to hypotension, hypovolemia, infection, UTI - patient was given IV fluid bolus on presentation - continue monitor urine output, electrolytes and renal function - monitor BUN and creatinine stable at this time - conservative with IV fluids Additional Plan I have had multiple discussions with the patient regarding code status. she wishes to be full code although she does not understand the complexity and the severity of her disease. She at 1 time mentioned that she would like to go home with the ventilator so she can take care of her son. she told m
[2021-03-01] MEDS: ENOXAPARIN 30 MG/0.3 ML SYRINGE SUB-Q (09:30)
[2021-03-01] MEDS: PANTOPRAZOLE SODIUM IV 40 MG VIAL IV PUSH (09:30)
[2021-03-01] MEDS: DEXAMETHASONE SOD PHOS INJ 4 MG/ML VIAL 6 MG IV PUSH (09:31)
[2021-03-01] MEDS: CHOLECALCIFEROL 1,000 UNITS TABLET 2000 UNITS PO (09:32)
[2021-03-01] MEDS: ASCORBIC ACID 500 MG TABLET PO (09:32)
[2021-03-01] MEDS: CYANOCOBALAMIN 1,000 MCG TABLET 1000 MCG PO (09:32)
[2021-03-01 11:42] LABS: Glucose Point of Care 116 mg/dl (65-105)
--- NOTE | 2021-03-01 15:59 | PM.IMPN ---
Progress Note: A&P Assessment and Plan (1) Sepsis: Code(s): A41.9 - Sepsis, unspecified organism Status: Acute Assessment and Plan: LEVOFLOXACIN CEFEPIME AND VANC CULTURES NEGATIVE SO FAR (2) Acute respiratory failure with hypoxia: Code(s): J96.01 - Acute respiratory failure with hypoxia Status: Acute Assessment and Plan: BiPAP support as needed. on high-flow nasal cannula Airvo (3) Bilateral pneumonia: Code(s): J18.9 - Pneumonia, unspecified organism Status: Acute Assessment and Plan: CONTINUE LEVOFLOXACIN CEFEPIME AND VANC Subjective Date/time seen: 03/01/21 15:59 I DO NOT FEEL BETTER Interval history: Review of Systems Review of Systems: All systems reviewed & are unremarkable except as noted in HPI and below Exam Narrative: Exam Narrative: SITTING Const: General: cooperative, acute distress mild, ill appearing and other ( ON HIGH-FLOW NASAL CANNULA AIRVO 50%) Nutritional Appearance: average body habitus Orientation/consciousness: patient oriented x3 HENMT: Head: normal to inspection Ears: hearing grossly normal bilaterally Face and sinus: normal facial exam Eyes: General: appearance normal, both eyes and all related structures Pupils: Equal, round and reactive pupils present EOM: EOMs intact bilaterally Neck: Neck: normal visual inspection Thyroid: thyroid normal Lymphatic: no lymphadenopathy noted Chest: Chest palpation & inspection: normal inspection of the chest Resp: Auscultation: diminished lung sounds Cardio: Jugular venous distension: no JVD Rate: regular rate Rhythm: regular rhythm Heart sounds: S1 normal heart sound present and S2 normal heart sound present GI: Inspection: normal to inspection and non-distended GI Palp: Yes Soft to palpation and Yes No hepatosplenomegaly present : General: Yes deferred Skin: Rashes: no rashes Wounds: no wounds Neuro: General: patient oriented x3 and CN's II-XI intact bilaterally Cranial nerves: Yes CN's II-XII intact bilaterally and Yes Equal, round and reactive pupils present Cognition (Neuro): normal cognition Speech: normal speech Gait exam (Neuro): Normal gait present Motor exam (neuro): 5/5 motor strength present throughout Extrem: General: normal to inspection, full ROM, no joint enlargement and no pedal edema Objective Data Vital Signs Vital Signs: Vital Signs - 24 hr 02/28/21 16:00 02/28/21 18:00 02/28/21 20:00 Temperature 99.0 F 98.8 F Pulse Rate 96 112 H 129 H Respiratory Rate 21 H 24 H Blood Pressure 106/81 105/71 Pulse Oximetry 96 98 96 02/28/21 20:18 02/28/21 20:41 02/28/21 20:45 Temperature 98.3 F 98.4 F 98.4 F Pulse Rate 108 H 120 H 98 Respiratory Rate 18 21 H 18 Blood Pressure 124/88 Pulse Oximetry 96 100 99 02/28/21 21:00 02/28/21 21:15 02/28/21 21:30 Temperature 98.4 F 98.4 F 98.3 F Pulse Rate 96 93 96 Respiratory Rate 22 H 16 17 Blood Pressure Pulse Oximetry 100 99 99 02/28/21 21:32 02/28/21 21:43 02/28/21 21:45 Temperature 98.3 F Pulse Rate 92 97 80 Respiratory Rate 23 H 22 H 25 H Blood Pressure Pulse Oximetry 98 98 02/28/21 22:00 02/28/21 22:01 02/28/21 23:25 Temperature 98.2 F Pulse Rate 105 H 105 H 87 Respiratory Rate 21 H Blood Pressure 110/85 Pulse Oximetry 95 97 02/28/21 23:57 03/01/21 00:00 03/01/21 00:01 Temperature 97.8 F Pulse Rate 85 84 Respiratory Rate 22 H Blood Pressure 112/75 Pulse Oximetry 96 96 03/01/21 02:00 03/01/21 02:38 03/01/21 02:40 Temperature 98.0 F Pulse Rate 87 83 83 Respiratory Rate 24 H 17 Blood Pressure 115/78 Pulse Oximetry 94 97 03/01/21 02:50 03/01/21 04:00 03/01/21 06:00 Temperature 97.9 F 98.4 F Pulse Rate 84 112 H 118 H Respiratory Rate 22 H 22 H 22 H Blood Pressure 117/82 106/70 Pulse Oximetry 90 94 03/01/21 08:00 03/01/21 08:35 03/01/21 08:43 Temperature 98.4 F Pulse Rate 128 H 134 H 123 H Respiratory
[2021-03-01 18:04] LABS: Glucose Point of Care 162 mg/dl (65-105)
[2021-03-01 18:04] LABS: Glucose Point of Care 81 mg/dl (65-105)
[2021-03-01 21:34] LABS: Glucose Point of Care 157 mg/dl (65-105)
[2021-03-02] VITALS (26 sets, daily range): BP systolic 87–129; BP diastolic 66–89; PULSE 82–127; RESP 15–29; TEMP 36.6–37.4; O2SAT 90–100
--- NOTE | 2021-03-02 02:17 | PC.NURSE ---
At 0215 patient became tachypneic and tachycardic with oxygen saturations in the lower 80's. Patient anxious and on airvo 60L at 75% FiO2. Patient placed on Bipap with 100% FiO2. Current oxygen saturations at 98%. Will continue to monitor patient closely.
[2021-03-02] MEDS: IPRATROPIUM BR 0.02% INH SOLN 0.5 MG/2.5 ML VIAL INHALATION ×4 (03:03→19:55)
[2021-03-02] MEDS: ALBUTEROL SULFATE NEB 2.5 MG/0.5 ML INH INHALATION ×4 (03:27→19:54)
[2021-03-02] MEDS: ONDANSETRON INJ 4 MG/2 ML VIAL IV PUSH (04:46)
[2021-03-02] MEDS: MORPHINE SULFATE (*CRX) 2 MG/ML INJ IV PUSH (04:47)
[2021-03-02 05:14] LABS: Hematocrit 28.5 % (37.0-47.0); Hemoglobin 9.9 g/dL (12.0-15.0); Mean Corpuscular HGB Conc 34.7 g/dl (32-36); Mean Corpuscular Hemoglobin 30.6 pg (26-34); Mean Platelet Volume 9.4 fl (7.4-10.4); Platelet Count Result 164 k/mm3 (150-375); Red Blood Count 3.24 M/mm3 (4.2-5.4); Red Cell Distribution Width 13.1 % (11.5-14.5); White Blood Count 10.4 K/mm3 (4.5-10.0)
[2021-03-02 05:24] LABS: Alanine Aminotransferase 17 U/L (4-35); Albumin Level 3.1 g/dL (3.5-5.1); Alkaline Phosphatase 69 U/L (38-126); Anion Gap 6 mmol/L (8-16); Aspartate Amino Transferase 39 U/L (14-36); Bilirubin,Total 0.7 mg/dL (0.2-1.3); Blood Urea Nitrogen 31 mg/dL (7-17); Calcium 9.4 mg/dL (8.4-10.2); Carbon Dioxide 25 mmol/L (22-30); Chloride 110 mmol/L (98-107); Estimated CRCL calculation 30 ml/min; Estimated Glomerular Filt Rate 53; Glucose 82 mg/dL (65-105); Magnesium 1.8 mg/dL (1.6-2.3); Potassium 3.8 mmol/L (3.4-5.0); Sodium 141 mmol/L (137-145)
[2021-03-02] MEDS: CENTRAL LINE FLUSH 10 ML IV PUSH ×3 (06:17→21:02)
--- NOTE | 2021-03-02 08:30 | P.PNINT_ITS ---
Progress Note: A&P Assessment and Plan (1) Acute respiratory failure with hypoxia: Code(s): J96.01 - Acute respiratory failure with hypoxia Status: Acute Assessment and Plan: patient with acute failure likely COVID-19 pneumonia on chest x-ray, ? secondary bacterial pneumonia - increased oxygen requirements. requiring transferring to the ICU on 02/23/2021. - patient was placed on BiPAP 02/24, 08/04 currently on 40% FiO2. patient was transition to Airvo yesterday and tolerated well - since then patient has been on and off BiPAP an Airvo depending on her clinical symptoms on oxygen requirement. - Currently on BiPAP 50% FiO2. will transition her to Airvo as tolerated - will continue BiPAP p.r.n. and nightly - may need intubation if if worsens - chest x-ray shows no significant change in her bilateral infiltrates - Rocephin and azithromycin started 02/20. patient was switched to 02/23 to levofloxacin, cefepime, vancomycin. - all cultures have been negative and vancomycin and levofloxacin was discontinued. Continue cefepime to today - continue bronchodilators - incentive spirometry - up in chair as tolerated (2) Pneumonia due to COVID-19 virus: Code(s): U07.1 - COVID-19; J12.82 - Pneumonia due to coronavirus disease 2019 Status: Acute Assessment and Plan: patient with increased O2 requirements, elevated LDH, ferritin and CRP - SARS-CoV-2 PCR POSITIVE 02/22/2021 - SARS-CoV-2 PCR IgG antibody were nonreactive - total SARS-CoV-2 PCR antibodies were reactive ( according the lab this means that she could have had IgM antibodies positive) - continue dexamethasone and Remdesivir ( initiated on 02/23/2021) - continue droplet, airborne contact isolation/precautions - continue to trend inflammatory markers which are improving (3) Sepsis: Code(s): A41.9 - Sepsis, unspecified organism Status: Acute Assessment and Plan: leukopenia, tachycardia, hypotension, acute kidney injury on 02/23/2021 - lactic acid levels were normal, - blood pressures have improved - 02/20/2021 blood cultures negative x2 - 02/23/2021: blood culture negative x2 - 02/20/2021 urine culture: negative - 02/23/2021 urine culture negative (4) Bilateral pneumonia: Code(s): J18.9 - Pneumonia, unspecified organism Status: Acute Assessment and Plan: chest x-ray with bilateral infiltrates likely pneumonia - continue antibiotics as above - continue supplemental oxygen, bronchodilator (5) Generalized weakness: Code(s): R53.1 - Weakness Status: Acute Assessment and Plan: likely related infection, sepsis, hypotension - continue to monitor and PT OT (6) Urinary tract infection: Qualifiers: Hematuria presence: with hematuria Urinary tract infection type: site unspecified Qualified Code(s): N39.0 - Urinary tract infection, site not specified; R31.9 - Hematuria, unspecified Code(s): N39.0 - Urinary tract infection, site not specified Status: Acute Assessment and Plan: recent UTI, not treated optimally as she stop taking her antibiotics at home - patient complaining of chills, - urine cultures has been negative (7) GEE (acute kidney injury): Code(s): N17.9 - Acute kidney failure, unspecified Status: Acute Assessment and Plan: acute kidney injury likely related to hypotension, hypovolemia, infection, UTI - patient was given IV fluid bolus on presentation - continue monitor urine output, electrolytes and renal function - monitor BUN and creatinine stable at this time
[2021-03-02] MEDS: VITAMIN B COMPLEX CAPSULE 1 CAP PO (10:12)
[2021-03-02] MEDS: ASCORBIC ACID 500 MG TABLET PO (10:12)
[2021-03-02] MEDS: DEXAMETHASONE SOD PHOS INJ 4 MG/ML VIAL 6 MG IV PUSH (10:13)
[2021-03-02] MEDS: CHOLECALCIFEROL 1,000 UNITS TABLET 2000 UNITS PO (10:13)
[2021-03-02] MEDS: ENOXAPARIN 30 MG/0.3 ML SYRINGE SUB-Q (10:13)
[2021-03-02] MEDS: CYANOCOBALAMIN 1,000 MCG TABLET 1000 MCG PO (10:14)
[2021-03-02] MEDS: PANTOPRAZOLE SODIUM IV 40 MG VIAL IV PUSH (10:14)
[2021-03-02] MEDS: ACETAMINOPHEN ELIXIR 325 MG/10.15 ML UDC 650 MG PO ×2 (11:15→22:21)
--- NOTE | 2021-03-02 14:19 | PM.IMPN ---
Progress Note: A&P Assessment and Plan (1) Sepsis: Code(s): A41.9 - Sepsis, unspecified organism Status: Acute Assessment and Plan: LEVOFLOXACIN CEFEPIME AND VANC CULTURES NEGATIVE SO FAR (2) Acute respiratory failure with hypoxia: Code(s): J96.01 - Acute respiratory failure with hypoxia Status: Acute Assessment and Plan: BiPAP support as needed. 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: General: cooperative, acute distress mild, ill appearing and other ( ON HIGH-FLOW NASAL CANNULA AIRVO 50%) Nutritional Appearance: average body habitus Orientation/consciousness: patient oriented x3 HENMT: Head: normal to inspection Ears: hearing grossly normal bilaterally Face and sinus: normal facial exam Eyes: General: appearance normal, both eyes and all related structures Pupils: Equal, round and reactive pupils present EOM: EOMs intact bilaterally Neck: Neck: normal visual inspection Thyroid: thyroid normal Lymphatic: no lymphadenopathy noted Chest: Chest palpation & inspection: normal inspection of the chest Resp: Effort & Inspection: normal respiratory effort Auscultation: diminished lung sounds Cardio: Jugular venous distension: no JVD Rate: regular rate Rhythm: regular rhythm Heart sounds: S1 normal heart sound present and S2 normal heart sound present GI: Inspection: normal to inspection and non-distended : General: Yes deferred Skin: Rashes: no rashes Wounds: no wounds Neuro: General: patient oriented x3 and CN's II-XI intact bilaterally Cranial nerves: Yes CN's II-XII intact bilaterally and Yes Equal, round and reactive pupils present Cognition (Neuro): normal cognition Speech: normal speech Gait exam (Neuro): Normal gait present Motor exam (neuro): 5/5 motor strength present throughout Extrem: General: normal to inspection, full ROM, no joint enlargement and no pedal edema Objective Data Vital Signs Vital Signs: Vital Signs - 24 hr 03/01/21 16:00 03/01/21 18:00 03/01/21 20:00 Temperature 99.2 F 99.0 F 98.5 F Pulse Rate 133 H 107 H 93 Respiratory Rate 29 H 20 20 Blood Pressure 100/75 116/86 130/86 Pulse Oximetry 98 99 94 03/01/21 21:23 03/01/21 21:25 03/01/21 21:36 Temperature Pulse Rate 102 H 106 H 98 Respiratory Rate 26 H 19 Blood Pressure Pulse Oximetry 94 03/01/21 22:00 03/01/21 22:45 03/02/21 00:00 Temperature 98.2 F 97.9 F Pulse Rate 85 93 91 Respiratory Rate 16 23 H 21 H Blood Pressure 125/90 121/87 Pulse Oximetry 95 94 91 03/02/21 02:00 03/02/21 02:17 03/02/21 02:20 Temperature 97.8 F Pulse Rate 105 H 91 Respiratory Rate 23 H Blood Pressure 129/86 Pulse Oximetry 92 97 98 03/02/21 02:23 03/02/21 02:28 03/02/21 03:03 Temperature Pulse Rate 92 108 H Respiratory Rate 29 H Blood Pressure Pulse Oximetry 100 94 03/02/21 03:20 03/02/21 04:00 03/02/21 06:00 Temperature 98.0 F 98.4 F Pulse Rate 106 H 96 84 Respiratory Rate 22 H 21 H 18 Blood Pressure 124/88 98/72 L Pulse Oximetry 97 95 03/02/21 07:59 03/02/21 08:00 03/02/21 08:06 Temperature 98.2 F Pulse Rate 98 99 99 Respiratory Rate 20 23 H 23 H Blood Pressure 104/73 Pulse Oximetry 91 03/02/21 10:00 03/02/21 12:00 03/02/21 13:51 Temperature 99.3 F Pulse Rate 120 H 117 H 84 Respiratory Rate 24 H 22 H 16 Blood Pressure 111/84 87/66 L Pulse Oximetry 90 92 Intake/Output Intake/Output: Intake & Output 02/27/21 02/28/21 03/01/21 03/02/21 23:59 23:59 23:5
[2021-03-02 17:09] LABS: Glucose Point of Care 145 mg/dl (65-105)
[2021-03-02 21:17] LABS: Glucose Point of Care 170 mg/dl (65-105)
[2021-03-03] VITALS (26 sets, daily range): BP systolic 90–143; BP diastolic 54–84; PULSE 78–128; RESP 15–32; TEMP 36.5–37.6; O2SAT 90–99
[2021-03-03] MEDS: ALBUTEROL SULFATE NEB 2.5 MG/0.5 ML INH INHALATION ×4 (02:49→20:40)
[2021-03-03] MEDS: IPRATROPIUM BR 0.02% INH SOLN 0.5 MG/2.5 ML VIAL INHALATION ×4 (02:49→20:41)
[2021-03-03] MEDS: MORPHINE SULFATE (*CRX) 2 MG/ML INJ IV PUSH (02:52)
[2021-03-03] MEDS: CENTRAL LINE FLUSH 10 ML IV PUSH ×3 (06:08→20:59)
[2021-03-03 06:25] LABS: Hematocrit 27.6 % (37.0-47.0); Hemoglobin 9.4 g/dL (12.0-15.0); Mean Corpuscular HGB Conc 34.1 g/dl (32-36); Mean Corpuscular Hemoglobin 30.6 pg (26-34); Mean Corpuscular Volume 89.9 fl (80-100); Mean Platelet Volume 9.1 fl (7.4-10.4); Platelet Count Result 132 k/mm3 (150-375); Red Blood Count 3.07 M/mm3 (4.2-5.4); Red Cell Distribution Width 13.6 % (11.5-14.5); White Blood Count 9.5 K/mm3 (4.5-10.0)
[2021-03-03 06:39] LABS: D Dimer 1.05 ug/mL (<0.48)
[2021-03-03 06:45] LABS: Alanine Aminotransferase 18 U/L (4-35); Alkaline Phosphatase 64 U/L (38-126); Anion Gap 6 mmol/L (8-16); Aspartate Amino Transferase 32 U/L (14-36); Bilirubin,Total 0.6 mg/dL (0.2-1.3); Blood Urea Nitrogen 33 mg/dL (7-17); CRP 6.2 mg/dL (<1.0); Calcium 9.1 mg/dL (8.4-10.2); Carbon Dioxide 27 mmol/L (22-30); Chloride 107 mmol/L (98-107); Estimated CRCL calculation 30 ml/min; Estimated Glomerular Filt Rate 53; Glucose 80 mg/dL (65-105); Lactate Dehydrogenase 644 U/L (313-618); Magnesium 1.8 mg/dL (1.6-2.3); Potassium 3.6 mmol/L (3.4-5.0); Sodium 140 mmol/L (137-145)
--- NOTE | 2021-03-03 08:22 | WPDINTPN ---
Progress Note: A&P Assessment and Plan (1) Acute respiratory failure with hypoxia: Code(s): J96.01 - Acute respiratory failure with hypoxia Status: Acute Assessment and Plan: patient with acute failure likely COVID-19 pneumonia on chest x-ray, ? secondary bacterial pneumonia - increased oxygen requirements. requiring transferring to the ICU on 02/23/2021. - patient was placed on BiPAP 02/24, since then patient has been mostly doing air Will during the day and BiPAP at night with intermittently requiring BiPAP during the day - chest x-ray shows persistent diffuse lung disease and today's x-ray also shows some pneumomediastinum - she is not on very high pressure on BiPAP as settings are /. will use BiPAP as needed - although she has been stable for many days she still may need intubation if worsens - Rocephin and azithromycin started 02/20. patient was switched to 02/23 to levofloxacin, cefepime, vancomycin. - all cultures have been negative and vancomycin and levofloxacin was discontinued. she has completed a 10 day course antibiotics and cefepime was discontinued - continue bronchodilators - incentive spirometry - up in chair as tolerated (2) Pneumonia due to COVID-19 virus: Code(s): U07.1 - COVID-19; J12.82 - Pneumonia due to coronavirus disease 2019 Status: Acute Assessment and Plan: patient with increased O2 requirements, elevated LDH, ferritin and CRP - SARS-CoV-2 PCR POSITIVE 02/22/2021 - SARS-CoV-2 PCR IgG antibody were nonreactive - total SARS-CoV-2 PCR antibodies were reactive ( according the lab this means that she could have had IgM antibodies positive) - continue dexamethasone and Remdesivir ( initiated on 02/23/2021) - continue droplet, airborne contact isolation/precautions - continue to trend inflammatory markers which are improving (3) Sepsis: Code(s): A41.9 - Sepsis, unspecified organism Status: Acute Assessment and Plan: leukopenia, tachycardia, hypotension, acute kidney injury on 02/23/2021 - lactic acid levels were normal, - blood pressures have improved - 02/20/2021 blood cultures negative x2 - 02/23/2021: blood culture negative x2 - 02/20/2021 urine culture: negative - 02/23/2021 urine culture negative (4) Bilateral pneumonia: Code(s): J18.9 - Pneumonia, unspecified organism Status: Acute Assessment and Plan: chest x-ray with bilateral infiltrates likely pneumonia - continue antibiotics as above - continue supplemental oxygen, bronchodilator (5) Generalized weakness: Code(s): R53.1 - Weakness Status: Acute Assessment and Plan: likely related infection, sepsis, hypotension - continue to monitor and PT OT (6) Urinary tract infection: Qualifiers: Hematuria presence: with hematuria Urinary tract infection type: site unspecified Qualified Code(s): N39.0 - Urinary tract infection, site not specified; R31.9 - Hematuria, unspecified Code(s): N39.0 - Urinary tract infection, site not specified Status: Acute Assessment and Plan: recent UTI, not treated optimally as she stop taking her antibiotics at home - patient complaining of chills, - urine cultures has been negative (7) GEE (acute kidney injury): Code(s): N17.9 - Acute kidney failure, unspecified Status: Acute Assessment and Plan: acute kidney injury likely related to hypotension, hypovolemia, infection, UTI - patient was given IV fluid bolus on presentation - continue monitor urine output, electrolytes and renal function - monitor BUN and creatinine stable at this time - conservative with IV fluids (8) Pneumomediastinum: Code(s): J98.2 - Interstitial emphysema Status: Acute Assessment and Plan: 7/5 a.m. routine chest x-ray showed development of pneumomediastinum likely from positive pressure ventilation with BiPAP. continue Airvo and use Bipap as
[2021-03-03] MEDS: CHOLECALCIFEROL 1,000 UNITS TABLET 2000 UNITS PO (08:43)
[2021-03-03] MEDS: DEXAMETHASONE SOD PHOS INJ 4 MG/ML VIAL 6 MG IV PUSH (08:44)
[2021-03-03] MEDS: CYANOCOBALAMIN 1,000 MCG TABLET 1000 MCG PO (08:44)
[2021-03-03] MEDS: PANTOPRAZOLE SODIUM IV 40 MG VIAL IV PUSH (08:44)
[2021-03-03 09:53] LABS: Glucose Point of Care 69 mg/dl (65-105)
[2021-03-03 09:54] LABS: Ferritin > 2000.00 ng/mL (11.1-264)
[2021-03-03] MEDS: ENOXAPARIN 40 MG/0.4 ML SYRINGE SUB-Q (10:26)
[2021-03-03] MEDS: POTASSIUM CHLORIDE 20 MEQ PACKET (FOR LIQUID) 40 MEQ PO (10:27)
[2021-03-03] MEDS: ACETAMINOPHEN ELIXIR 325 MG/10.15 ML UDC 650 MG PO (10:28)
--- NOTE | 2021-03-03 10:31 | PCDIET ---
Nutrition Follow-Up Complete: Nutrition Diagnosis: Inadequate oral intake related to UTI as evidenced by weight loss and decreased appetite. Nutrition Goal: Meet estimated nutritional needs Goal in progress. Patient has consumed an average of 35% of recorded meals since 02/28/21. Does eat up to 50% of meals when not on bipap. Continues on regular diet with Ensure Enlive TID which she is accepting, at least in part. Last recorded weight is 49.1 kg which is down from last review. -I/O. Bowel Motility: Last documented BM on 03/01/21, per GI assessment. Labs Reviewed: RBC (3.07), Hgb (9.4), Hct (27.6), BUN (33), Alb (3.0) Meds Noted: Albuterol, Vitamin C, Vitamin B12, Decadron, Novolog, Atrovent, Morphine, Zofran, Protonix, Vitamin B Complex, Vitamin D, KCl Additional Notes: Patient now on airvo with bipap prn. No documented skin breakdown. RN encouraging intake. Will continue to monitor with same goal. Nutrition Monitoring and Evaluation: Will monitor every 3 days.
--- NOTE | 2021-03-03 11:14 | PM.IMHP ---
H&P: HPI History of Present Illness Date/Time: 03/03/21 11:14 Review of Systems Review of Systems: All systems reviewed & are unremarkable except as noted in HPI and below ROS unobtainable: Yes unobtainable due to medical condition [facility] Past Medical History Medical History (Updated 03/03/21 @ 08:28 by Madan Lincoln MD) Anxiety Arthritis History of kidney stones Hyperlipidemia Hypertension Non-Hodgkins lymphoma (09/2017) Status post Rituxan, vincristine, doxorubicin, Cytoxan. 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 Clinically in remission as of 12/23/2020 with PET-CT showing no evidence of recurrent disease. Patient of Dr. Des Peoples at [facility] in [place]. Surgical History Surgical History (Updated 02/20/21 @ 18:17 by Autumn Gross PA-C) History of appendectomy (1979) History of back surgery (1974) History of biopsy of bladder (05/2020) History of carpal tunnel release (1999) History of colonoscopy with polypectomy (02/14/15) Per Dr. Alvarado. Polyp removed, repeat in 5 yrs. History of hemorrhoidectomy (1959) History of neck surgery (2001) Status post cataract extraction of both eyes with insertion of intraocular lens Family History Family History Sibling Chronic obstructive pulmonary disease Mother Congestive heart failure Social History Social History (Updated 02/20/21 @ 18:17 by Autumn Gross PA-C) Social History: Surrogate decision maker: Peg and Maria Teresa Donnelly (nieces). Code status: Full code. Smoking status: Never smoker Second hand tobacco smoke exposure: No Alcohol intake: never Substance use: never Substance use type: does not use Additional living arrangements comments: The patient lives in [place] with her son, Kelvin. Additional occupation/education comments: Retired. Spiritual care concerns: No Meds Home Medications and Allergies Home Medications Medication Instructions Recorded Confirmed Type ascorbic acid (vitamin C) 500 mg PO DAILY 06/19/19 02/20/21 History vitamin B complex 1 cap PO DAILY 06/19/19 02/20/21 History atenolol 25 mg tablet 25 mg PO QAM #90 tablet 12/19/20 02/20/21 Rx cholecalciferol (vitamin D3) 50 50 mcg PO DAILY 12/30/20 02/20/21 History mcg (2,000 unit) capsule Allergies Allergy/AdvReac Type Severity Reaction Status Date / Time Mtzaxob-Uvn-Fko Reductase AdvReac Unknown Muscle pain Verified 02/20/21 15:56 Inhibitor Vital Signs Vital Signs - 24 hr 03/02/21 12:00 03/02/21 13:51 03/02/21 14:00 Temperature 99.3 F Pulse Rate 127 H 84 120 H Respiratory Rate 22 H 16 15 Blood Pressure 87/66 L 103/75 Pulse Oximetry 92 94 03/02/21 16:00 03/02/21 18:00 03/02/21 20:00 Temperature 98.3 F 98.7 F Pulse Rate 84 92 118 H Respiratory Rate 26 H 20 24 H Blood Pressure 107/75 112/82 127/89 Pulse Oximetry 94 97 95 03/02/21 20:05 03/02/21 20:07 03/02/21 20:38 Temperature Pulse Rate 106 H 118 H 118 H Respiratory Rate 17 17 21 H Blood Pressure Pulse Oximetry 95 03/02/21 22:00 03/02/21 22:21 03/02/21 23:21 Temperature 98.6 F 98.3 F Pulse Rate 91 94 Respiratory Rate 21 H 28 H Blood Pressure 112/82 Pulse Oximetry 98 93 03/03/21 00:00 03/03/21 02:00 03/03/21 02:44 Temperature 98.1 F 98.1 F Pulse Rate 82 89 90 Respiratory Rate 15 29 H 25 H Blood Pressure 97/75 L 102/78 Pulse Oximetry 96 94 93 03/03/21 02:46 03/03/21 02:51 03/03/21 02:54 Temperature Pulse Rate 95 78 Respiratory Rate 25 H 24 H Blood Pressure 117/84 Pulse Oximetry 03/03/21 04:00 03/03/21 05:07 03/03/21 06:00 Temperature 97.7 F 98.1 F Pulse Rate 85 89 122 H Respiratory Rate 18 16 22 H Blood Pressure 97/65 L 110/54 L Pulse Oximetry 92 93 94 03/03/21 07:57 03/03/21 07:58 03/03/21 08:00 Temperature Pulse R
--- NOTE | 2021-03-03 11:17 | PM.IMPN ---
Progress Note: A&P Assessment and Plan (1) Sepsis: Code(s): A41.9 - Sepsis, unspecified organism Status: Acute Assessment and Plan: RECEIVED SEVERAL DAYS OF [employer] NOW DISCONTINUED CULTURES NEGATIVE SO FAR (2) Acute respiratory failure with hypoxia: Code(s): J96.01 - Acute respiratory failure with hypoxia Status: Acute Assessment and Plan: BiPAP support as needed. on high-flow nasal cannula Airvo SUPPORTIVE CARE (3) Bilateral pneumonia: Code(s): J18.9 - Pneumonia, unspecified organism Status: Acute Assessment and Plan: DISCONTINUED LEVOFLOXACIN CEFEPIME AND VANC ON REMDESIVIR AND DEXAMETHASONE FOR COVID-19 PNEUMONIA (4) Pneumomediastinum: Code(s): J98.2 - Interstitial emphysema Status: Acute Assessment and Plan: SUPPORTIVE CARE CONTINUE TO MONITOR Subjective Date/time seen: 03/03/21 11:17 Interval history: THE PATIENT HAS DEVELOPED PNEUMOMEDIASTINUM Review of Systems Review of Systems: Narrative: EXAM LIMITED TO INSPECTION AND TELEMETRY MONITORING ROS unobtainable: Yes unobtainable due to medical condition Exam Narrative: Exam Narrative: SITTING IN RECLINER Const: General: acute distress mild, ill appearing and other ( ON HIGH-FLOW NASAL CANNULA AIRVO 50%) Nutritional Appearance: average body habitus Orientation/consciousness: oriented to person, oriented to place, oriented to time and patient oriented x3 HENMT: Head: normal to inspection Ears: hearing grossly normal bilaterally Face and sinus: normal facial exam Mouth: Yes Normal oral and palatal mucosa present and Yes dry mucous membranes Throat: tonsils absent Eyes: General: appearance normal, both eyes and all related structures Sclera: sclerae normal Pupils: Equal, round and reactive pupils present EOM: EOMs intact bilaterally Neck: Neck: normal visual inspection and supple Thyroid: thyroid normal Lymphatic: no lymphadenopathy noted Chest: Chest palpation & inspection: normal inspection of the chest Resp: Effort & Inspection: respiratory distress ( TACHYPNEIC) Auscultation: rales Cardio: Jugular venous distension: no JVD Rate: regular rate and tachycardic Rhythm: regular rhythm Heart sounds: S1 normal heart sound present and S2 normal heart sound present GI: Inspection: normal to inspection : General: Yes deferred Urinary Catheter: Urinary Catheter: patent and draining and urine clear Skin: General skin exam: normal color and no rashes or lesions noted Rashes: no rashes Wounds: no wounds Neuro: General: oriented to person, oriented to place, oriented to time, patient oriented x3 and CN's II-XI intact bilaterally Cranial nerves: Yes CN's II-XII intact bilaterally and Yes Equal, round and reactive pupils present Cognition (Neuro): normal cognition Speech: normal speech Gait exam (Neuro): Normal gait present Motor exam (neuro): 5/5 motor strength present throughout Extrem: General: normal to inspection, full ROM, no joint enlargement, no pedal edema, no edema and no pedal edema Psych: Appearance: grossly normal Mental Status: mental status grossly normal Affect: Anxious affect present Objective Data Vital Signs Vital Signs: Vital Signs - 24 hr 03/02/21 12:00 03/02/21 13:51 03/02/21 14:00 Temperature 99.3 F Pulse Rate 127 H 84 120 H Respiratory Rate 22 H 16 15 Blood Pressure 87/66 L 103/75 Pulse Oximetry 92 94 03/02/21 16:00 03/02/21 18:00 03/02/21 20:00 Temperature 98.3 F 98.7 F Pulse Rate 84 92 118 H Respiratory Rate 26 H 20 24 H Blood Pressure 107/75 112/82 127/89 Pulse Oximetry 94 97 95 03/02/21 20:05 03/02/21 20:07 03/02/21 20:38 Temperature Pulse Rate 106 H 118 H 118 H Respiratory Rate 17 17 21 H Blood Pressure Pulse Oximetry 95 03/02/21 22:00 03/02/21 22:21 03/02/21 23:21 Temperature 98.6 F 98.3 F Pulse Rate 91 94 Respiratory Rate 21 H 28 H Bloo
[2021-03-03 12:26] LABS: Glucose Point of Care 158 mg/dl (65-105)
[2021-03-03 18:23] LABS: Glucose Point of Care 140 mg/dl (65-105)
[2021-03-03] MEDS: HYDROcodone/acetaminophen (*CRX) 5-325 MG TABLET 1 TAB PO (18:52)
[2021-03-04] VITALS (32 sets, daily range): BP systolic 80–149; BP diastolic 48–107; PULSE 83–154; RESP 18–50; TEMP 36.7–37.7; O2SAT 85–99; BMI 20.6
[2021-03-04] MEDS: ALBUTEROL SULFATE NEB 2.5 MG/0.5 ML INH INHALATION ×4 (02:25→20:33)
[2021-03-04] MEDS: IPRATROPIUM BR 0.02% INH SOLN 0.5 MG/2.5 ML VIAL INHALATION ×4 (02:26→20:33)
[2021-03-04] MEDS: ACETAMINOPHEN ELIXIR 325 MG/10.15 ML UDC 650 MG PO (04:45)
[2021-03-04] MEDS: CENTRAL LINE FLUSH 10 ML IV PUSH ×3 (04:46→20:00)
[2021-03-04 05:10] LABS: Hematocrit 28.1 % (37.0-47.0); Hemoglobin 9.4 g/dL (12.0-15.0); Mean Corpuscular HGB Conc 33.5 g/dl (32-36); Mean Corpuscular Hemoglobin 30.4 pg (26-34); Mean Corpuscular Volume 90.9 fl (80-100); Mean Platelet Volume 9.8 fl (7.4-10.4); Platelet Count Result 147 k/mm3 (150-375); Red Blood Count 3.09 M/mm3 (4.2-5.4); Red Cell Distribution Width 13.8 % (11.5-14.5); White Blood Count 9.5 K/mm3 (4.5-10.0)
[2021-03-04 05:28] LABS: Alanine Aminotransferase 17 U/L (4-35); Albumin Level 2.9 g/dL (3.5-5.1); Alkaline Phosphatase 67 U/L (38-126); Anion Gap 5 mmol/L (8-16); Aspartate Amino Transferase 28 U/L (14-36); Bilirubin,Total 0.6 mg/dL (0.2-1.3); Blood Urea Nitrogen 35 mg/dL (7-17); Calcium 9.1 mg/dL (8.4-10.2); Carbon Dioxide 28 mmol/L (22-30); Chloride 108 mmol/L (98-107); Estimated CRCL calculation 34 ml/min; Estimated Glomerular Filt Rate 60; Glucose 77 mg/dL (65-105); Magnesium 1.8 mg/dL (1.6-2.3); Sodium 141 mmol/L (137-145)
[2021-03-04] MEDS: ETOMIDATE 20 MG/10 ML AMPUL IV PUSH (09:01)
[2021-03-04] MEDS: ROCURONIUM BROMIDE 50 MG/5 ML VIAL IV PUSH (09:03)
[2021-03-04] MEDS: LORazepam INJ (*CRX) 2 MG/ML VIAL (09:04)
--- NOTE | 2021-03-04 09:23 | WPDPROCEDUR ---
Procedures Intubation Intubation Date: 03/04/21 Intubation Time: 07:13 A pre-procedural Time-Out was completed immediately before starting the procedure and confirmed: Patient Identification, Site, Procedure, Patient Position and the Availability of Requisite Equipment: Yes Sedative: etomidate Paralytic: rocuronium Laryngoscope: fiber optic video scope Assist device used: fiber optic device ET tube size: 7.5 Tube secured depth (cm): 23 Tube secured location: lips Tube placement confirmation: visualized tube passing through cords, equal breath sounds bilaterally, no breath sounds over epigastrium and confirmation by capnometry Patient tolerated procedure: well Intubation complications: none
--- NOTE | 2021-03-04 09:29 | WPDINTPN ---
Progress Note: A&P Assessment and Plan (1) Acute respiratory failure with hypoxia: Code(s): J96.01 - Acute respiratory failure with hypoxia Status: Acute Assessment and Plan: patient with acute failure likely COVID-19 pneumonia on chest x-ray, ? secondary bacterial pneumonia - increased oxygen requirements. tachypnea, use of accessory muscles of respiration, hypoxia. patient has been on BiPAP, 12/5, 100% FiO2 Intubated on 03/03/2021. - placed patient on low tidal volume, peep of 8, 100% FiO2. Will check ABG and chest x-ray - chest x-ray shows persistent diffuse lung disease and today's x-ray with improved pneumomediastinum - status post Rocephin, azithromycin - she has also completed a 10 day course antibiotics with levofloxacin, cefepime and vancomycin - cultures have been negative - continue bronchodilators - incentive spirometry - will start sedation with fentanyl and Versed infusion (2) Pneumonia due to COVID-19 virus: Code(s): U07.1 - COVID-19; J12.82 - Pneumonia due to coronavirus disease 2019 Status: Acute Assessment and Plan: patient with increased O2 requirements, elevated LDH, ferritin and CRP - SARS-CoV-2 PCR POSITIVE 02/22/2021 - SARS-CoV-2 PCR IgG antibody were nonreactive - total SARS-CoV-2 PCR antibodies were reactive ( according the lab this means that she could have had IgM antibodies positive) - continue dexamethasone and status post Remdesivir ( initiated on 02/23/2021) - continue droplet, airborne contact isolation/precautions - continue to trend inflammatory markers which are improving (3) Sepsis: Code(s): A41.9 - Sepsis, unspecified organism Status: Acute Assessment and Plan: resolved leukopenia, tachycardia, hypotension, acute kidney injury on 02/23/2021 - lactic acid levels were normal, - blood pressures have improved - 02/20/2021 blood cultures negative x2 - 02/23/2021: blood culture negative x2 - 02/20/2021 urine culture: negative - 02/23/2021 urine culture negative (4) Bilateral pneumonia: Code(s): J18.9 - Pneumonia, unspecified organism Status: Acute Assessment and Plan: chest x-ray with bilateral infiltrates likely COVID-19 - status post antibiotics negative cultures - continue supplemental oxygen, bronchodilator (5) Generalized weakness: Code(s): R53.1 - Weakness Status: Acute Assessment and Plan: likely related infection, sepsis, hypotension, COVID-19 (6) Urinary tract infection: Qualifiers: Hematuria presence: with hematuria Urinary tract infection type: site unspecified Qualified Code(s): N39.0 - Urinary tract infection, site not specified; R31.9 - Hematuria, unspecified Code(s): N39.0 - Urinary tract infection, site not specified Status: Acute Assessment and Plan: recent UTI, not treated optimally as she stop taking her antibiotics at home - urine cultures has been negative (7) GEE (acute kidney injury): Code(s): N17.9 - Acute kidney failure, unspecified Status: Acute Assessment and Plan: resolved - acute kidney injury likely related to hypotension, hypovolemia, infection, UTI - patient was given IV fluid bolus on presentation - continue monitor urine output, electrolytes and renal function - monitor BUN and creatinine stable at this time (8) Pneumomediastinum: 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res, unspecified Status: Acute Assessment and Plan: DVT Prophylaxis - Lovenox SUP - PPI Additional Plan discussed with Peg, and updated her with patient's condition and plan of care. I discussed
[2021-03-04] MEDS: MIDAZOLAM 100MG/NS 100ML(*CRX) 100 MG/100 ML BAG (10:00)
[2021-03-04] MEDS: FENTANYL 2,500MCG/NS250ML(*CRX 2,500 MCG/250 ML BAG 15 MCG (10:01)
[2021-03-04 10:39] LABS: Alveolar/Arterial O2 Gradient 604.2 mmHg; Base Excess ABG -0.4 mEq/l (+/-2.0); Fractional Inspired Oxygen 100 %; HCO3 ABG 25.7 mEq/l (22.0-26.0); Oxygen Content ABG 15.2 %vol (16.0-22.0); Oxygen Saturation ABG 89.4 % (95.0-100.0); Oxyhemoglobin 89.4 % THb (90.0-100.0); PCO2 ABG 48.7 mmHg (35.0-45.0); PO2 ABG 60.1 mmHg (80.0-100.0); Total Hemoglobin 12.1 g/dL (12.0-18.0); pH ABG 7.341 (7.350-7.450)
[2021-03-04 10:40] LABS: Device VENTILATOR; Modified Allen's Test Pass; Site Drawn RIGHT RADIAL
[2021-03-04 10:41] LABS: Arterial Blood Gas PEEP 8 cmH2O; Arterial Blood Gas Tidal Volume 300 ml; Arterial Blood Gas Vent Mode ASSIST CONTROL; Arterial Blood Gas Ventilator rate 28 /MIN
--- NOTE | 2021-03-04 11:02 | PCDIET ---
Nutrition Follow-Up Complete: Nutrition Diagnosis: Inadequate oral intake related to UTI as evidenced by weight loss and decreased appetite. Nutrition Goal: Meet estimated nutritional needs Goal in progress. Patient intubated this morning with MD order to start tube feedings. Recommend Vital 1.2 at goal of 40mL/hr which will provide 1056kcal, 66g protein and 713mL free water over 22 hours/day. MD starting Propofol; will recommend adjusting tube feeding rate, as needed. Last recorded weight is 49.5 kg which is stable with last review. Bowel Motility: +BM today. Labs Reviewed: RBC (3.09), Hgb (9.4), Hct (28.1), BUN (35), Alb (2.9) Meds Noted: Vitamin D, Protonix, Vitamin B Complex, Kismet, Tylenol, Albuterol, Vitamin C, Vitamin B12, Decadron, Novolog, Atrovent, Morphine Additional Notes: No documented skin breakdown. Patient consumed 50-75% of meals on 03/03/21 with some Ensure. Will continue to monitor with same goal. Nutrition Monitoring and Evaluation: Follow up every Wednesday/Wednesday. Follow daily in ICU rounds.
[2021-03-04] MEDS: PROPOFOL IV EMULSION 100 ML 2.97 MG IV CONT (11:18)
[2021-03-04] MEDS: ENOXAPARIN 40 MG/0.4 ML SYRINGE SUB-Q (11:25)
[2021-03-04] MEDS: DEXAMETHASONE SOD PHOS INJ 4 MG/ML VIAL 6 MG IV PUSH (11:26)
[2021-03-04] MEDS: PANTOPRAZOLE SODIUM IV 40 MG VIAL IV PUSH (11:26)
[2021-03-04 11:35] LABS: Glucose Point of Care 118 mg/dl (65-105)
--- NOTE | 2021-03-04 11:45 | PCPTNOTE ---
PT on hold due to change in medical status. Patient intubated this A.M. due to decreased SPo2. PT will hold until further orders are received.
--- NOTE | 2021-03-04 14:40 | PCOTNOTE ---
Hold OT as patient had decline in medical status and was intubated this AM. Will continue therapy services when medically stable and appropriate.
--- NOTE | 2021-03-04 16:25 | PM.IMPN ---
Progress Note: A&P Assessment and Plan (1) Sepsis: Code(s): A41.9 - Sepsis, unspecified organism Status: Acute Assessment and Plan: RECEIVED SEVERAL DAYS OF [employer] C[employer]AGE NOW DISCONTINUED CULTURES NEGATIVE SO FAR (2) Acute respiratory failure with hypoxia: Code(s): J96.01 - Acute respiratory failure with hypoxia Status: Acute Assessment and Plan: ON VENTILATOR SUPPORT (3) Bilateral pneumonia: Code(s): J18.9 - Pneumonia, unspecified organism Status: Acute Assessment and Plan: DISCONTINUED LEVOFLOXACIN CEFEPIME AND VANC ON REMDESIVIR AND DEXAMETHASONE FOR COVID-19 PNEUMONIA (4) Pneumomediastinum: Code(s): J98.2 - Interstitial emphysema Status: Acute Assessment and Plan: SUPPORTIVE CARE CONTINUE TO MONITOR Subjective Date/time seen: 03/04/21 16:25 ON VENTILATOR SUPPORT Interval history: PATIENT IS NOW ON VENTILATOR SUPPORT THE PATIENT HAS DEVELOPED PNEUMOMEDIASTINUM Review of Systems Review of Systems: ROS unobtainable: Yes unobtainable due to medical condition Exam Narrative: Exam Narrative: LAYING IN BED EXAM IS LIMITED TO INSPECTION AND TELEMETRY READINGS Const: General: ill appearing and other ( ON VENTILATOR SUPPORT) Nutritional Appearance: average body habitus HENMT: Head: normal to inspection General nose exam: Normal external nose present Face and sinus: normal facial exam Mouth: Yes other ( ET TUBE IN PLACE) Eyes: General: appearance normal, both eyes and all related structures Neck: Neck: normal visual inspection and supple Chest: Chest palpation & inspection: normal inspection of the chest Resp: Effort & Inspection: normal respiratory effort ( ON VENTILATOR SUPPORT) Cardio: Jugular venous distension: no JVD Rate: regular rate and tachycardic Rhythm: regular rhythm and other ( SEEN ON TELEMETRY) GI: Inspection: normal to inspection : General: Yes deferred Urinary Catheter: Urinary Catheter: patent and draining and urine clear Skin: General skin exam: normal color and no rashes or lesions noted Rashes: no rashes Wounds: no wounds Neuro: General: other ( SEDATED) Extrem: General: normal to inspection, full ROM, no joint enlargement, no pedal edema, no edema and no pedal edema Objective Data Vital Signs Vital Signs: Vital Signs - 24 hr 03/03/21 18:00 03/03/21 20:00 03/03/21 20:40 Temperature 98.7 F 98.8 F Pulse Rate 87 128 H 106 H Respiratory Rate 18 27 H 25 H Blood Pressure 104/76 143/78 H Pulse Oximetry 99 96 03/03/21 20:50 03/03/21 20:57 03/03/21 21:09 Temperature Pulse Rate 108 H 108 H Respiratory Rate 26 H 26 H Blood Pressure Pulse Oximetry 97 97 03/03/21 22:00 03/03/21 23:07 03/04/21 00:00 Temperature 98.8 F 98.3 F Pulse Rate 90 89 88 Respiratory Rate 20 20 24 H Blood Pressure 99/74 L 118/79 Pulse Oximetry 99 99 99 03/04/21 02:00 03/04/21 02:25 03/04/21 02:32 Temperature 98.4 F Pulse Rate 83 88 92 Respiratory Rate 18 20 20 Blood Pressure 100/80 Pulse Oximetry 98 03/04/21 02:37 03/04/21 03:28 03/04/21 04:00 Temperature 98.1 F Pulse Rate 92 86 Respiratory Rate 20 21 H Blood Pressure 114/79 Pulse Oximetry 94 98 96 03/04/21 06:00 03/04/21 07:57 03/04/21 08:00 Temperature 98.6 F 99.8 F H Pulse Rate 90 138 H 129 H Respiratory Rate 23 H 41 H 50 H Blood Pressure 116/87 149/107 H Pulse Oximetry 92 87 L 03/04/21 08:10 03/04/21 09:05 03/04/21 10:00 Temperature 99.8 F H Pulse Rate 140 H 149 H 126 H Respiratory Rate 31 H 26 H Blood Pressure 85/61 L Pulse Oximetry 97 91 03/04/21 10:01 03/04/21 11:18 03/04/21 11:21 Temperature Pulse Rate 154 H 135 H 135 H Respiratory Rate 29 H 32 H 33 H Blood Pressure Pulse Oximetry 03/04/21 11:41 03/04/21 12:00 03/04/21 14:00 Temperature Pulse Rate 133 H 117 H 115 H Respiratory Rate 29 H 29 H Blood Pressure 129/
[2021-03-04] MEDS: MINERAL OIL/WHITE PETROLATUM OINTMENT 1 APPLIC EACH EYE (20:00)
[2021-03-04] MEDS: PROPOFOL IV EMULSION 100 ML 5.94 MG IV CONT (22:11)
[2021-03-05] VITALS (52 sets, daily range): BP systolic 71–123; BP diastolic 56–88; PULSE 73–131; RESP 22–40; TEMP 36.8–38.8; O2SAT 86–100
[2021-03-05 00:38] LABS: Glucose Point of Care 123 mg/dl (65-105)
[2021-03-05] MEDS: ALBUTEROL SULFATE NEB 2.5 MG/0.5 ML INH INHALATION ×4 (02:14→20:41)
[2021-03-05] MEDS: IPRATROPIUM BR 0.02% INH SOLN 0.5 MG/2.5 ML VIAL INHALATION ×4 (02:14→20:41)
--- NOTE | 2021-03-05 04:17 | PC.NURSE ---
Pt's respiratory rate in the 40s, O2 sat dropped to 84%. FiO2 increased as well as sedation.
[2021-03-05 05:11] LABS: Alveolar/Arterial O2 Gradient 610.4 mmHg; Base Excess ABG 1.9 mEq/l (+/-2.0); Carboxyhemoglobin 0.2 % THb (0-2.0); Fractional Inspired Oxygen 100 %; HCO3 ABG 24.8 mEq/l (22.0-26.0); Methemoglobin ABG 0.2 %THb (0-1.5); Oxygen Content ABG 13.6 %vol (16.0-22.0); Oxygen Saturation ABG 95.6 % (95.0-100.0); Oxyhemoglobin 94.3 % THb (90.0-100.0); PCO2 ABG 32.4 mmHg (35.0-45.0); PO2 ABG 70.2 mmHg (80.0-100.0); Reduced Hemoglobin 5.3 %THb (0-5.0); Total Hemoglobin 10.2 g/dL (12.0-18.0)
[2021-03-05 05:12] LABS: pH ABG 7.501 (7.350-7.450)
[2021-03-05 05:13] LABS: Arterial Blood Gas Vent Mode CMV; Arterial Blood Gas Ventilator rate 28 /MIN; Device VENTILATOR; Modified Allen's Test Pass; Site Drawn RIGHT RADIAL
[2021-03-05 05:14] LABS: Arterial Blood Gas PEEP 8 cmH2O; Arterial Blood Gas Tidal Volume 300 ml
[2021-03-05] MEDS: CENTRAL LINE FLUSH 10 ML IV PUSH ×3 (05:34→21:02)
[2021-03-05 05:38] LABS: Hematocrit 27.4 % (37.0-47.0); Hemoglobin 9.1 g/dL (12.0-15.0); Mean Corpuscular HGB Conc 33.2 g/dl (32-36); Mean Corpuscular Hemoglobin 30.2 pg (26-34); Mean Platelet Volume 10.4 fl (7.4-10.4); Platelet Count Result 126 k/mm3 (150-375); Red Blood Count 3.01 M/mm3 (4.2-5.4); Red Cell Distribution Width 14.1 % (11.5-14.5); White Blood Count 9.8 K/mm3 (4.5-10.0)
[2021-03-05 05:46] LABS: D Dimer 1.89 ug/mL (<0.48)
[2021-03-05 06:05] LABS: Alanine Aminotransferase 19 U/L (4-35); Albumin Level 2.8 g/dL (3.5-5.1); Alkaline Phosphatase 61 U/L (38-126); Anion Gap 7 mmol/L (8-16); Aspartate Amino Transferase 32 U/L (14-36); Bilirubin,Total 0.6 mg/dL (0.2-1.3); Blood Urea Nitrogen 46 mg/dL (7-17); CRP 8.5 mg/dL (<1.0); Calcium 8.6 mg/dL (8.4-10.2); Carbon Dioxide 25 mmol/L (22-30); Chloride 105 mmol/L (98-107); Estimated CRCL calculation 30 ml/min; Estimated Glomerular Filt Rate 53; Glucose 112 mg/dL (65-105); Lactate Dehydrogenase 710 U/L (313-618); Magnesium 1.8 mg/dL (1.6-2.3); Phosphorus 2.5 mg/dL (2.5-4.5); Potassium 3.9 mmol/L (3.4-5.0); Sodium 137 mmol/L (137-145)
[2021-03-05 06:52] LABS: Triglycerides 820 mg/dL (<150)
[2021-03-05] MEDS: PANTOPRAZOLE SODIUM IV 40 MG VIAL IV PUSH (08:15)
[2021-03-05] MEDS: ENOXAPARIN 40 MG/0.4 ML SYRINGE SUB-Q (08:15)
[2021-03-05] MEDS: MINERAL OIL/WHITE PETROLATUM OINTMENT 1 APPLIC EACH EYE ×2 (08:16→21:02)
[2021-03-05] MEDS: MIDAZOLAM 100MG/NS 100ML(*CRX) 100 MG/100 ML BAG IV CONT ×2 (08:30→09:38)
[2021-03-05] MEDS: PROPOFOL IV EMULSION 100 ML 5.94 MG IV CONT (08:31)
[2021-03-05] MEDS: FENTANYL 2,500MCG/NS250ML(*CRX 2,500 MCG/250 ML BAG 15 MCG IV CONT (09:03)
[2021-03-05] MEDS: FENTANYL 2,500MCG/NS250ML(*CRX 2,500 MCG/250 ML BAG 20 MCG IV CONT (09:37)
[2021-03-05] MEDS: hetaSTARCH 6%/NACL 500 ML 250 ML IV CONT (10:24)
[2021-03-05 10:28] LABS: Ferritin > 2000.00 ng/mL (11.1-264)
--- NOTE | 2021-03-05 10:37 | PCFNICU ---
ICU Rounding Note: Patient receiving Vital 1.2 at 40mL/hr with 30mL water flush every 4 hours. Residuals 300mL and below. Last recorded weight is 51kg which is up from last review. I/O slightly negative. Bowel Motility: Last documented BM on 03/04/21 x 1. Labs Reviewed: RBC (3.01), Hgb (9.1), Hct (27.4), Glu (112), BUN (46), TG (820) Meds Noted: Albuterol, Fentanyl, Versed, Protonix, Novolog (not given) Additional Notes: Most vitamins on hold at present. Propofol has been stopped. No documented skin breakdown. Following daily in ICU rounds. Assessing/reassessing every Wednesday/Wednesday.
--- NOTE | 2021-03-05 12:36 | WPDINTPN ---
Progress Note: A&P Assessment and Plan (1) Acute respiratory failure with hypoxia: Code(s): J96.01 - Acute respiratory failure with hypoxia Status: Acute Assessment and Plan: patient with acute failure likely COVID-19 pneumonia on chest x-ray, ? secondary bacterial pneumonia - 03/04: increased oxygen requirements. tachypnea, use of accessory muscles of respiration, hypoxia. patient has been on BiPAP, 12/5, 100% FiO2 Intubated on 03/04/2021. - placed patient on low tidal volume, peep of 8, 80% FiO2. Will check ABG and chest x-ray, worsening subcutaneous emphysema, decreased PEEP to 5 and respiratory rate to 24 - patient still dyssynchronous with the ventilator, will start her on fentanyl and Versed infusion and discontinue propofol - status post Rocephin, azithromycin - she has also completed a 10 day course antibiotics with levofloxacin, cefepime and vancomycin - cultures have been negative - continue bronchodilators - incentive spirometry (2) Pneumonia due to COVID-19 virus: Code(s): U07.1 - COVID-19; J12.82 - Pneumonia due to coronavirus disease 2019 Status: Acute Assessment and Plan: patient with increased O2 requirements, elevated LDH, ferritin and CRP - SARS-CoV-2 PCR POSITIVE 02/22/2021 - SARS-CoV-2 PCR IgG antibody were nonreactive - total SARS-CoV-2 PCR antibodies were reactive ( according the lab this means that she could have had IgM antibodies positive) - continue dexamethasone and status post Remdesivir ( initiated on 02/23/2021) - continue droplet, airborne contact isolation/precautions - continue to trend inflammatory markers which are improving (3) Sepsis: Code(s): A41.9 - Sepsis, unspecified organism Status: Acute Assessment and Plan: resolved leukopenia, tachycardia, hypotension, acute kidney injury on 02/23/2021 - lactic acid levels were normal, - low blood pressures likely related to positive pressure ventilation and sedated medications. if blood pressures drop, will start from Levophed to maintain mean arterial pressures greater get 65 mmHg - 02/20/2021 blood cultures negative x2 - 02/23/2021: blood culture negative x2 - 02/20/2021 urine culture: negative - 02/23/2021 urine culture negative (4) Bilateral pneumonia: Code(s): J18.9 - Pneumonia, unspecified organism Status: Acute Assessment and Plan: chest x-ray with bilateral infiltrates likely COVID-19 - status post antibiotics negative cultures - continue supplemental oxygen, bronchodilator (5) Generalized weakness: Code(s): R53.1 - Weakness Status: Acute Assessment and Plan: likely related infection, sepsis, hypotension, COVID-19 (6) Urinary tract infection: Qualifiers: Hematuria presence: with hematuria Urinary tract infection type: site unspecified Qualified Code(s): N39.0 - Urinary tract infection, site not specified; R31.9 - Hematuria, unspecified Code(s): N39.0 - Urinary tract infection, site not specified Status: Acute Assessment and Plan: recent UTI, not treated optimally as she stop taking her antibiotics at home - urine cultures has been negative (7) GEE (acute kidney injury): Code(s): N17.9 - Acute kidney failure, unspecified Status: Acute Assessment and Plan: resolved - acute kidney injury likely related to hypotension, hypovolemia, infection, UTI - patient was given IV fluid bolus on presentation - continue monitor urine output, electrolytes and renal function - monitor BUN and creatinine stable at this time (8) Pneumomediastinum: 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
[2021-03-05 12:42] LABS: Glucose Point of Care 93 mg/dl (65-105)
[2021-03-05] MEDS: NOREPINEPHRINE 8 MG/D5W 250 ML 8 MG/250 ML BAG 9.38 MG IV CONT (13:32)
--- NOTE | 2021-03-05 16:03 | PCPTNOTE ---
PT on hold due to decline in medical status and pt intubated. Will resume therapy when medically stable.
--- NOTE | 2021-03-05 17:23 | PM.IMPN ---
Progress Note: A&P Assessment and Plan (1) Sepsis: Code(s): A41.9 - Sepsis, unspecified organism Status: Acute Assessment and Plan: RECEIVED SEVERAL DAYS OF [employer] COVERAGE NOW DISCONTINUED CULTURES NEGATIVE SO FAR (2) Acute respiratory failure with hypoxia: Code(s): J96.01 - Acute respiratory failure with hypoxia Status: Acute Assessment and Plan: ON VENTILATOR SUPPORT (3) Bilateral pneumonia: Code(s): J18.9 - Pneumonia, unspecified organism Status: Acute Assessment and Plan: DISCONTINUED LEVOFLOXACIN CEFEPIME AND VANC ON REMDESIVIR AND DEXAMETHASONE FOR COVID-19 PNEUMONIA (4) Pneumomediastinum: 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 Chest x-ray worsening this morning, With infiltrates as well as subcutaneous emphysema, no pneumothorax was seen. Urine output has been adequate, patient is afebrile. patient is sedated with propofol. Does not open her eyes or follow simple commands. Review of Systems Review of Systems: ROS unobtainable: Yes unobtainable due to medical condition Exam Narrative: Exam Narrative: LAYING IN BED EXAM IS LIMITED TO INSPECTION AND TELEMETRY READINGS Const: General: ill appearing and other ( ON VENTILATOR SUPPORT) Nutritional Appearance: average body habitus HENMT: Head: normal to inspection Ears: hearing grossly normal bilaterally General nose exam: Normal external nose present Face and sinus: normal facial exam Mouth: Yes other ( ET TUBE IN PLACE) Throat: tonsils absent Eyes: General: appearance normal, both eyes and all related structures Sclera: sclerae normal Pupils: Equal, round and reactive pupils present EOM: EOMs intact bilaterally Neck: Neck: normal visual inspection and supple Thyroid: thyroid normal Lymphatic: no lymphadenopathy noted Chest: Chest palpation & inspection: normal inspection of the chest Resp: Effort & Inspection: normal respiratory effort ( ON VENTILATOR SUPPORT) Auscultation: rales Cardio: Jugular venous distension: no JVD Rate: regular rate and tachycardic Rhythm: regular rhythm and other ( SEEN ON TELEMETRY) Heart sounds: S1 normal heart sound present and S2 normal heart sound present GI: Inspection: normal to inspection : General: Yes deferred Urinary Catheter: Urinary Catheter: patent and draining and urine clear Skin: General skin exam: normal color and no rashes or lesions noted Rashes: no rashes Wounds: no wounds Neuro: General: other ( SEDATED) Cranial nerves: Yes CN's II-XII intact bilaterally and Yes Equal, round and reactive pupils present Cognition (Neuro): normal cognition Speech: normal speech Gait exam (Neuro): Normal gait present Motor exam (neuro): 5/5 motor strength present throughout Extrem: General: normal to inspection, full ROM, no joint enlargement, no pedal edema, no edema and no pedal edema Psych: Appearance: grossly normal Mental Status: mental status grossly normal Affect: Anxious affect present Objective Data Vital Signs Vital Signs: Vital Signs - 24 hr 03/04/21 18:00 03/04/21 19:57 03/04/21 20:00 Temperature 98.4 F Pulse Rate 103 H 111 H 107 H Respiratory Rate 28 H 37 H 38 H Blood Pressure 89/69 L 104/83 Pulse Oximetry 98 96 03/04/21 20:34 03/04/21 20:37 03/04/21 22:00 Temperature 98.6 F Pulse Rate 114 H 110 H 123 H Respiratory Rate 37 H 39 H Blood Pressure 114/76 Pulse Oximetry 96 91 03/04/21 22:11 03/04/21 23:08 03/05/21 00:00 T
[2021-03-05] MEDS: ACETAMINOPHEN ELIXIR 325 MG/10.15 ML UDC 650 MG PO (17:41)
[2021-03-05] MEDS: METOCLOPRAMIDE HCL INJ 10 MG/2 ML VIAL IV PUSH ×2 (17:41→23:34)
[2021-03-05 17:57] LABS: Glucose Point of Care 95 mg/dl (65-105)
[2021-03-05] MEDS: FENTANYL 2,500MCG/NS250ML(*CRX 2,500 MCG/250 ML BAG 17.5 MCG IV CONT (21:00)
[2021-03-06] VITALS (47 sets, daily range): BP systolic 60–122; BP diastolic 48–79; PULSE 64–125; RESP 21–27; TEMP 36.1–38.3; O2SAT 93–100
[2021-03-06] LABS: Glucose Point of Care 157 mg/dl (65-105)
[2021-03-06] MEDS: ALBUTEROL SULFATE NEB 2.5 MG/0.5 ML INH INHALATION ×4 (01:11→21:00)
[2021-03-06] MEDS: IPRATROPIUM BR 0.02% INH SOLN 0.5 MG/2.5 ML VIAL INHALATION ×4 (01:11→21:00)
[2021-03-06] MEDS: MIDAZOLAM 100MG/NS 100ML(*CRX) 100 MG/100 ML BAG IV CONT (01:59)
[2021-03-06] MEDS: ACETAMINOPHEN ELIXIR 325 MG/10.15 ML UDC 650 MG PO (04:54)
[2021-03-06] MEDS: METOCLOPRAMIDE HCL INJ 10 MG/2 ML VIAL IV PUSH ×4 (05:24→23:28)
[2021-03-06] MEDS: CENTRAL LINE FLUSH 10 ML IV PUSH ×3 (05:24→22:17)
[2021-03-06 05:51] LABS: Hematocrit 25.4 % (37.0-47.0); Hemoglobin 8.3 g/dL (12.0-15.0); Mean Corpuscular HGB Conc 32.7 g/dl (32-36); Mean Corpuscular Hemoglobin 30.3 pg (26-34); Mean Corpuscular Volume 92.7 fl (80-100); Mean Platelet Volume 10.1 fl (7.4-10.4); Platelet Count Result 106 k/mm3 (150-375); Red Blood Count 2.74 M/mm3 (4.2-5.4); Red Cell Distribution Width 14.6 % (11.5-14.5)
[2021-03-06 06:05] LABS: Alveolar/Arterial O2 Gradient 464.2 mmHg; Base Excess ABG -0.5 mEq/l (+/-2.0); Carboxyhemoglobin 0.2 % THb (0-2.0); Fractional Inspired Oxygen 80 %; HCO3 ABG 24.4 mEq/l (22.0-26.0); Methemoglobin ABG 0.8 %THb (0-1.5); Oxygen Content ABG 11.3 %vol (16.0-22.0); Oxygen Saturation ABG 92.2 % (95.0-100.0); Oxyhemoglobin 91.7 % THb (90.0-100.0); PCO2 ABG 40.8 mmHg (35.0-45.0); PO2 ABG 63.4 mmHg (80.0-100.0); PO2 FiO2 Ratio Arterial Blood 0.79 %; Reduced Hemoglobin 7.3 %THb (0-5.0); Total Hemoglobin 8.7 g/dL (12.0-18.0); pH ABG 7.394 (7.350-7.450)
[2021-03-06 06:06] LABS: Device VENTILATOR; Modified Allen's Test Pass; Site Drawn RIGHT RADIAL
[2021-03-06 06:07] LABS: Arterial Blood Gas PEEP 5 cmH2O; Arterial Blood Gas Vent Mode CMV; Arterial Blood Gas Ventilator rate 24 /MIN
[2021-03-06 06:08] LABS: Arterial Blood Gas Tidal Volume 300 ml
[2021-03-06 06:14] LABS: Alanine Aminotransferase 21 U/L (4-35); Albumin Level 2.5 g/dL (3.5-5.1); Alkaline Phosphatase 65 U/L (38-126); Anion Gap 4 mmol/L (8-16); Aspartate Amino Transferase 25 U/L (14-36); Bilirubin,Total 0.6 mg/dL (0.2-1.3); Blood Urea Nitrogen 47 mg/dL (7-17); Calcium 8.3 mg/dL (8.4-10.2); Carbon Dioxide 26 mmol/L (22-30); Chloride 108 mmol/L (98-107); Estimated CRCL calculation 26 ml/min; Estimated Glomerular Filt Rate 43; Glucose 164 mg/dL (65-105); Magnesium 1.8 mg/dL (1.6-2.3); Phosphorus 2.1 mg/dL (2.5-4.5); Potassium 3.9 mmol/L (3.4-5.0); Sodium 138 mmol/L (137-145)
[2021-03-06 06:41] LABS: CRP 16.4 mg/dL (<1.0)
[2021-03-06] MEDS: ENOXAPARIN 40 MG/0.4 ML SYRINGE SUB-Q (09:04)
[2021-03-06] MEDS: PANTOPRAZOLE SODIUM IV 40 MG VIAL IV PUSH (09:05)
[2021-03-06] MEDS: MINERAL OIL/WHITE PETROLATUM OINTMENT 1 APPLIC EACH EYE ×2 (09:05→20:23)
[2021-03-06] MEDS: SODIUM CHLORIDE 0.9% IV 500 ML IV CONT (10:52)
--- NOTE | 2021-03-06 11:00 | PC.NURSE ---
Arrhythmias noted when bolus intiited via port access, RN switched bolus to peripheral IV site.
--- NOTE | 2021-03-06 11:24 | PCFNICU ---
ICU Rounding Note: Patient had 350mL residual overnight. Reglan initiated and residuals now been 150mL or less. Receiving Vital 1.2 at 40mL/hr with 30mL water flush every 4 hours. Recommend phosphorus replacement, if medically appropriate. Last recorded weight is 51.5kg which is slightly increased from last review. Bowel Motility: Last documented BM on 03/04/21. Labs Reviewed: Hgb (8.3), Hct (25.4), Glu (164), BUN (47), Cr (1.2), Alb (2.5), PO4 (2.1) Meds Noted: Albuterol, Fentanyl, Atrovent, Reglan, Versed, Morphine, Levophed, Protonix Additional Notes: No documented skin breakdown. Following daily in ICU rounds. Assessing/reassessing every Wednesday/Wednesday.
[2021-03-06] MEDS: FENTANYL 2,500MCG/NS250ML(*CRX 2,500 MCG/250 ML BAG 15 MCG IV CONT (12:51)
--- NOTE | 2021-03-06 13:17 | WPDINTPN ---
Progress Note: A&P Assessment and Plan (1) Acute respiratory failure with hypoxia: Code(s): J96.01 - Acute respiratory failure with hypoxia Status: Acute Assessment and Plan: patient with acute failure likely COVID-19 pneumonia on chest x-ray, ? secondary bacterial pneumonia - 03/04: increased oxygen requirements. tachypnea, use of accessory muscles of respiration, hypoxia. patient has been on BiPAP, 12/5, 100% FiO2 Intubated on 03/04/2021. - placed patient on low tidal volume, peep of 5, 80% FiO2. - chest x-ray with improving subcutaneous emphysema, ABGS reviewed, will wean FiO2 - patient still dyssynchronous with the ventilator, continue fentanyl and Versed infusion - status post Rocephin, azithromycin - she has also completed a 10 day course antibiotics with levofloxacin, cefepime and vancomycin - cultures have been negative - continue bronchodilators - incentive spirometry (2) Pneumonia due to COVID-19 virus: Code(s): U07.1 - COVID-19; J12.82 - Pneumonia due to coronavirus disease 2019 Status: Acute Assessment and Plan: patient with increased O2 requirements, elevated LDH, ferritin and CRP - SARS-CoV-2 PCR POSITIVE 02/22/2021 - SARS-CoV-2 PCR IgG antibody were nonreactive - total SARS-CoV-2 PCR antibodies were reactive ( according the lab this means that she could have had IgM antibodies positive) - continue dexamethasone and status post Remdesivir ( initiated on 02/23/2021) - continue droplet, airborne contact isolation/precautions - continue to trend inflammatory markers which are improving (3) Sepsis: Code(s): A41.9 - Sepsis, unspecified organism Status: Acute Assessment and Plan: resolved leukopenia, tachycardia, hypotension, acute kidney injury on 02/23/2021 - lactic acid levels were normal, - low blood pressures likely related to positive pressure ventilation and sedated medications. - Started on Levophed 03/05/21: maintain mean arterial pressures greater get 65 mmHg - 02/20/2021 blood cultures negative x2 - 02/23/2021: blood culture negative x2 - 02/20/2021 urine culture: negative - 02/23/2021 urine culture negative (4) Bilateral pneumonia: Code(s): J18.9 - Pneumonia, unspecified organism Status: Acute Assessment and Plan: chest x-ray with bilateral infiltrates likely COVID-19 - status post antibiotics negative cultures - continue supplemental oxygen, bronchodilator (5) Generalized weakness: Code(s): R53.1 - Weakness Status: Acute Assessment and Plan: likely related infection, sepsis, hypotension, COVID-19 (6) Urinary tract infection: Qualifiers: Hematuria presence: with hematuria Urinary tract infection type: site unspecified Qualified Code(s): N39.0 - Urinary tract infection, site not specified; R31.9 - Hematuria, unspecified Code(s): N39.0 - Urinary tract infection, site not specified Status: Acute Assessment and Plan: recent UTI, not treated optimally as she stop taking her antibiotics at home - urine cultures has been negative (7) GEE (acute kidney injury): Code(s): N17.9 - Acute kidney failure, unspecified Status: Acute Assessment and Plan: resolved - acute kidney injury likely related to hypotension, hypovolemia, infection, UTI - Low UO. 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
[2021-03-06] MEDS: NOREPINEPHRINE 8 MG/D5W 250 ML 8 MG/250 ML BAG 11.25 MG IV CONT (15:05)
--- NOTE | 2021-03-06 18:11 | PC.NURSE ---
Updated Peg ramsey, on patient status.
--- NOTE | 2021-03-06 19:02 | PM.IMPN ---
Progress Note: A&P Assessment and Plan (1) Pneumonia due to COVID-19 virus: Code(s): U07.1 - COVID-19; J12.82 - Pneumonia due to coronavirus disease 2019 Status: Acute Assessment and Plan: patient received from the [facility] and completed course now is off of everything Also was started on Rocephin and azithromycin 02/20 which was later switched to levofloxacin cefepime and vancomycin 02/23 patient is no longer on any antibiotics (2) SIRS (systemic inflammatory response syndrome): Code(s): R65.10 - Systemic inflammatory response syndrome (SIRS) of non-infectious origin without acute organ dysfunction Status: Acute (3) Sepsis: Qualifiers: Sepsis type: sepsis due to unspecified organism Sepsis acute organ dysfunction status: without acute organ dysfunction Qualified Code(s): A41.9 - Sepsis, unspecified organism Code(s): A41.9 - Sepsis, unspecified organism Status: Acute (4) Normocytic anemia: Code(s): D64.9 - Anemia, unspecified Status: Acute (5) Thrombocytopenia associated with COVID-19: Code(s): U07.1 - COVID-19; D69.59 - Other secondary thrombocytopenia Status: Acute Assessment and Plan: monitors patient is receiving heparin (6) Acute respiratory failure with hypoxia: Code(s): J96.01 - Acute respiratory failure with hypoxia Status: Acute Assessment and Plan: intubated sedated (7) GEE (acute kidney injury): Code(s): N17.9 - Acute kidney failure, unspecified Status: Acute Assessment and Plan: can consider IV fluids appreciate ICU management (8) Urinary tract infection: Qualifiers: Hematuria presence: with hematuria Urinary tract infection type: site unspecified Qualified Code(s): N39.0 - Urinary tract infection, site not specified; R31.9 - Hematuria, unspecified Code(s): N39.0 - Urinary tract infection, site not specified Status: Acute Assessment and Plan: completed antibiotic Subjective Date/time seen: 03/06/21 19:02 Interval history: intubated sedated RASS -2 Review of Systems Review of Systems: ROS unobtainable: Yes unobtainable due to medical condition Exam Const: General: other ( intubated sedated; RASS -2) HENMT: Head: normal to inspection Mouth: Yes Normal oral and palatal mucosa present Eyes: General: appearance normal, both eyes and all related structures Neck: Neck: normal visual inspection Resp: Auscultation: diminished lung sounds Cardio: Jugular venous distension: no JVD Rate: regular rate Rhythm: regular rhythm Heart sounds: S1 normal heart sound present and S2 normal heart sound present GI: Inspection: normal to inspection GI Palp: Yes Soft to palpation and Yes No hepatosplenomegaly present Percussion: Yes normal to percussion Auscultation: normal bowel sounds Urinary Catheter: Urinary Catheter: patent and draining Back/Spine/Pelvis: Back: no CVA tenderness Skin: General skin exam: normal color Neuro: General: other ( intubated sedated; RASS score -2) Extrem: General: normal to inspection and other ( bilateral lower extremities cool to touch; normal capillary refill) Objective Data Vital Signs Vital Signs: Vital Signs - 24 hr 03/05/21 20:00 03/05/21 20:44 03/05/21 20:46 Temperature 100.4 F H Pulse Rate 94 99 99 Respiratory Rate 26 H 26 H Blood Pressure 87/59 L Pulse Oximetry 97 97 03/05/21 20:56 03/05/21 21:00 03/05/21 21:10 Temperature Pulse Rate 105 H 99 Respiratory Rate 25 H 27 H Blood Pressure 90/56 L Pulse Oximetry 03/05/21 21:12 03/05/21 21:25 03/05/21 22:00 Temperature 99.0 F Pulse Rate 99 85 Respiratory Rate 27 H 26 H Blood Pressure 97/65 L Pulse Oximetry 97 96 03/05/21 23:32 03/05/21 23:45 03/05/21 23:50 Temperature Pulse Rate 88 87 92 Respiratory Rate 26 H Blood Pressure 95/72 L Pulse Oximetry 100 03/06/21 00:00
[2021-03-06 20:35] LABS: Glucose Point of Care 150 mg/dl (65-105)
[2021-03-06 20:36] LABS: Glucose Point of Care 123 mg/dl (65-105)
[2021-03-07] VITALS (46 sets, daily range): BP systolic 90–110; BP diastolic 60–75; PULSE 90–128; RESP 17–28; TEMP 37.2–37.9; O2SAT 89–97
[2021-03-07 00:05] LABS: Glucose Point of Care 126 mg/dl (65-105)
[2021-03-07] MEDS: ALBUTEROL SULFATE NEB 2.5 MG/0.5 ML INH INHALATION ×4 (02:42→21:00)
[2021-03-07] MEDS: IPRATROPIUM BR 0.02% INH SOLN 0.5 MG/2.5 ML VIAL INHALATION ×4 (02:42→21:00)
[2021-03-07] MEDS: FENTANYL 2,500MCG/NS250ML(*CRX 2,500 MCG/250 ML BAG 17.5 MCG IV CONT ×2 (04:40→18:30)
[2021-03-07 05:06] LABS: Hematocrit 25.3 % (37.0-47.0); Hemoglobin 8.2 g/dL (12.0-15.0); Mean Corpuscular HGB Conc 32.4 g/dl (32-36); Mean Corpuscular Hemoglobin 30.6 pg (26-34); Mean Corpuscular Volume 94.4 fl (80-100); Mean Platelet Volume 10.5 fl (7.4-10.4); Platelet Count Result 101 k/mm3 (150-375); Red Blood Count 2.68 M/mm3 (4.2-5.4); Red Cell Distribution Width 14.9 % (11.5-14.5); White Blood Count 11.9 K/mm3 (4.5-10.0)
[2021-03-07 05:20] LABS: Triglycerides 78 mg/dL (<150)
[2021-03-07] MEDS: CENTRAL LINE FLUSH 10 ML IV PUSH ×3 (05:22→21:01)
[2021-03-07] MEDS: METOCLOPRAMIDE HCL INJ 10 MG/2 ML VIAL IV PUSH ×4 (05:22→23:02)
[2021-03-07 05:28] LABS: Alanine Aminotransferase 18 U/L (4-35); Albumin Level 2.5 g/dL (3.5-5.1); Alkaline Phosphatase 68 U/L (38-126); Anion Gap 6 mmol/L (8-16); Aspartate Amino Transferase 22 U/L (14-36); Bilirubin,Total 0.5 mg/dL (0.2-1.3); Blood Urea Nitrogen 42 mg/dL (7-17); Calcium 8.3 mg/dL (8.4-10.2); Carbon Dioxide 27 mmol/L (22-30); Chloride 106 mmol/L (98-107); Estimated CRCL calculation 28 ml/min; Estimated Glomerular Filt Rate 48; Glucose 141 mg/dL (65-105); Magnesium 1.8 mg/dL (1.6-2.3); Phosphorus 2.2 mg/dL (2.5-4.5); Potassium 4.1 mmol/L (3.4-5.0); Sodium 139 mmol/L (137-145)
[2021-03-07 05:34] LABS: CRP 19.2 mg/dL (<1.0)
[2021-03-07 05:50] LABS: Glucose Point of Care 121 mg/dl (65-105)
[2021-03-07 06:26] LABS: Alveolar/Arterial O2 Gradient 390.9 mmHg; Base Excess ABG -0.8 mEq/l (+/-2.0); Carboxyhemoglobin 0.4 % THb (0-2.0); Fractional Inspired Oxygen 70 %; HCO3 ABG 24.4 mEq/l (22.0-26.0); Methemoglobin ABG 0.6 %THb (0-1.5); Oxygen Content ABG 21.4 %vol (16.0-22.0); Oxygen Saturation ABG 91.7 % (95.0-100.0); Oxyhemoglobin 91.7 % THb (90.0-100.0); PCO2 ABG 42.2 mmHg (35.0-45.0); PO2 ABG 62.8 mmHg (80.0-100.0); Reduced Hemoglobin 7.3 %THb (0-5.0); Total Hemoglobin 16.6 g/dL (12.0-18.0)
[2021-03-07 06:27] LABS: Arterial Blood Gas Vent Mode CMV; Arterial Blood Gas Ventilator rate 24 /MIN; Device VENTILATOR; Modified Allen's Test Pass; Site Drawn LEFT RADIAL
[2021-03-07 06:28] LABS: Arterial Blood Gas PEEP 5 cmH2O; Arterial Blood Gas Tidal Volume 300 ml
[2021-03-07 09:21] LABS: Add Urine Microscopic? YES; Appearance Urine Cloudy (Clear); Bacteria Urine Trace /hpf; Bilirubin Urine Negative (Negative); Budding Yeast Urine Present /hpf; Color Urine Yellow (Yellow); Glucose Urine UA Negative (Negative); Ketones Urine Negative (Negative); Leukocyte Esterase Ur 1+ LEU/UL (Negative); Mucus Urine Rare /lpf; Nitrate Urine Negative (Negative); Protein Urine 2+ mg/dL (Negative); Squamous Epithelial Cell Urine Rare /hpf (Few); Urobilinogen Urine Negative mg/dL (<2.0); WBC Urine 16-20 /hpf
[2021-03-07 09:26] LABS: Blood Urine Negative (Negative)
[2021-03-07] MEDS: ENOXAPARIN 40 MG/0.4 ML SYRINGE SUB-Q (09:47)
[2021-03-07] MEDS: MINERAL OIL/WHITE PETROLATUM OINTMENT 1 APPLIC EACH EYE ×2 (09:48→20:04)
[2021-03-07] MEDS: PANTOPRAZOLE SODIUM IV 40 MG VIAL IV PUSH (09:48)
[2021-03-07] MEDS: MIDAZOLAM 100MG/NS 100ML(*CRX) 100 MG/100 ML BAG IV CONT (09:55)
--- NOTE | 2021-03-07 11:20 | WPDINTPN ---
Progress Note: A&P Assessment and Plan (1) Acute respiratory failure with hypoxia: Code(s): J96.01 - Acute respiratory failure with hypoxia Status: Acute Assessment and Plan: patient with acute failure likely COVID-19 pneumonia on chest x-ray, ? secondary bacterial pneumonia - 03/04: increased oxygen requirements. tachypnea, use of accessory muscles of respiration, hypoxia. patient has been on BiPAP, 08/03, 100% FiO2 Intubated on 03/04/2021. - placed patient on low tidal volume, On 80% FiO2. , decrease PEEP to 3 - chest x-ray with worsening subcu emphysema, pneumomediastinum, worsening diffuse infiltrates, wean FiO2 to maintain O2 sats greater than 92% - sedated with fentanyl and Versed infusion - status post Rocephin, azithromycin and also completed a 10 day course antibiotics with levofloxacin, cefepime and vancomycin - continue bronchodilators (2) Pneumonia due to COVID-19 virus: Code(s): U07.1 - COVID-19; J12.82 - Pneumonia due to coronavirus disease 2019 Status: Acute Assessment and Plan: patient with increased O2 requirements, elevated LDH, ferritin and CRP - SARS-CoV-2 PCR POSITIVE 02/22/2021 - SARS-CoV-2 PCR IgG antibody were nonreactive - total SARS-CoV-2 PCR antibodies were reactive ( according the lab this means that she could have had IgM antibodies positive) - status post dexamethasone and Remdesivir - continue droplet, airborne contact isolation/precautions - continue to trend inflammatory markers which are improving (3) Sepsis: Qualifiers: Sepsis type: sepsis due to unspecified organism Sepsis acute organ dysfunction status: without acute organ dysfunction Qualified Code(s): A41.9 - Sepsis, unspecified organism Code(s): A41.9 - Sepsis, unspecified organism Status: Acute Assessment and Plan: resolved leukopenia, tachycardia, hypotension, acute kidney injury on 02/23/2021 - lactic acid levels were normal, - low blood pressures likely related to positive pressure ventilation and sedated medications. - 03/05: Started on Levophed maintain mean arterial pressures greater get 65 mmHg - 03/07: patient febrile with elevated leukocytosis, worsening infiltrates on chest x-ray, low-grade fevers - will obtain panculture - 03/07 will start vancomycin and Zosyn, will cover for pseudomonas too - 02/20/2021 blood cultures negative x2 - 02/23/2021: blood culture negative x2 - 02/20/2021 urine culture: negative - 02/23/2021 urine culture negative (4) Bilateral pneumonia: Code(s): J18.9 - Pneumonia, unspecified organism Status: Acute Assessment and Plan: chest x-ray with bilateral infiltrates likely COVID-19 - status post antibiotics negative cultures - continue supplemental oxygen, bronchodilator (5) Generalized weakness: Code(s): R53.1 - Weakness Status: Acute Assessment and Plan: likely related infection, sepsis, hypotension, COVID-19 (6) Urinary tract infection: Qualifiers: Hematuria presence: with hematuria Urinary tract infection type: site unspecified Qualified Code(s): N39.0 - Urinary tract infection, site not specified; R31.9 - Hematuria, unspecified Code(s): N39.0 - Urinary tract infection, site not specified Status: Acute Assessment and Plan: recent UTI, not treated optimally as she stop taking her antibiotics at home - urine cultures has been negative (7) GEE (acute kidney injury): Code(s): N17.9 - Acute kidney failure, unspecified Status: Acute Assessment and Plan: resolved - acute kidney injury likely related to hypotension, hypovolemia, infection, UTI - Low UO. Will give IV fluid bolus - continue monitor urine output, electrolytes and renal function - monitor BUN and creatinine stable at this time (8) Pneumomediastinum: Code(s): J98.2 - Interstitial emphysema Status: Acute Assessment and Plan:
--- NOTE | 2021-03-07 11:38 | PCNFU ---
Nutrition Follow-Up Complete: Inadequate Oral Intake as related to UTI as evidenced by weight loss and decreased appetite. Goal: Meet estimated nutritional needs. Patient is progressing towards goal. No new goal at this time. Pt current nutrition is Vital AF at 40 ml/hour over 22 hours per day with a 30 ml water flush Q4 providing patient with 1,056 calories, 66 grams of protein, and 893 ml of water. Last recorded weight is 52.5 kg. Bowel Motility: + BM 03/05- Started on Miralax Labs Reviewed: Hgb 8.2, Hct 25.3, Alb 2.5, GFR 48, BUN 42, Cr 1.1, Glu 141 Meds Noted: Albuterol, Vitamin C, Vitamin B-12, Lovenox, Heparin Sodium, Novolog, Atrovent Neb, Reglan, Miralax, Vitamin D, Vitamin B Complex Additional Notes: Followed in ICU rounds. Patient has no skin issues and is tolerating feedings fairly well with residuals in the low 100's. Doctor stated there is no reason for concern regarding residuals. Will monitor every T/F.
[2021-03-07] MEDS: polyethylene glycoL 3350 17 GM POWD.PACK PO (12:25)
[2021-03-07 14:05] LABS: Glucose Point of Care 89 mg/dl (65-105)
[2021-03-07 17:21] LABS: Glucose Point of Care 109 mg/dl (65-105)
--- NOTE | 2021-03-07 17:40 | PM.IMPN ---
Progress Note: A&P Assessment and Plan (1) Thrombocytopenia associated with COVID-19: Code(s): U07.1 - COVID-19; D69.59 - Other secondary thrombocytopenia Status: Acute (2) DVT prophylaxis: Code(s): Z29.9 - Encounter for prophylactic measures, unspecified Status: Acute (3) Pneumonia due to COVID-19 virus: Code(s): U07.1 - COVID-19; J12.82 - Pneumonia due to coronavirus disease 2019 Status: Acute (4) SIRS (systemic inflammatory response syndrome): Code(s): R65.10 - Systemic inflammatory response syndrome (SIRS) of non-infectious origin without acute organ dysfunction Status: Acute (5) Sepsis: Qualifiers: Sepsis type: sepsis due to unspecified organism Sepsis acute organ dysfunction status: without acute organ dysfunction Qualified Code(s): A41.9 - Sepsis, unspecified organism Code(s): A41.9 - Sepsis, unspecified organism Status: Acute (6) Acute respiratory failure with hypoxia: Code(s): J96.01 - Acute respiratory failure with hypoxia Status: Acute (7) Generalized weakness: Code(s): R53.1 - Weakness Status: Acute (8) Normocytic anemia: Code(s): D64.9 - Anemia, unspecified Status: Acute (9) Elevated serum creatinine: Code(s): R79.89 - Other specified abnormal findings of blood chemistry Status: Acute (10) Hypertension: Qualifiers: Hypertension type: unspecified Qualified Code(s): I10 - Essential (primary) hypertension Code(s): I10 - Essential (primary) hypertension Status: Acute (11) Urinary tract infection: Qualifiers: Hematuria presence: with hematuria Urinary tract infection type: site unspecified Qualified Code(s): N39.0 - Urinary tract infection, site not specified; R31.9 - Hematuria, unspecified Code(s): N39.0 - Urinary tract infection, site not specified Status: Acute (12) GEE (acute kidney injury): Code(s): N17.9 - Acute kidney failure, unspecified Status: Acute (13) Hyperlipidemia: Qualifiers: Hyperlipidemia type: mixed hyperlipidemia Qualified Code(s): E78.2 - Mixed hyperlipidemia Code(s): E78.5 - Hyperlipidemia, unspecified Status: Acute (14) Anxiety: Code(s): F41.9 - Anxiety disorder, unspecified Status: Acute Subjective Date/time seen: 03/07/21 17:40 Interval history: 80-year-old female is being managed for COVID pneumonia. Currently intubated and sedated. Leukocytosis noted. Completed Remdesivir. As per discussion with RN, patient was converted to DNR. Review of Systems Review of Systems: ROS unobtainable: Yes unobtainable due to medical condition Exam Const: General: other ( Intubated sedated) HENMT: Head: normal to inspection Eyes: General: appearance normal, both eyes and all related structures Chest: Chest palpation & inspection: normal inspection of the chest Resp: Auscultation: diminished lung sounds Percussion: percussion normal Cardio: Jugular venous distension: no JVD Palpation: normal PMI Rate: regular rate Rhythm: regular rhythm GI: Inspection: normal to inspection GI Palp: Yes Soft to palpation Percussion: Yes normal to percussion Auscultation: normal bowel sounds : General: Yes bimanual renal exam normal bilaterally Back/Spine/Pelvis: Back: no CVA tenderness Skin: General skin exam: normal color Neuro: General: other ( intubated sedated) Extrem: General: normal to inspection Objective Data Vital Signs Vital Signs: Vital Signs - 24 hr 03/06/21 18:00 03/06/21 19:00 03/06/21 20:00 Temperature 97.0 F L 97.4 F L Pulse Rate 72 78 80 Respiratory Rate 24 H 24 H Blood Pressure 109/72 103/73 102/69 Pulse Oximetry 99 96 03/06/21 20:27 03/06/21 20:29 03/06/21 21:02 Temperature Pulse Rate 95 90 82 Respiratory Rate 25 H 24 H Blood Pressure 86/63 L Pulse Oximetry 03/06/21 21:03 03/06/21 21:14
--- NOTE | 2021-03-07 18:20 | PC.NURSE ---
Updated Peg ramsey, on patient status.
[2021-03-07] MEDS: NOREPINEPHRINE 8 MG/D5W 250 ML 8 MG/250 ML BAG 7.5 MG IV CONT (19:58)
[2021-03-07 23:18] LABS: Glucose Point of Care 91 mg/dl (65-105)
[2021-03-08] VITALS (49 sets, daily range): BP systolic 84–113; BP diastolic 48–68; PULSE 86–129; RESP 24–33; TEMP 36.1–38.1; O2SAT 81–97
[2021-03-08] MEDS: ACETAMINOPHEN ELIXIR 325 MG/10.15 ML UDC 650 MG PO (00:25)
[2021-03-08] MEDS: ROCURONIUM BROMIDE 50 MG/5 ML VIAL 15 MG IV PUSH (00:56)
--- NOTE | 2021-03-08 01:12 | PC.NURSE ---
Addendum entered by Leah Martinez RN 03/08/21 01:19: At 0045 p.m. 03/08/2021. Original Note: Spoke with Dr. Spann regarding patient status. Patients oxygen saturations continue to drop and have only been maintaining anywhere from 83% to 87% despite interventions. Orders received to give patient 15 mg of Rocuronium IV push times one, and adjust patients PEEP to 5 cmH2O.
[2021-03-08] MEDS: ALBUTEROL SULFATE NEB 2.5 MG/0.5 ML INH INHALATION ×2 (01:52→08:48)
[2021-03-08] MEDS: IPRATROPIUM BR 0.02% INH SOLN 0.5 MG/2.5 ML VIAL INHALATION ×2 (01:52→08:48)
[2021-03-08] MEDS: CISATRACURIUM BESYLATE 20 MG/10 ML VIAL 7.9 MG IV PUSH (03:25)
[2021-03-08] MEDS: CISATRACURIUM BESYLATE 200 MG in DEXTROSE 5% 80 ML IV CONT (03:47)
--- NOTE | 2021-03-08 04:25 | PC.NURSE ---
Call to at 0245 a.m. with update on patient status. patient continues to decline despite interventions. patient's oxygen saturations are ranging from 80%-83%. New orders to prone patient and start patient on Nimbex IV gtt.
--- NOTE | 2021-03-08 04:27 | PC.NURSE ---
Baseline TO4 obtained with rheostat setting at 9 at 0300 a.m. Patient to be started on Nimbex gtt. per protocol.
--- NOTE | 2021-03-08 04:38 | PC.NURSE ---
patient proned at 0357 a.m., tolerating well with oxygen saturations improving at 90%.
[2021-03-08 05:05] LABS: Alveolar/Arterial O2 Gradient 602.6 mmHg; Base Excess ABG -0.9 mEq/l (+/-2.0); Carboxyhemoglobin 0.3 % THb (0-2.0); Fractional Inspired Oxygen 100 %; HCO3 ABG 25.8 mEq/l (22.0-26.0); Methemoglobin ABG 0.7 %THb (0-1.5); Oxygen Content ABG 11.7 %vol (16.0-22.0); Oxyhemoglobin 87.6 % THb (90.0-100.0); PCO2 ABG 53.3 mmHg (35.0-45.0); PO2 ABG 57.1 mmHg (80.0-100.0); PO2 FiO2 Ratio Arterial Blood 0.57 %; Reduced Hemoglobin 11.4 %THb (0-5.0); Total Hemoglobin 9.5 g/dL (12.0-18.0); pH ABG 7.303 (7.350-7.450)
[2021-03-08 05:08] LABS: Oxygen Saturation ABG 86.5 % (95.0-100.0)
[2021-03-08 05:09] LABS: Arterial Blood Gas Ventilator rate 28 /MIN; Device VENTILATOR; Modified Allen's Test Pass; Site Drawn RIGHT RADIAL
[2021-03-08 05:10] LABS: Arterial Blood Gas PEEP 5 cmH2O; Arterial Blood Gas Tidal Volume 270 ml; Arterial Blood Gas Vent Mode CMV
[2021-03-08] MEDS: METOCLOPRAMIDE HCL INJ 10 MG/2 ML VIAL IV PUSH ×2 (06:06→12:03)
[2021-03-08] MEDS: CENTRAL LINE FLUSH 10 ML IV PUSH (06:06)
[2021-03-08 06:43] LABS: Glucose Point of Care 124 mg/dl (65-105)
[2021-03-08 06:53] LABS: Hematocrit 26.6 % (37.0-47.0); Hemoglobin 8.3 g/dL (12.0-15.0); Mean Corpuscular HGB Conc 31.2 g/dl (32-36); Mean Corpuscular Hemoglobin 30.3 pg (26-34); Mean Corpuscular Volume 97.1 fl (80-100); Mean Platelet Volume 10.3 fl (7.4-10.4); Platelet Count Result 94 k/mm3 (150-375); Red Blood Count 2.74 M/mm3 (4.2-5.4); Red Cell Distribution Width 15.3 % (11.5-14.5); White Blood Count 12.1 K/mm3 (4.5-10.0)
[2021-03-08 07:11] LABS: Alanine Aminotransferase 29 U/L (4-35); Albumin Level 2.6 g/dL (3.5-5.1); Alkaline Phosphatase 95 U/L (38-126); Anion Gap 8 mmol/L (8-16); Aspartate Amino Transferase 37 U/L (14-36); Bilirubin,Total 0.6 mg/dL (0.2-1.3); Blood Urea Nitrogen 46 mg/dL (7-17); CRP 21.3 mg/dL (<1.0); Calcium 8.2 mg/dL (8.4-10.2); Carbon Dioxide 27 mmol/L (22-30); Chloride 102 mmol/L (98-107); Estimated CRCL calculation 22 ml/min; Estimated Glomerular Filt Rate 36; Glucose 131 mg/dL (65-105); Magnesium 1.9 mg/dL (1.6-2.3); Phosphorus 3.7 mg/dL (2.5-4.5); Potassium 4.2 mmol/L (3.4-5.0); Sodium 137 mmol/L (137-145)
[2021-03-08] MEDS: MINERAL OIL/WHITE PETROLATUM OINTMENT 1 APPLIC EACH EYE (09:02)
[2021-03-08] MEDS: ENOXAPARIN 40 MG/0.4 ML SYRINGE SUB-Q (09:02)
[2021-03-08] MEDS: PANTOPRAZOLE SODIUM IV 40 MG VIAL IV PUSH (09:03)
[2021-03-08] MEDS: FENTANYL 2,500MCG/NS250ML(*CRX 2,500 MCG/250 ML BAG 20 MCG IV CONT (09:03)
[2021-03-08] MEDS: MIDAZOLAM 100MG/NS 100ML(*CRX) 100 MG/100 ML BAG 6 MG IV CONT (09:42)
--- NOTE | 2021-03-08 11:10 | WPDINTPN ---
Progress Note: A&P Assessment and Plan (1) Acute respiratory failure with hypoxia: Code(s): J96.01 - Acute respiratory failure with hypoxia Status: Acute Assessment and Plan: patient with acute failure likely COVID-19 pneumonia on chest x-ray, ? secondary bacterial pneumonia - 03/04: increased oxygen requirements. tachypnea, use of accessory muscles of respiration, hypoxia. patient has been on BiPAP, /, 100% FiO2 Intubated on 03/04/2021. - 03/07/2029 night: Patient started desaturated, hypoxia, please oxygen requirement, patient had to be placed in prone position. Sedation was increased and patient was started on Nimbex for neuromuscular blockade and ventilator synchrony. - chest x-ray with subcu emphysema, pneumomediastinum, Bilateral diffuse infiltrates, - 100% FiO2 and peep of 5 - sedated with fentanyl and Versed infusion, also started on Nimbex infusion - patient was started on Zosyn and vancomycin on 03/07/2020 - continue bronchodilators (2) Pneumonia due to COVID-19 virus: Code(s): U07.1 - COVID-19; J12.82 - Pneumonia due to coronavirus disease 2019 Status: Acute Assessment and Plan: patient with increased O2 requirements, elevated LDH, ferritin and CRP - SARS-CoV-2 PCR POSITIVE 02/22/2021 - SARS-CoV-2 PCR IgG antibody were nonreactive - total SARS-CoV-2 PCR antibodies were reactive ( according the lab this means that she could have had IgM antibodies positive) - status post dexamethasone and Remdesivir - continue droplet, airborne contact isolation/precautions - continue to trend inflammatory markers which are improving (3) Sepsis: Qualifiers: Sepsis type: sepsis due to unspecified organism Sepsis acute organ dysfunction status: without acute organ dysfunction Qualified Code(s): A41.9 - Sepsis, unspecified organism Code(s): A41.9 - Sepsis, unspecified organism Status: Acute Assessment and Plan: resolved leukopenia, tachycardia, hypotension, acute kidney injury on 02/23/2021 - lactic acid levels were normal, - low blood pressures likely related to positive pressure ventilation and sedated medications. - 03/05: Started on Levophed maintain mean arterial pressures greater get 65 mmHg - 03/07: patient febrile with elevated leukocytosis, worsening infiltrates on chest x-ray, low-grade fevers - pancultured on 03/07/2020, pending - 03/07 will start vancomycin and Zosyn, will cover for pseudomonas too - 02/20/2021 blood cultures negative x2 - 02/23/2021: blood culture negative x2 - 02/20/2021 urine culture: negative - 02/23/2021 urine culture negative (4) Bilateral pneumonia: Code(s): J18.9 - Pneumonia, unspecified organism Status: Acute Assessment and Plan: chest x-ray with bilateral infiltrates likely COVID-19 - continue antibiotics as above - continue supplemental oxygen, bronchodilator (5) Generalized weakness: Code(s): R53.1 - Weakness Status: Acute Assessment and Plan: likely related infection, sepsis, hypotension, COVID-19 (6) Urinary tract infection: Qualifiers: Hematuria presence: with hematuria Urinary tract infection type: site unspecified Qualified Code(s): N39.0 - Urinary tract infection, site not specified; R31.9 - Hematuria, unspecified Code(s): N39.0 - Urinary tract infection, site not specified Status: Acute Assessment and Plan: recent UTI, not treated optimally as she stop taking her antibiotics at home - urine cultures has been negative (7) GEE (acute kidney injury): Code(s): N17.9 - Acute kidney failure, unspecified Status: Acute Assessment and Plan: resolved - acute kidney injury likely related to hypotension, hypovolemia, infection, UTI - Low UO. was given 500 mL IV fluid bolus on 03/07/2021 - creatinine increasing, urine output has been adequate - continue monitor urine output, electrolytes and renal
[2021-03-08] MEDS: polyethylene glycoL 3350 17 GM POWD.PACK PO (12:05)
[2021-03-08 12:27] LABS: Glucose Point of Care 110 mg/dl (65-105)
--- NOTE | 2021-03-08 14:40 | PM.IMPN ---
Progress Note: A&P Assessment and Plan (1) Acute respiratory failure with hypoxia: Code(s): J96.01 - Acute respiratory failure with hypoxia Status: Acute Assessment and Plan: intubated sedated has pneumomediastinum 03/08 nimbex added for sedation (2) Pneumonia due to COVID-19 virus: Code(s): U07.1 - COVID-19; J12.82 - Pneumonia due to coronavirus disease 2019 Status: Acute Assessment and Plan: Completed remdesivir and dexamethasone (3) Thrombocytopenia associated with COVID-19: Code(s): U07.1 - COVID-19; D69.59 - Other secondary thrombocytopenia Status: Acute Assessment and Plan: Monitor (4) SIRS (systemic inflammatory response syndrome): Code(s): R65.10 - Systemic inflammatory response syndrome (SIRS) of non-infectious origin without acute organ dysfunction Status: Acute (5) Sepsis: Qualifiers: Sepsis type: sepsis due to unspecified organism Sepsis acute organ dysfunction status: without acute organ dysfunction Qualified Code(s): A41.9 - Sepsis, unspecified organism Code(s): A41.9 - Sepsis, unspecified organism Status: Acute (6) Generalized weakness: Code(s): R53.1 - Weakness Status: Acute (7) Normocytic anemia: Code(s): D64.9 - Anemia, unspecified Status: Acute (8) Elevated serum creatinine: Code(s): R79.89 - Other specified abnormal findings of blood chemistry Status: Acute (9) Hypertension: Qualifiers: Hypertension type: unspecified Qualified Code(s): I10 - Essential (primary) hypertension Code(s): I10 - Essential (primary) hypertension Status: Acute (10) Urinary tract infection: Qualifiers: Hematuria presence: with hematuria Urinary tract infection type: site unspecified Qualified Code(s): N39.0 - Urinary tract infection, site not specified; R31.9 - Hematuria, unspecified Code(s): N39.0 - Urinary tract infection, site not specified Status: Acute Assessment and Plan: completed antibiotic (11) GEE (acute kidney injury): Code(s): N17.9 - Acute kidney failure, unspecified Status: Acute Assessment and Plan: 03/08 creatinine 1.4 (12) Anxiety: Code(s): F41.9 - Anxiety disorder, unspecified Status: Acute Assessment and Plan: sedation while ventilated Subjective Date/time seen: 03/08/21 14:40 Interval history: 80-year-old female is being managed for COVID pneumonia. Currently intubated and sedated. Leukocytosis noted. Completed Remdesivir. Prone positioning trial 03/08. Review of Systems Review of Systems: ROS unobtainable: Yes unobtainable due to medical condition Exam Narrative: Exam Narrative: LAYING IN BED EXAM IS LIMITED TO INSPECTION AND TELEMETRY READINGS Const: General: ill appearing and other ( Intubated sedated) Nutritional Appearance: average body habitus HENMT: Head: normal to inspection Ears: hearing grossly normal bilaterally General nose exam: Normal external nose present Face and sinus: normal facial exam Mouth: Yes Normal oral and palatal mucosa present and Yes other ( ET TUBE IN PLACE) Throat: tonsils absent Eyes: General: appearance normal, both eyes and all related structures Sclera: sclerae normal Pupils: Equal, round and reactive pupils present EOM: EOMs intact bilaterally Neck: Neck: normal visual inspection and supple Thyroid: thyroid normal Lymphatic: no lymphadenopathy noted Chest: Chest palpation & inspection: normal inspection of the chest Resp: Effort & Inspection: normal respiratory effort ( ON VENTILATOR SUPPORT) Cardio: Jugular venous distension: no JVD Rate: tachycardic Rhythm: regular rhythm GI: Inspection: normal to inspection Auscultation: normal bowel sounds Urinary Catheter: Urinary Catheter: patent and draining Back/Spine/Pelvis: Back: no CVA tenderness Skin: General skin exam: normal color and no rash
[2021-03-08] MEDS: LORazepam INJ (*CRX) 2 MG/ML VIAL IV PUSH (14:43)
[2021-03-08] MEDS: MORPHINE SULFATE INJ (*CRX) 10 MG/ML AMP 5 MG IV PUSH (14:44)
--- NOTE | 2021-03-08 15:05 | PC.NURSE ---
Patient extubated at 1447.
[2021-03-08] MEDS: MORPHINE SULFATE (*CRX) 2 MG/ML INJ IV PUSH (15:21)
--- NOTE | 2021-03-18 14:01 | P.DN_ITS ---
Discharge Sum: Prov Provider Primary care physician: Neftaly Reyes MD Admitting provider: Renan Reynolds MD Consults: 02/23/21 Consult to Physician Routine Comment: Consulting Provider: Seng Payton voting machine mechanic/MD group to consult: Fito Johns Reason for consultation: Called him- Hypoxic resp failure Has provider been notified: Yes Discharge Sum: Diag Contributing Factors (1) Acute respiratory failure with hypoxia: (2) Pneumonia due to COVID-19 virus: (3) Thrombocytopenia associated with COVID-19: (4) Sepsis: (5) Normocytic anemia: (6) Hypertension: (7) Urinary tract infection: (8) GEE (acute kidney injury): (9) Anxiety: (10) Pneumomediastinum: Discharge Sum: Summary Date and Time Date of admission: 02/20/21 13:01 Summary Details: 80 y/o f admitted to [facility] care 01/20 on 03/08/21. She was admitted with respiratory failure due to COVID-19 pneumonia. In spite of appropriate therapy with dexamethasone and remdesivir, she deteriorated over the ensuing 48 hours and required transfer to ICU due to high flow oxygen requirements. Eventually, she required mechanical ventilation. Unfortunately she continued to deteriorate and developed pneumomediastinum. She was DNR status and succumbed to her illness on 03/08/2021. Additional Data Attending physician: Kady Velasco MD
== END 2021-03-08 15:56 | disposition expired | DRG 207 ==
LOC: ANHED 10:12 → ANH2MED 02-21 08:01 → ANHICU 02-24 08:08 → ANH2MED 03-10 13:07 → ANH3MEDSUR 03-10 13:07 → ANHICU 03-10 13:07
PROVIDERS: Emergency Medicine; Internal Medicine; Physician Assistant; Admitting Provider Internal Medicine; Emergency Provider Emergency Medicine; PCP Family Medicine; Visit Provider Internal Medicine
DX: U07.1 COVID-19; J12.82 Pneumonia due to coronavirus disease 2019; A41.9 Sepsis, unspecified organism; J96.01 Acute respiratory failure with hypoxia; N17.9 Acute kidney failure, unspecified; N39.0 Urinary tract infection, site not specified; J98.2 Interstitial emphysema; D69.59 Other secondary thrombocytopenia; R31.9 Hematuria, unspecified; C53.9 Malignant neoplasm of cervix uteri, unspecified; E86.0 Dehydration; D64.9 Anemia, unspecified; D72.819 Decreased white blood cell count, unspecified; R53.1 Weakness; I10 Essential (primary) hypertension; E78.5 Hyperlipidemia, unspecified; M19.90 Unspecified osteoarthritis, unspecified site; F41.9 Anxiety disorder, unspecified; Z66 Do not resuscitate; Z79.899 Other long term (current) drug therapy; Z85.72 Personal history of non-Hodgkin lymphomas; Z87.442 Personal history of urinary calculi; Z92.21 Personal history of antineoplastic chemotherapy; Z92.3 Personal history of irradiation; Z97.8 Presence of other specified devices; Z98.42 Cataract extraction status, left eye; Z98.41 Cataract extraction status, right eye; Z96.1 Presence of intraocular lens
CPT/HCPCS: 31500; 36415; 36600; 51701; 71045; 71250; 74176; 76775; 80048; 80053; 80069; 80076; 80202; 81001; 82274; 82375; 82565; 82607; 82728; 82746; 82805; 82948; 83050; 83540; 83550; 83605; 83615; 83735; 83880; 84100; 84443; 84460; 84478; 85025; 85027; 85046; 85380; 85610; 85730; 86140; 86413; 86769; 87040; 87070; 87077; 87086; 87088; 87186; 87205; 87449; 87804; 87899; 93005; 93306; 93970; 94002; 94003; 94640; 94667; 94668; 97110; 97161; 97165; 97530; 97535; 99285; A9270; C9113; C9803; J0131; J0456; J0692; J0696; J1100; J1642; J1650; J1756; J1940; J1956; J2060; J2250; J2270; J2405; J2543; J2704; J2765; J3010; J3370; J3420; J3480; J7030; J7040; U0003; U0005